=== PATIENT | male | born 1980 | race Caucasian/White ===

== ENCOUNTER → 2017-12-03 | Outpatient (CLI) | payer OTHER ==
[~2017-12-03] MED LIST: EXEN5PENI; INSULANPEN; LISI20 PO; LOVA40 PO
[2017-12-03 11:33] LABS: BASOPHILS ABSOLUTE AUTO 0.02 K/mm3 (0.00-0.23); BASOPHILS PERCENT AUTO 0 % (0-2); EOSINOPHILS ABSOLUTE AUTO 0.21 K/mm3 (0.00-0.68); EOSINOPHILS PERCENT AUTO 2 % (0-6); Hematocrit 47.9 % (37.0-53.0); Hemoglobin 16.2 g/dL (13.5-17.5); IMMATURE GRAN ABSOLUTE AUTO 0.02 K/mm3 (0.00-0.10); IMMATURE GRAN PERCENT AUTO 0 % (0-1); LYMPHOCYTES ABSOLUTE AUTO 2.62 K/mm3 (0.84-5.20); LYMPHOCYTES PERCENT AUTO 27 % (21-46); MONOCYTES ABSOLUTE AUTO 0.52 K/mm3 (0.16-1.47); MONOCYTES PERCENT AUTO 5 % (4-13); Mean Corpuscular HGB 28.8 pg (26.0-34.0); Mean Corpuscular HGB Conc 33.8 g/dL (31.5-36.5); Mean Corpuscular Volume 85 fL (80-100); Mean Platelet Volume 11.1 fL (9.1-12.4); NEUTROPHILS ABSOLUTE AUTO 6.24 K/mm3 (1.96-9.15); NEUTROPHILS PERCENT AUTO 65 % (41-73); Platelet Count 212 K/mm3 (150-400); RDW Coefficient Variation 11.7 % (11.7-14.2); RDW Standard Deviation 36.1 fL (35.1-46.3); Red Blood Cell Count 5.62 M/mm3 (4.30-5.90); White Blood Cell Count 9.63 K/mm3 (4.00-11.30)
[2017-12-03 12:34] LABS: Alanine Aminotransfer (ALT/SGP 21 U/L (12-78); Albumin, Blood 3.8 g/dL (3.4-5.0); Albumin/Globulin Ratio 1.2 (0.8-1.8); Alk Phos 62 U/L (50-136); Anion Gap 9 mmol/L (6-16); Aspartate Aminotrans (AST/SGOT 13 U/L (12-37); Bilirubin, Total 0.6 mg/dL (0.1-1.0); Blood Urea Nitrogen 12 mg/dL (8-24); Bun/Creatinine Ratio 18.2 (12.0-20.0); CHOL/HDL RATIO 3.8; CO2, Blood 26 mmol/L (21-32); Chloride, Blood 102 mmol/L (98-108); Cholesterol 149 mg/dL (50-200); Creatinine, Blood 0.66 mg/dL (0.60-1.20); Globulin, Blood 3.3 g/dL (2.2-4.0); Glomerular Filtration Rate >60 (60-); Glucose, Blood 308 mg/dL (70-99); HDL Cholesterol 39 mg/dL (>39); LDL/HDL RATIO 2.3; Low Density Lipoprotein Chol 89 mg/dL (0-110); Potassium, Blood 4.3 mmol/L (3.5-5.5); Sodium, Blood 137 mmol/L (136-145); Total Protein, Blood 7.1 g/dL (6.4-8.2); Triglycerides 106 mg/dL (30-140); Very Low Density Lipoprot Chol 21 mg/dL (6-28)
== END | disposition home or self-care (01) ==
LOC: LAB SHORT 08:33 → LAB UCHC 08:33
PROVIDERS: Nurse Practitioner Primary Care
DX: E11.9 Type 2 diabetes mellitus without complications (principal)
CPT/HCPCS: 80053; 80061; 83036; 85025

== ENCOUNTER 2019-04-20 04:34 | Emergency (ER) | payer OTHER ==
[~2019-04-20] VITALS: Ht 182.9 cm; Wt 86.2 kg
[~2019-04-20 04:34] MED LIST changes: -LOVA40 PO; +Lovastatin20 MG PO
[2019-04-20] MEDS ORDERED: CEPH500 PO (06:35)
[2019-04-20] MEDS ORDERED: Mupirocin22 GM TOP (06:35)
[2019-04-20] MEDS ORDERED: Bactrim Ds Tab1 EACH PO (06:35)
== END 2019-04-20 07:09 | disposition home or self-care (01) ==
LOC: ER 04:34
DX: L03.116 Cellulitis of left lower limb (principal); E11.9 Type 2 diabetes mellitus without complications; F17.210 Nicotine dependence, cigarettes, uncomplicated; Z79.899 Other long term (current) drug therapy; Z79.4 Long term (current) use of insulin
CPT/HCPCS: 99283; A9270; A9270-GY

== ENCOUNTER 2019-04-22 11:19 | Inpatient (IN) | payer OTHER ==
[~2019-04-22] VITALS: Ht 182.9 cm; Wt 88.8 kg
[~2019-04-22 11:19] MED LIST changes: +Bactrim Ds Tab1 EACH PO; +CEPH500 PO; +Mupirocin22 GM TOP
[2019-04-22] MEDS ORDERED: GLIP5ER PO (15:43)
[2019-04-22] MEDS ORDERED: METF500 PO (15:43)
[2019-04-22] MEDS ORDERED: CYCL10 PO (15:44)
[2019-04-22] MEDS ORDERED: GABA300 PO (15:45)
[2019-04-22] MEDS ORDERED: BASAGLAR K100 UNIT/2 SC (15:46)
[2019-04-22] MEDS ORDERED: SERT25 PO (15:50)
[2019-04-22] MEDS ORDERED: ASPIR 8181 MG PO (15:50)
[2019-04-22] MEDS ORDERED: NOVOLOG MIX 70/30 SC (15:52)
[2019-04-23 05:10] LABS: BASOPHILS ABSOLUTE AUTO 0.02 K/mm3 (0.00-0.23); BASOPHILS PERCENT AUTO 0 % (0-2); EOSINOPHILS ABSOLUTE AUTO 0.24 K/mm3 (0.00-0.68); EOSINOPHILS PERCENT AUTO 2 % (0-6); Hematocrit 44.2 % (37.0-53.0); Hemoglobin 14.5 g/dL (13.5-17.5); IMMATURE GRAN ABSOLUTE AUTO 0.02 K/mm3 (0.00-0.10); IMMATURE GRAN PERCENT AUTO 0 % (0-1); LYMPHOCYTES ABSOLUTE AUTO 3.13 K/mm3 (0.84-5.20); LYMPHOCYTES PERCENT AUTO 28 % (21-46); MONOCYTES PERCENT AUTO 7 % (4-13); Mean Corpuscular HGB 29.2 pg (26.0-34.0); Mean Corpuscular HGB Conc 32.8 g/dL (31.5-36.5); Mean Corpuscular Volume 89 fL (80-100); NEUTROPHILS ABSOLUTE AUTO 6.83 K/mm3 (1.96-9.15); NEUTROPHILS PERCENT AUTO 62 % (41-73); Platelet Count 183 K/mm3 (150-400); RDW Standard Deviation 39.1 fL (35.1-46.3); Red Blood Cell Count 4.97 M/mm3 (4.30-5.90); White Blood Cell Count 11.04 K/mm3 (4.00-11.30)
[2019-04-23 05:31] LABS: U Amphetamine Screen Not Detected; U Barbituate Screen Not Detected; U Methamphetamine Screen Not Detected
[2019-04-23 05:32] LABS: U Benzodiazapine Screen Not Detected; U Buprenorphine Screen Not Detected; U Cannabinoids Screen DETECTED; U Cocaine Screen Not Detected; U Methadone Screen Not Detected; U Opiates Screen Not Detected; U Oxycodone Screen Not Detected; U Propoxyphene Screen Not Detected
[2019-04-23 05:48] LABS: Alanine Aminotransfer (ALT/SGP 19 U/L (12-78); Albumin, Blood 2.9 g/dL (3.4-5.0); Albumin/Globulin Ratio 1.1 (0.8-1.8); Alk Phos 56 U/L (50-136); Anion Gap 5 mmol/L (6-16); Aspartate Aminotrans (AST/SGOT 9 U/L (12-37); Bilirubin, Total 0.4 mg/dL (0.1-1.0); Blood Urea Nitrogen 13 mg/dL (8-24); Bun/Creatinine Ratio 20.8 (12.0-20.0); CO2, Blood 24 mmol/L (21-32); Calcium, Blood 8.1 mg/dL (8.5-10.1); Chloride, Blood 111 mmol/L (98-108); Creatinine, Blood 0.63 mg/dL (0.60-1.20); Globulin, Blood 2.7 g/dL (2.2-4.0); Glomerular Filtration Rate >60 (60-); Glucose, Blood 128 mg/dL (70-99); Magnesium, Blood 1.8 mg/dL (1.6-2.4); Sodium, Blood 140 mmol/L (136-145); Total Protein, Blood 5.6 g/dL (6.4-8.2)
--- NOTE | 2019-04-23 06:49 | NUR ---
Patient comfortable most of night after single dose of ultram upon arrival on floor. Left foot cleansed with sterile saline and skintegrity, then toes (which are abraded and covered in purlulent fluid and bleeding between each toe. very large blister lateral aspect left great toe, and broken open blister on back of toe) were wrapped in petroleum gauze, then again in kerlix. Patient tolerated well. A&OX4, up with FWW to bathroom. GRAM +COCCI IN CHAINS NOTED ON BLOOD CULTURES DRAWN IN ER. PHARMACIST WAS NOTIFIED AND COMBINATION OF VANCOMYCIN AND ROCEPHIN PATIENT IS CURRENTLY RECEIVING ARE APPROPRIATE FOR THESE BACTERIA.
[2019-04-23 14:23] LABS: Vancomycin, Trough 10.3 ug/mL (5.0-10.0)
--- NOTE | 2019-04-23 18:42 | NUR ---
PATIENT A/OX4, UP INDEPENDENTLY IN ROOM. VSS, ON RA. ACHS BLOOD SUGARS, NO SS COEVERAGE NEEDED THIS SHIFT. TOLERATING ADA DIET. 20G IV TO L AC WNL AND SL. ROCEPHIN AND VANCOMYCIN TO TREAT L FOOT INFECTION. PATIENT IS CALM AND COOPERATIVE WITH CARE AND CALLS APPROPRIATELY FOR ASSISTANCE.
--- NOTE | 2019-04-24 18:47 | NUR ---
PATIENT SEEN TODAY BY DR COTTER THE ABSTRACT CHECKER. NONADHERENT DRESSING TO L FOOT WOUND, REDNESS AND SWELLING CONTINUES TO IMPROVE. PATIENT NOW ON MAXIPIME IV. 20G IV TO R AC WNL AND SL. TRAMADOL EFFECTIVE IN CONTROLLING PAIN. UP INDEPENDENTLY IN ROOM. CALM AND COOPERATIVE WITH CARE CALLS APPROPRIATELY FOR ASSISTANCE.
[2019-04-25] MEDS ORDERED: GABA300 PO (10:37)
[2019-04-25] MEDS ORDERED: SERT25 PO (10:39)
[2019-04-25] MEDS ORDERED: LEVFLO500 PO (10:39)
[2019-04-25] MEDS ORDERED: Vsl#3 Capsule1 EACH PO (10:40)
--- NOTE | 2019-04-25 11:30 | NUR ---
DISCHARGE INTRUCTIONS GONE OVER WITH PT AND FAMILY. INSTRUCTED PT ON HOW TO OBTAIN PRESCRIPTIONS FROM [facility] IN [place]. PROVIDED PT WITH WRITTEN SCRIPTS FOR WORK AND DIABETIC SHOES. ENCOURAGE PT TO RE-ESTABLISH PCP AND TO FOLLOW UP. INSTRUCTED PT TO FOLLOW UP WITH WOUND CLINIC AND FOLLOW DRESSING CHANGES. NEW DRESSING APPLIED TO PT'S LEFT FOOT/TOES PRIOR TO DISCHARGE. PROVIDED DISCHARGE EDUCATION TO PT ABOUT NEW MEDICATIONS, FOLLOW UP AND TO TRY TO QUIT SMOKING. BELONGINGS GATHERED AND GIVEN TO PT. PT ESCORTED OUT VIA WHEEL CHAIR BY EDNA HALL.
== END 2019-04-25 11:35 | disposition home or self-care (01) | DRG 872 ==
LOC: ER 11:19 → MEDS 20:37 → EDPENDDIS 04-25 10:01 → ENPENDDIS 04-25 10:01 → MEDS 04-25 11:35
PROVIDERS: Nurse Practitioner Acute Care; ADMIT Internal Medicine
DX: A41.81 Sepsis due to Enterococcus (principal); L03.116 Cellulitis of left lower limb; I10 Essential (primary) hypertension; E11.42 Type 2 diabetes mellitus with diabetic polyneuropathy; E78.5 Hyperlipidemia, unspecified; F32.9 Major depressive disorder, single episode, unspecified; F17.210 Nicotine dependence, cigarettes, uncomplicated; Z79.4 Long term (current) use of insulin
CPT/HCPCS: 36415; 73701; 80053; 80202; 82947; 83036; 83605; 83735; 85025; 87040; 96365-59; 96366; 96367-59; 99285-25; J0692; J0696; J3370; J7030; J7050; Q9967

== ENCOUNTER 2019-05-03 00:11 | Day surgery (SDC) | payer OTHER ==
[~2019-05-03 00:11] MED LIST changes: +ASPIR 8181 MG PO; +BASAGLAR K100 UNIT/2 SC; +CYCL10 PO; +GABA300 PO; +GLIP5ER PO; +LEVFLO500 PO; +METF500 PO; +NOVOLOG MIX 70/30 SC; +SERT25 PO; +Vsl#3 Capsule1 EACH PO
== END 2019-05-03 23:01 | disposition home or self-care (01) ==
LOC: WOUND 00:11
DX: E11.621 Type 2 diabetes mellitus with foot ulcer (principal); I73.1 Thromboangiitis obliterans [Buerger's disease]; F17.210 Nicotine dependence, cigarettes, uncomplicated; J45.909 Unspecified asthma, uncomplicated; E78.5 Hyperlipidemia, unspecified; I10 Essential (primary) hypertension; L97.429 Non-pressure chronic ulcer of left heel and midfoot with unspecified severity; Z79.899 Other long term (current) drug therapy; Z79.82 Long term (current) use of aspirin; Z79.4 Long term (current) use of insulin
CPT/HCPCS: G0463

== ENCOUNTER 2019-05-10 15:00 | Day surgery (SDC) | payer OTHER | END 2019-05-10 23:42 | disposition home or self-care (01) | LOC: WOUND 15:00 | DX: E11.621 Type 2 diabetes mellitus with foot ulcer (principal); L97.422 Non-pressure chronic ulcer of left heel and midfoot with fat layer exposed; F17.210 Nicotine dependence, cigarettes, uncomplicated; E78.5 Hyperlipidemia, unspecified; I10 Essential (primary) hypertension; I73.1 Thromboangiitis obliterans [Buerger's disease]; Z79.82 Long term (current) use of aspirin; Z79.4 Long term (current) use of insulin; Z79.899 Other long term (current) drug therapy | CPT/HCPCS: G0463 ==

== ENCOUNTER 2019-05-16 00:10 | Day surgery (SDC) | payer OTHER | END 2019-05-16 22:36 | disposition home or self-care (01) | LOC: WOUND 00:10 | DX: I73.1 Thromboangiitis obliterans [Buerger's disease] (principal); E11.621 Type 2 diabetes mellitus with foot ulcer; L97.422 Non-pressure chronic ulcer of left heel and midfoot with fat layer exposed; I10 Essential (primary) hypertension; E78.5 Hyperlipidemia, unspecified; J45.909 Unspecified asthma, uncomplicated; F17.210 Nicotine dependence, cigarettes, uncomplicated; Z79.82 Long term (current) use of aspirin; Z79.4 Long term (current) use of insulin; Z79.899 Other long term (current) drug therapy ==

== ENCOUNTER 2019-05-23 17:10 | Inpatient (IN) | payer OTHER ==
[~2019-05-23] VITALS: Ht 182.9 cm; Wt 90.9 kg
[2019-05-23 19:16] LABS: BASOPHILS ABSOLUTE AUTO 0.03 K/mm3 (0.00-0.23); BASOPHILS PERCENT AUTO 0 % (0-2); EOSINOPHILS ABSOLUTE AUTO 0.52 K/mm3 (0.00-0.68); EOSINOPHILS PERCENT AUTO 5 % (0-6); Hematocrit 45.2 % (37.0-53.0); Hemoglobin 14.7 g/dL (13.5-17.5); IMMATURE GRAN ABSOLUTE AUTO 0.03 K/mm3 (0.00-0.10); IMMATURE GRAN PERCENT AUTO 0 % (0-1); LYMPHOCYTES ABSOLUTE AUTO 3.24 K/mm3 (0.84-5.20); LYMPHOCYTES PERCENT AUTO 31 % (21-46); MONOCYTES ABSOLUTE AUTO 0.61 K/mm3 (0.16-1.47); MONOCYTES PERCENT AUTO 6 % (4-13); Mean Corpuscular HGB Conc 32.5 g/dL (31.5-36.5); Mean Corpuscular Volume 89 fL (80-100); Mean Platelet Volume 10.8 fL (9.1-12.4); NEUTROPHILS ABSOLUTE AUTO 5.92 K/mm3 (1.96-9.15); NEUTROPHILS PERCENT AUTO 57 % (41-73); Platelet Count 232 K/mm3 (150-400); RDW Coefficient Variation 11.8 % (11.7-14.2); RDW Standard Deviation 38.5 fL (35.1-46.3); Red Blood Cell Count 5.07 M/mm3 (4.30-5.90); White Blood Cell Count 10.35 K/mm3 (4.00-11.30)
[2019-05-23 19:32] LABS: Anion Gap 1 mmol/L (6-16); Blood Urea Nitrogen 14 mg/dL (8-24); Bun/Creatinine Ratio 27.3 (12.0-20.0); CO2, Blood 31 mmol/L (21-32); Calcium, Blood 9.2 mg/dL (8.5-10.1); Chloride, Blood 103 mmol/L (98-108); Creatinine, Blood 0.51 mg/dL (0.60-1.20); Glomerular Filtration Rate >60 (60-); Glucose, Blood 339 mg/dL (70-99); Potassium, Blood 4.6 mmol/L (3.5-5.5); Sodium, Blood 135 mmol/L (136-145)
[2019-05-24 04:55] LABS: BASOPHILS ABSOLUTE AUTO 0.04 K/mm3 (0.00-0.23); BASOPHILS PERCENT AUTO 0 % (0-2); EOSINOPHILS PERCENT AUTO 5 % (0-6); Hematocrit 40.4 % (37.0-53.0); Hemoglobin 13.1 g/dL (13.5-17.5); IMMATURE GRAN ABSOLUTE AUTO 0.04 K/mm3 (0.00-0.10); IMMATURE GRAN PERCENT AUTO 0 % (0-1); LYMPHOCYTES PERCENT AUTO 41 % (21-46); MONOCYTES ABSOLUTE AUTO 0.58 K/mm3 (0.16-1.47); MONOCYTES PERCENT AUTO 6 % (4-13); Mean Corpuscular HGB 28.5 pg (26.0-34.0); Mean Corpuscular HGB Conc 32.4 g/dL (31.5-36.5); Mean Corpuscular Volume 88 fL (80-100); Mean Platelet Volume 10.3 fL (9.1-12.4); NEUTROPHILS ABSOLUTE AUTO 4.36 K/mm3 (1.96-9.15); NEUTROPHILS PERCENT AUTO 46 % (41-73); Platelet Count 198 K/mm3 (150-400); RDW Coefficient Variation 11.9 % (11.7-14.2); RDW Standard Deviation 38.2 fL (35.1-46.3); Red Blood Cell Count 4.59 M/mm3 (4.30-5.90); White Blood Cell Count 9.42 K/mm3 (4.00-11.30)
--- NOTE | 2019-05-24 05:09 | NUR ---
SHIFT SUMMARY- PT. ARRIVED FROM ED. A&OX4, INDEPENDENT IN ROOM. PT. WITH CELLULITIS TO THE LT FOOT. C/O PAIN TO LT TOES. MEDICATED PER EMAR, WITH GOOD RELIEF. CONSULT CALLED TO PODIATRY FOR PT. TO BE SEEN THIS AM. PT. APPEAARS TO BE RESTING COMFORTABLY IN BED, NO APPARENT DISTRESS NOTED. CALL LIGHT WITHIN REACH AND SIDE RAILS UP X2. WILL CONT TO MONITOR.
[2019-05-24 05:15] LABS: Anion Gap 3 mmol/L (6-16); Blood Urea Nitrogen 15 mg/dL (8-24); Bun/Creatinine Ratio 23.3 (12.0-20.0); CO2, Blood 29 mmol/L (21-32); Calcium, Blood 8.4 mg/dL (8.5-10.1); Chloride, Blood 107 mmol/L (98-108); Creatinine, Blood 0.64 mg/dL (0.60-1.20); Glomerular Filtration Rate >60 (60-); Glucose, Blood 255 mg/dL (70-99); Potassium, Blood 4.2 mmol/L (3.5-5.5); Sodium, Blood 139 mmol/L (136-145)
--- NOTE | 2019-05-24 19:06 | NUR ---
PATIENT IS ALERT AND ORIENTED AND COOPERATIVE WITH CARE. CURRENT SMOKER. PATIENT'S FATHER AND PATIENT WOULD LIKE A SECOND OPINION FROM A SALES REPRESENTATIVE PRINTING SUPPLIES OR TO SPEAK WITH DR. ORDAZ AGAIN BEFORE THE SCHEDULED SURGERY TOMORROW MORNING. NIGHT RN NOTIFIED OF THIS.
--- NOTE | 2019-05-25 04:44 | NUR ---
SHIFT SUMMARY- NO ACUTE CHANGES OVERNIGHT. PT. ASLEEP T/O MOST OF THE SHIFT, NO APPARENT DISTRESS NOTED. PT. EXPRESSED CONCERN REGARDING SURGERY SCHEDULED FOR THIS AM. STATED UNSURE IF WOULD LIKE TO GO THROUGH WITH THE SURGERY, WOULD LIKE SECOND OPINION, OR TO SPEAK WITH DR. ORDAZ. CHARGE NURSE NOTIFED. PT. ADVISED TO SPEAK WITH DR. ORDAZ THIS AM BEOFRE SURGERY. PT. VERBALIZED UNDERSTANDING. PT. NPO SINCE MN. DAY SHIFT RN TO BE MADE AWARE. CALL LIGHT WTIHIN REACH AND SIDE RAILS UP X2. WILL CONT TO MONITOR.
--- NOTE | 2019-05-25 06:54 | NUR ---
Patient is alert and oriented and agreed to care on 05/25/19.
--- NOTE | 2019-05-25 07:36 | NUR ---
History, Chart, Medications and Allergies reviewed before start of procedure. Patient confirms NPO status and agrees with scheduled surgery. Pre-Op teaching done. Pt verbalizes understanding.
--- NOTE | 2019-05-25 08:03 | NUR ---
PATIENT DID NOT EAT BREAKFAST THIS SHIFT DUE TO BEING NPO AND NOT BEING PRESENT HE WAS IN A PROCEDURE.
[2019-05-25] MEDS ORDERED: TRAM50 PO (16:16)
[2019-05-25] MEDS ORDERED: Augmentin 875-1 EACH PO (16:16)
--- NOTE | 2019-05-25 17:21 | NUR ---
PATIENT DC'D TO HOME. RX MEDICATIONS FAXED TO [facility] IN [place]. HARD SCRIPT FOR TRAMADOL GIVEN TO PATIENT. DC INSTRUCTIONS AND EDUCATION DISCUSSED WITH PATIENT AND COPY PROVIDED. PATIENT DENIES ANY FURTHER QUESTIONS OR CONCERNS.
--- NOTE | 2019-05-26 07:44 | NUR ---
05/26/19 0744 Connie Davis VERIFICATIONS: EDIT CHART.
[2019-06-07] MEDS ORDERED: CEPH500 PO (14:10)
[2019-06-07] MEDS ORDERED: Bactrim Ds Tab1 EACH PO (14:10)
== END 2019-05-25 17:12 | disposition home or self-care (01) | DRG 256 ==
LOC: ER 17:10 → SURS 17:11 → MEDS 17:11
PROVIDERS: Nurse Practitioner Acute Care; Physician Assistant; Podiatrist Foot & Ankle Surgery; ADMIT Internal Medicine
PROC: 0Y6S0Z0 Detachment at Left 2nd Toe, Complete, Open Approach (ICD-10-PCS; 2019-05-25)
PROC: 0Y6Q0Z0 Detachment at Left 1st Toe, Complete, Open Approach (ICD-10-PCS; principal; 2019-05-25 07:30)
DX: E11.52 Type 2 diabetes mellitus with diabetic peripheral angiopathy with gangrene (principal); I96 Gangrene, not elsewhere classified; I10 Essential (primary) hypertension; E11.40 Type 2 diabetes mellitus with diabetic neuropathy, unspecified; E78.5 Hyperlipidemia, unspecified; F17.210 Nicotine dependence, cigarettes, uncomplicated; J45.909 Unspecified asthma, uncomplicated; Z79.4 Long term (current) use of insulin; Z79.82 Long term (current) use of aspirin; E66.9 Obesity, unspecified; Z68.26 Body mass index [BMI] 26.0-26.9, adult
CPT/HCPCS: 36415; 73620; 80048; 82947; 83605; 85025; 87040; 88305; 88311; 96365; 96366; 96367; 96376; 99285-25; A9270; A9270-GY; G0378; J0696; J2370; J2405; J2543; J2704; J2765; J3010; J3370; J7030; J7050; J7120

== ENCOUNTER 2019-09-01 14:44 | Inpatient (IN) | payer OTHER ==
[~2019-09-01] VITALS: Ht 182.9 cm; Wt 90.4 kg
[~2019-09-01 14:44] MED LIST changes: +Augmentin 875-1 EACH PO; +BACTRIM DS TAB1 EACH PO; -BASAGLAR K100 UNIT/2 SC; +BASAGLAR K100 UNIT/3 SC; -LISI20 PO; +TRAM50 PO
[2019-09-01 16:05] LABS: BASOPHILS ABSOLUTE AUTO 0.03 K/mm3 (0.00-0.23); BASOPHILS PERCENT AUTO 0 % (0-2); EOSINOPHILS ABSOLUTE AUTO 0.23 K/mm3 (0.00-0.68); EOSINOPHILS PERCENT AUTO 2 % (0-6); Hematocrit 41.8 % (37.0-53.0); Hemoglobin 13.6 g/dL (13.5-17.5); IMMATURE GRAN ABSOLUTE AUTO 0.02 K/mm3 (0.00-0.10); IMMATURE GRAN PERCENT AUTO 0 % (0-1); LYMPHOCYTES PERCENT AUTO 30 % (21-46); MONOCYTES ABSOLUTE AUTO 0.61 K/mm3 (0.16-1.47); MONOCYTES PERCENT AUTO 6 % (4-13); Mean Corpuscular HGB 28.6 pg (26.0-34.0); Mean Corpuscular HGB Conc 32.5 g/dL (31.5-36.5); Mean Corpuscular Volume 88 fL (80-100); Mean Platelet Volume 10.1 fL (9.1-12.4); NEUTROPHILS ABSOLUTE AUTO 5.74 K/mm3 (1.96-9.15); NEUTROPHILS PERCENT AUTO 60 % (41-73); Platelet Count 302 K/mm3 (150-400); RDW Coefficient Variation 12.8 % (11.7-14.2); RDW Standard Deviation 41.5 fL (35.1-46.3); Red Blood Cell Count 4.75 M/mm3 (4.30-5.90); White Blood Cell Count 9.53 K/mm3 (4.00-11.30)
[2019-09-01] MEDS ORDERED: GABA300 PO (16:21)
[2019-09-01 16:23] LABS: Alanine Aminotransfer (ALT/SGP 16 U/L (12-78); Albumin, Blood 3.5 g/dL (3.4-5.0); Albumin/Globulin Ratio 0.8 (0.8-1.8); Alk Phos 86 U/L (50-136); Anion Gap 5 mmol/L (6-16); Aspartate Aminotrans (AST/SGOT 6 U/L (12-37); Bilirubin, Total 0.2 mg/dL (0.1-1.0); Blood Urea Nitrogen 15 mg/dL (8-24); Bun/Creatinine Ratio 19.1 (12.0-20.0); CO2, Blood 27 mmol/L (21-32); Calcium, Blood 9.1 mg/dL (8.5-10.1); Chloride, Blood 102 mmol/L (98-108); Creatinine, Blood 0.79 mg/dL (0.60-1.20); Globulin, Blood 4.3 g/dL (2.2-4.0); Glomerular Filtration Rate >60 (60-); Glucose, Blood 258 mg/dL (70-99); Potassium, Blood 4.5 mmol/L (3.5-5.5); Sodium, Blood 134 mmol/L (136-145); Total Protein, Blood 7.8 g/dL (6.4-8.2)
[2019-09-01] MEDS ORDERED: LISI20 PO (16:24)
[2019-09-01] MEDS ORDERED: HUMALOG KW100 UNIT/1 SC (16:27)
[2019-09-01] MEDS ORDERED: Amaryl1 MG PO (16:45)
--- NOTE | 2019-09-01 18:47 | NUR ---
NEW ER ADMIT PT ARRIVE TO APPROX 1830. HE IS A/O X4. STATE HAS NOT EATEN. DIET ORDER CLARIFIED w DR BARRIENTOS, ADA DINNER TRAY PROVIDED. HE WILL BE NPO AFTER MN FOR SURG TOMORROW w CHOKE SETTER/DR ORDAZ. L FOOT DRSG CDI. NO STATED PAIN @ THIS TIME AFTER ER TX. PT ORIENTED TO /CALL SYSTEM. WILL HAND-OFF TO NOC RN TO COMPLETE ADMISSION.
--- NOTE | 2019-09-02 04:52 | NUR ---
SHIFT SUMMARY PT HAS RESTED MOST OF THE NIGHT. PT PAIN IN HIS LEFT FOOT HAS BEEN WELL CONTROLLED. MEDICATED X1 WITH HYDROCODONE WITH EFFECT. DRESSING INTACT TO LEFT FOOT, DRESSED BY DR. ORDAZ JUST BEFORE ADMISSION. DRESSING DRY AND INTACT. PLAN IS FOR DEBRIDEMENT OF LEFT FOOT WOUND TODAY. PT HAS BEEN NPO SINCE MIDNIGHT. IV VANCO PER ORDERS. VITALS STABLE. PT A/OX4, INDEPENDENT. NO ACUTE CHANGES TO REPORT. BED IN LOWEST POSITION, CALL LIGHT WITHIN REACH. WILL CONTINUE TO MONITOR AND REPORT TO ONCOMING RN.
[2019-09-02 05:38] LABS: BASOPHILS ABSOLUTE AUTO 0.02 K/mm3 (0.00-0.23); BASOPHILS PERCENT AUTO 0 % (0-2); EOSINOPHILS ABSOLUTE AUTO 0.29 K/mm3 (0.00-0.68); EOSINOPHILS PERCENT AUTO 3 % (0-6); Hematocrit 40.1 % (37.0-53.0); Hemoglobin 12.9 g/dL (13.5-17.5); IMMATURE GRAN ABSOLUTE AUTO 0.03 K/mm3 (0.00-0.10); IMMATURE GRAN PERCENT AUTO 0 % (0-1); LYMPHOCYTES ABSOLUTE AUTO 3.12 K/mm3 (0.84-5.20); LYMPHOCYTES PERCENT AUTO 34 % (21-46); MONOCYTES ABSOLUTE AUTO 0.75 K/mm3 (0.16-1.47); MONOCYTES PERCENT AUTO 8 % (4-13); Mean Corpuscular HGB 28.7 pg (26.0-34.0); Mean Corpuscular HGB Conc 32.2 g/dL (31.5-36.5); Mean Corpuscular Volume 89 fL (80-100); NEUTROPHILS ABSOLUTE AUTO 5.11 K/mm3 (1.96-9.15); NEUTROPHILS PERCENT AUTO 55 % (41-73); Platelet Count 253 K/mm3 (150-400); RDW Standard Deviation 42.5 fL (35.1-46.3); White Blood Cell Count 9.32 K/mm3 (4.00-11.30)
[2019-09-02 05:54] LABS: International Normalized Ratio 1.07; Prothrombin Time Results 11.4 Sec (9.7-11.5)
[2019-09-02 06:00] LABS: Anion Gap 1 mmol/L (6-16); Blood Urea Nitrogen 15 mg/dL (8-24); Bun/Creatinine Ratio 17.2 (12.0-20.0); CO2, Blood 29 mmol/L (21-32); Calcium, Blood 8.6 mg/dL (8.5-10.1); Chloride, Blood 104 mmol/L (98-108); Creatinine, Blood 0.87 mg/dL (0.60-1.20); Glomerular Filtration Rate >60 (60-); Glucose, Blood 204 mg/dL (70-99); Potassium, Blood 4.8 mmol/L (3.5-5.5); Sodium, Blood 134 mmol/L (136-145)
--- NOTE | 2019-09-02 06:40 | NUR ---
DR. ORDAZ IN ROOM TO GO OVER CONSENT WITH PT. HE IS REQUESTED THAT A PICC LINE BE PLACED. ORDER HAS BEEN PLACED BY SUPERVISORY CLERK. DR. ORDAZ REMOVED THE DRESSING HE PLACED RIGHT BEFORE PT WAS ADMITTED. CLEANED, TOOK PHOTOS AND REDRESSED WOUND AFTER HE LEFT.
--- NOTE | 2019-09-02 15:25 | NUR ---
PATIENT HAS HAD AN UNEVENTFUL DAY. REMAINS NPO HE AWAITS HIS I&D TO HIS L FOOT WITH DR ORDAZ. COMPLAINED OF PAIN TO THAT L FOOT EARLY THIS MORNING WITH EFFECTIVE RESULTS FROM REQUESTED NORCO. VITALS HAVE BEEN STABLE AND WNL. PATIENT CONTINUES ON IV ABX WITHOUT S/SX OF ADVERSE REACTIONS NOTED OR REPORTED. PATIENT IS PLEASANT AND COOPERATIVE WITH STAFF. CALLS FOR STAFF ASSIST APPROPRIATELY. NO ACUTE CHANGES TO REPORT OF AT THIS TIME.
--- NOTE | 2019-09-02 22:23 | NUR ---
2015 REPORT RECEIVED FROM SAHARA RN, PACU; PT TO ROOM 363 PER CART FROM PACU; PT LEFT FOOT MARISELA WRAP DRESSING DRY AND INTACT; ALERT AND ORIENTED X 4;
--- NOTE | 2019-09-03 04:43 | NUR ---
SHIFT SUMMARY: 38 Y/O MALE RESTED COMFORTABLY ALL SHIFT AFTER RETURNING FROM SURGERY AT BEGINNING SHIFT FOR I&D OF LEFT FOOT; PTS LEFT FOOT MARISELA WRAP DRESSING DRY AND INTACT WITH NO DRAINAGE NOTED (PT HAS NYDIA DRAIN PER PACU NURSE); PT C/O LEFT FOOT PAIN RATED 8/10 WITH NORCO X 2 TABS GIVEN WITH RELIEF FELT; ALERT AND ORIENTED X 4; VOIDING URINE WITHOUT ISSUE POSTOP; BED LOW POSITION WITH CALL LIGHT AT SIDE.
[2019-09-03 09:09] LABS: Hematocrit 40.1 % (37.0-53.0); Hemoglobin 13.4 g/dL (13.5-17.5); Mean Corpuscular HGB 29.1 pg (26.0-34.0); Mean Corpuscular HGB Conc 33.4 g/dL (31.5-36.5); Mean Corpuscular Volume 87 fL (80-100); Mean Platelet Volume 9.7 fL (9.1-12.4); Platelet Count 238 K/mm3 (150-400); RDW Coefficient Variation 12.6 % (11.7-14.2); Red Blood Cell Count 4.61 M/mm3 (4.30-5.90); White Blood Cell Count 10.15 K/mm3 (4.00-11.30)
[2019-09-03 09:27] LABS: Albumin, Blood 3.1 g/dL (3.4-5.0); Anion Gap 4 mmol/L (6-16); Blood Urea Nitrogen 14 mg/dL (8-24); Bun/Creatinine Ratio 20.4 (12.0-20.0); CO2, Blood 27 mmol/L (21-32); Calcium, Blood 8.5 mg/dL (8.5-10.1); Chloride, Blood 105 mmol/L (98-108); Creatinine, Blood 0.69 mg/dL (0.60-1.20); Glomerular Filtration Rate >60 (60-); Glucose, Blood 243 mg/dL (70-99); Potassium, Blood 4.5 mmol/L (3.5-5.5); Sodium, Blood 136 mmol/L (136-145); Vancomycin, Trough 13.9 ug/mL (5.0-10.0)
--- NOTE | 2019-09-03 16:44 | NUR ---
PATIENT HAD AN UNEVENTFUL SHIFT. VITALS HAVE BEEN STABLE AND WNL. CONTINUES ON IV VANCO WITHOUT S/SX OF ADVERSE REACTIONS NOTED OR REPORTED. ONLY COMPLAINED OF PAIN TO HIS SURGICAL SITE ONCE THIS SHIFT AND WAS GIVEN NORCO PER REQUEST. PLEASANT AND COOPERATIVE WITH STAFF. NO ACUTE CHANGES TO REPORT ON AT THIS TIME. WILL CONTINUE TO MONITOR AND PROVIDE CARE NEEDED.
--- NOTE | 2019-09-04 03:49 | NUR ---
SHIFT SUMMARY: 38 Y/O MALE RESTED COMFORTABLY ALL SHIFT; PTS LEFT FOOT MARISELA WRAP DRESSING DRY AND INTACT; PT ABLE TO TRANSFER AND AMBULATE TO BATHROOM AND BACK WHILE WEARING WALKING CAST BOOT; PT HAPPY AND COOPERATIVE AND EAGER TO RETURN HOME; PT DENIES NEED FOR ANY DIABETIC EDUCATION AT THIS TIME; PT C/O LEFT FOOT PAIN 09/29 AND NORCO 5/325MG X 2 GIVEN WITH GOOD PAIN RELIEF FELT; PT ANTICPATING POSSIBLE DISCHARGE HOME TODAY; PT BED LOW POSITIION WITH CALL LIGHT AT SIDE.
--- NOTE | 2019-09-04 13:44 | NUR ---
09/04/19 1344 Connie Davis VERIFICATIONS: EDIT CHART.
--- NOTE | 2019-09-04 17:20 | NUR ---
SHIFT SUMMARY: NO ACUTE EVENTS. PT IS DISAPPOINTED THAT HIS D/C HAS BEEN DELAYED BY ONE DAY. DR. ORDAZ CAME IN THIS MORNING, REMOVED NYDIA DRAIN AND ASSESSED WOUND. PT C/O PAIN IN L FOOT; MEDICATED PER EMAR WITH ADEQUATE RELIEF. ALSO C/O SHAKINESS POSSIBLY R/T HYPOGLYCEMIA; CBG CHECKED AT THAT TIME WAS 109. PATIENT GIVEN ROOT BEER AND DINNER TRAY WAS COMING SOON. RE-CHECKED CBG 124 AND PT STATED HE FELT BETTER WITH SXS RESOLVED. VOIDING ADEQUATELY. PLAN IS FOR D/C TOMORROW AFTER HOME ABX VS DAILY SHIRLEY IS RESOLVED.
--- NOTE | 2019-09-05 06:46 | NUR ---
SHIFT SUMMARY A/O, ABLE TO MAKE NEEDS KNOWN. COOPERATIVE WITH CARE. CALL AND ANSWERS QUESTIONS APPROPRIATELY. C/O PAIN/DISCOMFORT @ BEDTIME. INDEPENDENT IN ROOM. APPEARED TO REST OFF AND ON. IV ABX INFUSED WITHOUT COMPLICATIONS. VSS/AFEBRILE. L FOOT DRESSING C/D/I. NO ACUTE CHANGES NOTED OVERNIGHT. BED IN LOWEST POSITION. CALL LIGHT AND BELONGINGS WITHIN REACH. WCTM. REPORT TO ONCOMING RN.
[2019-09-05 08:20] LABS: Vancomycin, Trough 20.2 ug/mL (5.0-10.0)
[2019-09-05 16:14] LABS: C-REACTIVE PROTEIN, EXT RANGE 0.851 mg/dL (0.000-0.300)
[2019-09-05] MEDS ORDERED: ACET325 PO (17:22)
[2019-09-05] MEDS ORDERED: CUBICIN500 MG IV (17:28)
[2019-09-05] MEDS ORDERED: DOCU100 PO (17:28)
[2019-09-05] MEDS ORDERED: HYDR1TAB94 PO (17:30)
[2019-09-05] MEDS ORDERED: CVS PROBIOTIC1 EAC2 (17:32)
[2019-09-05] MEDS ORDERED: CVS PROBIOTIC1 EAC2 PO (17:33)
[2019-09-05] MEDS ORDERED: RIFA300 PO (17:35)
[2019-09-05] MEDS ORDERED: SENN187 PO (17:35)
--- NOTE | 2019-09-05 18:21 | NUR ---
PT DISCHARGED AT 1730 PT DISCHARGE. ALL PAPERWORK REVIEWED AND EDUCATIONAL MATERIAL SENT. PT HAD APPOINTMENT SCHEDULED AND REVIEWED. PT VERBALIZED UNDERSTANDING OF NEED FOR ANTIBOTIC TREATMENT FOR 6 WEEKS. ALL MEDS FAXED AND PT WAS EXCORTED OUT TO [facility] VIA WHEELCHAIR BY THIS RECEIVER WITH FATHER TO TRANSPORT. NO DISTRESS NOTED AOX4.
== END 2019-09-05 17:46 | disposition home or self-care (01) | DRG 857 ==
LOC: ER 14:44 → MEDS 14:45
PROVIDERS: Internal Medicine; Internal Medicine Infectious Disease; Nurse Practitioner Acute Care; Physician Assistant; Podiatrist Foot & Ankle Surgery; ADMIT Hospitalist
PROC: 02HV33Z Insertion of Infusion Device into Superior Vena Cava, Percutaneous Approach (ICD-10-PCS; 2019-09-02)
PROC: 0QBP0ZZ Excision of Left Metatarsal, Open Approach (ICD-10-PCS; principal; 2019-09-02 17:30)
DX: T81.42XA Infection following a procedure, deep incisional surgical site, initial encounter (principal); M86.9 Osteomyelitis, unspecified; T87.89 Other complications of amputation stump; L08.89 Other specified local infections of the skin and subcutaneous tissue; Z89.512 Acquired absence of left leg below knee; E11.40 Type 2 diabetes mellitus with diabetic neuropathy, unspecified; E11.69 Type 2 diabetes mellitus with other specified complication; B95.62 Methicillin resistant Staphylococcus aureus infection as the cause of diseases classified elsewhere; Z79.4 Long term (current) use of insulin; F32.9 Major depressive disorder, single episode, unspecified; E78.5 Hyperlipidemia, unspecified; I10 Essential (primary) hypertension; Z87.891 Personal history of nicotine dependence; E11.65 Type 2 diabetes mellitus with hyperglycemia
CPT/HCPCS: 36415; 36569; 73630; 80048; 80053; 80069; 80202; 82550; 82947; 85025; 85027; 85610; 85651; 85730; 86140; 87070; 87075; 87077; 87147; 87186; 87205; 96365-59; 96366; 96366-59; 96375-59; 99285-25; A9270-GY; C1751; G0378; J0878; J1170; J2250; J2405; J2704; J3010; J3370; J7050; U0002

== ENCOUNTER 2019-09-07 00:07 | Day surgery (SDC) | payer OTHER ==
[~2019-09-07 00:07] MED LIST changes: +ACET325 PO; +Amaryl1 MG PO; +CUBICIN500 MG IV; +CVS PROBIOTIC1 EAC2; +CVS PROBIOTIC1 EAC2 PO; +DOCU100 PO; +HUMALOG KW100 UNIT/1 SC; +HYDR1TAB94 PO; +LISI20 PO; +RIFA300 PO; +SENN187 PO
== END 2019-09-07 09:15 | disposition home or self-care (01) ==
LOC: ATC 00:07
DX: M86.9 Osteomyelitis, unspecified (principal); E11.40 Type 2 diabetes mellitus with diabetic neuropathy, unspecified; I10 Essential (primary) hypertension; Z79.84 Long term (current) use of oral hypoglycemic drugs; Z79.899 Other long term (current) drug therapy
CPT/HCPCS: 96365; J0878

== ENCOUNTER 2019-09-08 00:06 | Day surgery (SDC) | payer OTHER | END 2019-09-08 09:26 | disposition home or self-care (01) | LOC: ATC 00:06 | DX: T87.44 Infection of amputation stump, left lower extremity (principal); B95.62 Methicillin resistant Staphylococcus aureus infection as the cause of diseases classified elsewhere; E11.40 Type 2 diabetes mellitus with diabetic neuropathy, unspecified; J45.909 Unspecified asthma, uncomplicated; I10 Essential (primary) hypertension; E78.5 Hyperlipidemia, unspecified; Z87.891 Personal history of nicotine dependence; Z79.84 Long term (current) use of oral hypoglycemic drugs; Z79.899 Other long term (current) drug therapy; Z79.82 Long term (current) use of aspirin | CPT/HCPCS: 96365; J0878 ==

== ENCOUNTER 2019-09-09 01:24 | Day surgery (SDC) | payer OTHER | END 2019-09-09 09:25 | disposition home or self-care (01) | LOC: ATC 01:24 | DX: T87.44 Infection of amputation stump, left lower extremity (principal); B95.62 Methicillin resistant Staphylococcus aureus infection as the cause of diseases classified elsewhere; E11.40 Type 2 diabetes mellitus with diabetic neuropathy, unspecified; I10 Essential (primary) hypertension; E78.5 Hyperlipidemia, unspecified; J45.909 Unspecified asthma, uncomplicated; Z79.899 Other long term (current) drug therapy; Z79.82 Long term (current) use of aspirin; Z79.4 Long term (current) use of insulin; Z87.891 Personal history of nicotine dependence | CPT/HCPCS: 96365; J0878 ==

== ENCOUNTER 2019-09-10 01:24 | Day surgery (SDC) | payer OTHER | END 2019-09-10 09:05 | disposition home or self-care (01) | LOC: ATC 01:24 | DX: M86.9 Osteomyelitis, unspecified (principal); E11.40 Type 2 diabetes mellitus with diabetic neuropathy, unspecified; J45.909 Unspecified asthma, uncomplicated; I10 Essential (primary) hypertension; E78.5 Hyperlipidemia, unspecified; Z87.891 Personal history of nicotine dependence | CPT/HCPCS: 96365; J0878 ==

== ENCOUNTER 2019-09-11 00:48 | Day surgery (SDC) | payer OTHER | END 2019-09-11 09:26 | disposition home or self-care (01) | LOC: ATC 00:48 | DX: M86.9 Osteomyelitis, unspecified (principal); I10 Essential (primary) hypertension; E78.5 Hyperlipidemia, unspecified; E11.40 Type 2 diabetes mellitus with diabetic neuropathy, unspecified; J45.909 Unspecified asthma, uncomplicated; Z87.891 Personal history of nicotine dependence | CPT/HCPCS: 96365; J0878 ==

== ENCOUNTER 2019-09-12 00:08 | Day surgery (SDC) | payer OTHER ==
--- NOTE | 2019-09-12 09:34 | NUR ---
NEW TEGADERM DRESSING APPLIED TO POCKET SLEEVE PER PT REQUEST
== END 2019-09-12 09:27 | disposition home or self-care (01) ==
LOC: ATC 00:08
DX: T87.44 Infection of amputation stump, left lower extremity (principal); B95.62 Methicillin resistant Staphylococcus aureus infection as the cause of diseases classified elsewhere; E11.40 Type 2 diabetes mellitus with diabetic neuropathy, unspecified; I10 Essential (primary) hypertension; J45.909 Unspecified asthma, uncomplicated; E78.5 Hyperlipidemia, unspecified; Z79.4 Long term (current) use of insulin; Z87.891 Personal history of nicotine dependence; Z79.899 Other long term (current) drug therapy; Z79.82 Long term (current) use of aspirin
CPT/HCPCS: 96365; J0878

== ENCOUNTER 2019-09-18 00:28 | Day surgery (SDC) | payer OTHER ==
--- NOTE | 2019-09-18 09:31 | NUR ---
PT STATES THAT THERE IS STILL PAIN AT SITE OF PICC AND NOW WHEN HE MOVES HIS ARM AROUND IT IS PAINFUL. PICC FLUSHES FINE, PT DENIES ANY DISCOMFORT FROM FLUSH. PICC SITE AREA IS WARM TO TOUCH, PT INSTRUCTED TO GO TO ED FOR POSSIBLE CLOT.
== END 2019-09-18 09:26 | disposition home or self-care (01) ==
LOC: ATC 00:28
DX: T87.44 Infection of amputation stump, left lower extremity (principal); M86.8X7 Other osteomyelitis, ankle and foot; B95.62 Methicillin resistant Staphylococcus aureus infection as the cause of diseases classified elsewhere; E11.40 Type 2 diabetes mellitus with diabetic neuropathy, unspecified; I10 Essential (primary) hypertension; J45.909 Unspecified asthma, uncomplicated; E78.5 Hyperlipidemia, unspecified; Z79.4 Long term (current) use of insulin; Z87.891 Personal history of nicotine dependence; Z79.84 Long term (current) use of oral hypoglycemic drugs; Z79.899 Other long term (current) drug therapy
CPT/HCPCS: 96365; J0878

== ENCOUNTER 2019-09-19 00:03 | Day surgery (SDC) | payer OTHER | END 2019-09-19 09:41 | disposition home or self-care (01) | LOC: ATC 00:03 | DX: T87.44 Infection of amputation stump, left lower extremity (principal); E11.40 Type 2 diabetes mellitus with diabetic neuropathy, unspecified; M86.8X7 Other osteomyelitis, ankle and foot; B95.62 Methicillin resistant Staphylococcus aureus infection as the cause of diseases classified elsewhere; J45.909 Unspecified asthma, uncomplicated; E78.5 Hyperlipidemia, unspecified; I10 Essential (primary) hypertension; Z87.891 Personal history of nicotine dependence; Z79.84 Long term (current) use of oral hypoglycemic drugs; Z79.899 Other long term (current) drug therapy; Z79.82 Long term (current) use of aspirin | CPT/HCPCS: 96365; J0878 ==

== ENCOUNTER 2019-09-23 01:48 | Day surgery (SDC) | payer OTHER | END 2019-09-23 09:54 | disposition home or self-care (01) | LOC: ATC 01:48 | DX: T87.44 Infection of amputation stump, left lower extremity (principal); M86.8X7 Other osteomyelitis, ankle and foot; B95.62 Methicillin resistant Staphylococcus aureus infection as the cause of diseases classified elsewhere; I10 Essential (primary) hypertension; E11.40 Type 2 diabetes mellitus with diabetic neuropathy, unspecified; E78.5 Hyperlipidemia, unspecified; J45.909 Unspecified asthma, uncomplicated; Z87.891 Personal history of nicotine dependence; Z79.4 Long term (current) use of insulin; Z79.899 Other long term (current) drug therapy; Z79.82 Long term (current) use of aspirin | CPT/HCPCS: 96365; J0878 ==

== ENCOUNTER 2019-09-24 00:04 | Day surgery (SDC) | payer OTHER | END 2019-09-24 09:31 | disposition home or self-care (01) | LOC: ATC 00:04 | DX: T87.44 Infection of amputation stump, left lower extremity (principal); M86.8X7 Other osteomyelitis, ankle and foot; B95.62 Methicillin resistant Staphylococcus aureus infection as the cause of diseases classified elsewhere; E11.40 Type 2 diabetes mellitus with diabetic neuropathy, unspecified; J45.909 Unspecified asthma, uncomplicated; I10 Essential (primary) hypertension; E78.5 Hyperlipidemia, unspecified; Z87.891 Personal history of nicotine dependence; Z79.84 Long term (current) use of oral hypoglycemic drugs; Z79.899 Other long term (current) drug therapy; Z79.82 Long term (current) use of aspirin | CPT/HCPCS: 96365; J0878 ==

== ENCOUNTER 2019-09-27 00:03 | Day surgery (SDC) | payer OTHER | END 2019-09-27 09:16 | disposition home or self-care (01) | LOC: ATC 00:03 | DX: T87.44 Infection of amputation stump, left lower extremity (principal); M86.8X7 Other osteomyelitis, ankle and foot; B95.62 Methicillin resistant Staphylococcus aureus infection as the cause of diseases classified elsewhere; E11.40 Type 2 diabetes mellitus with diabetic neuropathy, unspecified; J45.909 Unspecified asthma, uncomplicated; I10 Essential (primary) hypertension; E78.5 Hyperlipidemia, unspecified; Z87.891 Personal history of nicotine dependence; Z79.4 Long term (current) use of insulin; Z79.899 Other long term (current) drug therapy; Z79.82 Long term (current) use of aspirin | CPT/HCPCS: 96365; J0878 ==

== ENCOUNTER 2019-10-01 00:32 | Day surgery (SDC) | payer OTHER | END 2019-10-01 09:49 | disposition home or self-care (01) | LOC: ATC 00:32 | DX: M86.9 Osteomyelitis, unspecified (principal); I10 Essential (primary) hypertension; J45.909 Unspecified asthma, uncomplicated; E78.5 Hyperlipidemia, unspecified; E11.40 Type 2 diabetes mellitus with diabetic neuropathy, unspecified; Z87.891 Personal history of nicotine dependence; Z79.84 Long term (current) use of oral hypoglycemic drugs; Z79.899 Other long term (current) drug therapy | CPT/HCPCS: 96365; J0878 ==

== ENCOUNTER 2019-10-02 00:38 | Day surgery (SDC) | payer OTHER | END 2019-10-02 09:31 | disposition home or self-care (01) | LOC: ATC 00:38 | DX: T87.44 Infection of amputation stump, left lower extremity (principal); M86.8X6 Other osteomyelitis, lower leg; B95.62 Methicillin resistant Staphylococcus aureus infection as the cause of diseases classified elsewhere; I10 Essential (primary) hypertension; E11.40 Type 2 diabetes mellitus with diabetic neuropathy, unspecified; Z87.891 Personal history of nicotine dependence; E78.5 Hyperlipidemia, unspecified; J45.909 Unspecified asthma, uncomplicated; Z79.4 Long term (current) use of insulin; Z79.899 Other long term (current) drug therapy | CPT/HCPCS: 96365; J0878 ==

== ENCOUNTER 2019-10-03 00:04 | Day surgery (SDC) | payer OTHER | END 2019-10-03 09:14 | disposition home or self-care (01) | LOC: ATC 00:04 | DX: T87.44 Infection of amputation stump, left lower extremity (principal); M86.8X7 Other osteomyelitis, ankle and foot; B95.62 Methicillin resistant Staphylococcus aureus infection as the cause of diseases classified elsewhere; E11.40 Type 2 diabetes mellitus with diabetic neuropathy, unspecified; I10 Essential (primary) hypertension; Z79.4 Long term (current) use of insulin; Z79.82 Long term (current) use of aspirin; Z87.891 Personal history of nicotine dependence | CPT/HCPCS: 96365; J0878 ==

== ENCOUNTER 2019-10-04 01:17 | Day surgery (SDC) | payer OTHER | END 2019-10-04 09:18 | disposition home or self-care (01) | LOC: ATC 01:17 | DX: T87.44 Infection of amputation stump, left lower extremity (principal); M86.8X6 Other osteomyelitis, lower leg; B95.62 Methicillin resistant Staphylococcus aureus infection as the cause of diseases classified elsewhere; E11.40 Type 2 diabetes mellitus with diabetic neuropathy, unspecified; J45.909 Unspecified asthma, uncomplicated; I10 Essential (primary) hypertension; E78.5 Hyperlipidemia, unspecified; Z87.891 Personal history of nicotine dependence; Z79.4 Long term (current) use of insulin; Z79.899 Other long term (current) drug therapy; Z79.82 Long term (current) use of aspirin | CPT/HCPCS: 96365; J0878 ==

== ENCOUNTER 2019-10-06 00:11 | Day surgery (SDC) | payer OTHER | END 2019-10-06 09:45 | disposition home or self-care (01) | LOC: ATC 00:11 | DX: T87.44 Infection of amputation stump, left lower extremity (principal); M86.8X7 Other osteomyelitis, ankle and foot; E11.40 Type 2 diabetes mellitus with diabetic neuropathy, unspecified; B95.62 Methicillin resistant Staphylococcus aureus infection as the cause of diseases classified elsewhere; J45.909 Unspecified asthma, uncomplicated; I10 Essential (primary) hypertension; E78.5 Hyperlipidemia, unspecified; Z79.4 Long term (current) use of insulin; Z87.891 Personal history of nicotine dependence; Z79.899 Other long term (current) drug therapy; Z79.82 Long term (current) use of aspirin | CPT/HCPCS: 96365; J0878 ==

== ENCOUNTER 2019-10-08 | Day surgery (SDC) | payer OTHER | END 2019-10-08 09:27 | disposition home or self-care (01) | LOC: ATC | DX: T87.44 Infection of amputation stump, left lower extremity (principal); M86.8X7 Other osteomyelitis, ankle and foot; B95.62 Methicillin resistant Staphylococcus aureus infection as the cause of diseases classified elsewhere; E11.40 Type 2 diabetes mellitus with diabetic neuropathy, unspecified; J45.909 Unspecified asthma, uncomplicated; I10 Essential (primary) hypertension; E78.5 Hyperlipidemia, unspecified; Z79.4 Long term (current) use of insulin; Z87.891 Personal history of nicotine dependence; Z79.899 Other long term (current) drug therapy | CPT/HCPCS: 96365; J0878 ==

== ENCOUNTER 2019-10-09 00:02 | Day surgery (SDC) | payer OTHER | END 2019-10-09 09:28 | disposition home or self-care (01) | LOC: ATC 00:02 | DX: T87.44 Infection of amputation stump, left lower extremity (principal); M86.8X7 Other osteomyelitis, ankle and foot; B95.62 Methicillin resistant Staphylococcus aureus infection as the cause of diseases classified elsewhere; E11.40 Type 2 diabetes mellitus with diabetic neuropathy, unspecified; J45.909 Unspecified asthma, uncomplicated; I10 Essential (primary) hypertension; E78.5 Hyperlipidemia, unspecified; Z87.891 Personal history of nicotine dependence; Z79.4 Long term (current) use of insulin; Z79.82 Long term (current) use of aspirin; Z79.899 Other long term (current) drug therapy | CPT/HCPCS: 96365; J0878 ==

== ENCOUNTER 2019-10-11 00:50 | Day surgery (SDC) | payer OTHER | END 2019-10-11 09:34 | disposition home or self-care (01) | LOC: ATC 00:50 | DX: T87.44 Infection of amputation stump, left lower extremity (principal); M86.8X7 Other osteomyelitis, ankle and foot; B95.62 Methicillin resistant Staphylococcus aureus infection as the cause of diseases classified elsewhere; E11.40 Type 2 diabetes mellitus with diabetic neuropathy, unspecified; J45.909 Unspecified asthma, uncomplicated; I10 Essential (primary) hypertension; E78.5 Hyperlipidemia, unspecified; Z87.891 Personal history of nicotine dependence; Z79.4 Long term (current) use of insulin; Z79.899 Other long term (current) drug therapy | CPT/HCPCS: 96365; J0878 ==

== ENCOUNTER 2019-11-06 09:24 | Emergency (ER) | payer OTHER ==
[~2019-11-06] VITALS: Ht 182.9 cm; Wt 113.4 kg
[2019-11-06 10:52] LABS: Source, Urine Clean Catch
[2019-11-06 10:58] LABS: Bilirubin, Urine Neg (Neg); Blood, Urine 1+ (Neg); Glucose Qualitative, Urine 4+ (Neg); Ketones, Urine Neg (Neg); Leukocyte Esterase, Urine Neg (Neg); Nitrite, Urine Neg (Neg); Protein, Urine Neg (Neg); Specific Gravity, Urine 1.015 (1.003-1.022); Urobilinogen, Urine NORM (Normal)
[2019-11-06 11:12] LABS: Appearance, Urine Clear (Clear); Color, Urine Yellow (P-Yellow)
[2019-11-06 11:14] LABS: Bacteria Rare /hpf; Red Blood Cells, Urine 0-2 /hpf (0-2); Squamous Epithelial Cells Rare /hpf (Few); White Blood Cells, Urine 0-2 /hpf (0-5)
[2019-11-06] MEDS ORDERED: LEVFLO500 PO (11:19)
== END 2019-11-06 11:26 | disposition home or self-care (01) ==
LOC: ER 09:24
PROVIDERS: Physician Assistant
DX: N45.1 Epididymitis (principal); Z79.4 Long term (current) use of insulin; Z79.899 Other long term (current) drug therapy; E11.40 Type 2 diabetes mellitus with diabetic neuropathy, unspecified; I10 Essential (primary) hypertension; E78.5 Hyperlipidemia, unspecified; J45.909 Unspecified asthma, uncomplicated; Z87.891 Personal history of nicotine dependence
CPT/HCPCS: 76870; 81001; 96372; 99284-25; J1885

== ENCOUNTER 2019-11-22 07:10 | Day surgery (SDC) | payer OTHER | END 2019-11-22 22:39 | disposition home or self-care (01) | LOC: WOUND 07:10 | DX: S31.30XD Unspecified open wound of scrotum and testes, subsequent encounter (principal); I10 Essential (primary) hypertension; J45.909 Unspecified asthma, uncomplicated; E11.40 Type 2 diabetes mellitus with diabetic neuropathy, unspecified; Z87.891 Personal history of nicotine dependence; Z79.4 Long term (current) use of insulin; Z79.899 Other long term (current) drug therapy; Z79.82 Long term (current) use of aspirin | CPT/HCPCS: G0463 ==

== ENCOUNTER 2020-03-31 11:31 | Emergency (ER) | payer OTHER ==
[~2020-03-31] VITALS: Ht 182.9 cm; Wt 117.9 kg
[~2020-03-31 11:31] MED LIST changes: +IBUP800 PO; +Norco 5-325 Ta1 EACH PO
[2020-03-31] MEDS ORDERED: DICL75ER PO (14:16)
[2020-03-31] MEDS ORDERED: Monodox100 MG PO (14:18)
[2020-05-31] MEDS ORDERED: SULFAMETHOXAZO1 EAC1 PO (12:03)
[2020-05-31] MEDS ORDERED: Cleocin HCl300 MG PO (12:38)
== END 2020-03-31 14:38 | disposition home or self-care (01) ==
LOC: ER 11:31
DX: M79.672 Pain in left foot (principal); E11.9 Type 2 diabetes mellitus without complications; I10 Essential (primary) hypertension; E78.5 Hyperlipidemia, unspecified; J45.909 Unspecified asthma, uncomplicated; Z79.4 Long term (current) use of insulin; Z79.82 Long term (current) use of aspirin; Z89.422 Acquired absence of other left toe(s); Z79.899 Other long term (current) drug therapy; Z87.891 Personal history of nicotine dependence
CPT/HCPCS: 73630; 99283-25

== ENCOUNTER 2020-06-01 20:02 | Inpatient (IN) | payer OTHER ==
[~2020-06-01] VITALS: Ht 182.9 cm; Wt 99.5 kg
[~2020-06-01 20:02] MED LIST changes: +Cleocin HCl300 MG PO; +DICL75ER PO; +Monodox100 MG PO; +SULFAMETHOXAZO1 EAC1 PO
[2020-06-01 20:55] LABS: BASOPHILS ABSOLUTE AUTO 0.02 K/mm3 (0.00-0.23); BASOPHILS PERCENT AUTO 0 % (0-2); EOSINOPHILS ABSOLUTE AUTO 0.12 K/mm3 (0.00-0.68); EOSINOPHILS PERCENT AUTO 1 % (0-6); Hematocrit 42.7 % (37.0-53.0); Hemoglobin 14.4 g/dL (13.5-17.5); IMMATURE GRAN ABSOLUTE AUTO 0.03 K/mm3 (0.00-0.10); IMMATURE GRAN PERCENT AUTO 0 % (0-1); LYMPHOCYTES ABSOLUTE AUTO 3.32 K/mm3 (0.84-5.20); LYMPHOCYTES PERCENT AUTO 24 % (21-46); MONOCYTES PERCENT AUTO 7 % (4-13); Mean Corpuscular HGB 29.6 pg (26.0-34.0); Mean Corpuscular HGB Conc 33.7 g/dL (31.5-36.5); Mean Corpuscular Volume 88 fL (80-100); Mean Platelet Volume 11.1 fL (9.1-12.4); NEUTROPHILS ABSOLUTE AUTO 9.41 K/mm3 (1.96-9.15); NEUTROPHILS PERCENT AUTO 68 % (41-73); Platelet Count 236 K/mm3 (150-400); RDW Standard Deviation 38.7 fL (35.1-46.3); Red Blood Cell Count 4.87 M/mm3 (4.30-5.90)
[2020-06-01 21:04] LABS: Base Excess Venous 4.5 mmol/L; Bicarbonate Venous 27.4 mmol/L (24.0-30.0); PCO2 Venous 50.2 mmHg (38-42); PO2 Venous 91.4 mmHg (38-42); pH Blood Venous 7.38 (7.34-7.37)
[2020-06-01 21:10] LABS: International Normalized Ratio 1.03
[2020-06-01 21:21] LABS: Alanine Aminotransfer (ALT/SGP 18 U/L (12-78); Albumin, Blood 3.5 g/dL (3.4-5.0); Albumin/Globulin Ratio 0.9 (0.8-1.8); Alk Phos 87 U/L (50-136); Anion Gap 5 mmol/L (6-16); Aspartate Aminotrans (AST/SGOT 10 U/L (12-37); Bilirubin, Total 0.5 mg/dL (0.1-1.0); Blood Urea Nitrogen 22 mg/dL (8-24); Bun/Creatinine Ratio 28.7 (12.0-20.0); CO2, Blood 31 mmol/L (21-32); Calcium, Blood 9.2 mg/dL (8.5-10.1); Chloride, Blood 97 mmol/L (98-108); Creatinine, Blood 0.77 mg/dL (0.60-1.20); Globulin, Blood 4.1 g/dL (2.2-4.0); Glomerular Filtration Rate >60 (60-); Glucose, Blood 434 mg/dL (70-99); Potassium, Blood 4.5 mmol/L (3.5-5.5); Sodium, Blood 133 mmol/L (136-145); Total Protein, Blood 7.6 g/dL (6.4-8.2)
[2020-06-01] MEDS ORDERED: AMARYL4 MG (22:32)
[2020-06-01 22:54] LABS: Source, Urine Clean Catch
[2020-06-01 22:56] LABS: Bilirubin, Urine Neg (Neg); Blood, Urine 3+ (Neg); Glucose Qualitative, Urine 4+ (Neg); Ketones, Urine Neg (Neg); Leukocyte Esterase, Urine Neg (Neg); Nitrite, Urine Neg (Neg); Protein, Urine 2+ (Neg); Specific Gravity, Urine 1.015 (1.003-1.022); Urobilinogen, Urine NORM (Normal)
[2020-06-01 23:01] LABS: Appearance, Urine Clear (Clear); Color, Urine Yellow (P-Yellow)
[2020-06-01 23:08] LABS: Bacteria Not Seen /hpf; Squamous Epithelial Cells Rare /hpf (Few); White Blood Cells, Urine Not Seen /hpf (0-5)
--- NOTE | 2020-06-02 12:45 | NUR ---
Assumed care Patient arrived from ER to room 324 via w/c. A/Ox4, independent. Follow commands and calls for needs appropriately. Bed in lowest position. Call light in reach. Report received that patient had lunch in ER, but needs insulin coverage d/t no humalog in ER. WCTM.
[2020-06-02] MEDS ORDERED: BASAGLAR K100 UNIT/8 SC (14:39)
[2020-06-02] MEDS ORDERED: CYCL10 PO (14:40)
--- NOTE | 2020-06-02 16:32 | NUR ---
EMA GUARDADO WITH MEALS PATIENT WAS DIAPHORETIC AND CLAMMY, FEELING WEAK AND "JUST NOT RIGHT." PATIENT REQUEST THIS RN TO CHECK BLOOD GLUCOSE. BG FOUND TO BE 45. PATIENT ALERT AND ORIENTED, CARB/CRACKERS, JUICE, AND PROTEIN GIVEN. RECHECKED BLOOD SUGAR TWICE 15 MINUTES APART. IT WAS 62 AND THEN 118. PATIENT REPORTS FEELING BETTER. FAN AND ICE WATER PROVIDED. DISCUSSED WITH Anastasia CASTILLO. TO D/C NICOLASALOG c MEALS. WILL KEEP CORRECTION SCALE COVERAGE.
--- NOTE | 2020-06-02 17:03 | NUR ---
Shift Summary A/Ox4, pleasant and cooperative with care. Up independently. L facial swelling with scant ss drainage. Medicated for 8/10 pain to L cheek with good effect. Patient had one episode of hypoglycemia, orders received and EMAR updated (see previous note). Blood glucose currently stable at this time. Breathing equal and unlabored. Able to make needs known. WCTM.
--- NOTE | 2020-06-03 05:18 | NUR ---
SHIFT SUMMARY A&O, IND IN ROOM, PLEASANT & COOPERATIVE W/CARE, MEDICATED 1X FOR PAIN & IND USES WARM COMPRESSES FOR PAIN RELIEF, SHOWERED, SLEPT INTERMITTENTLY T/O SHIFT, NO ACUTE CHANGES, ABLE TO MAKE NEDS KNOWN, BEDRESTING AT THIS TIME, WILL CONT TO MONITOR UNTIL REPORT GIVEN TO DAY RN.
[2020-06-03 08:25] LABS: BASOPHILS ABSOLUTE AUTO 0.02 K/mm3 (0.00-0.23); BASOPHILS PERCENT AUTO 0 % (0-2); EOSINOPHILS PERCENT AUTO 2 % (0-6); Hematocrit 39.6 % (37.0-53.0); Hemoglobin 13.3 g/dL (13.5-17.5); IMMATURE GRAN ABSOLUTE AUTO 0.03 K/mm3 (0.00-0.10); IMMATURE GRAN PERCENT AUTO 0 % (0-1); LYMPHOCYTES ABSOLUTE AUTO 2.91 K/mm3 (0.84-5.20); LYMPHOCYTES PERCENT AUTO 30 % (21-46); MONOCYTES ABSOLUTE AUTO 0.69 K/mm3 (0.16-1.47); MONOCYTES PERCENT AUTO 7 % (4-13); Mean Corpuscular HGB 29.3 pg (26.0-34.0); Mean Corpuscular HGB Conc 33.6 g/dL (31.5-36.5); Mean Corpuscular Volume 87 fL (80-100); Mean Platelet Volume 10.9 fL (9.1-12.4); NEUTROPHILS ABSOLUTE AUTO 5.87 K/mm3 (1.96-9.15); NEUTROPHILS PERCENT AUTO 60 % (41-73); Platelet Count 210 K/mm3 (150-400); RDW Coefficient Variation 11.9 % (11.7-14.2); RDW Standard Deviation 38.4 fL (35.1-46.3); Red Blood Cell Count 4.54 M/mm3 (4.30-5.90); White Blood Cell Count 9.72 K/mm3 (4.00-11.30)
[2020-06-03 08:39] LABS: Anion Gap 3 mmol/L (6-16); Blood Urea Nitrogen 12 mg/dL (8-24); Bun/Creatinine Ratio 21.9 (12.0-20.0); CO2, Blood 28 mmol/L (21-32); Calcium, Blood 8.6 mg/dL (8.5-10.1); Chloride, Blood 108 mmol/L (98-108); Creatinine, Blood 0.55 mg/dL (0.60-1.20); Glomerular Filtration Rate >60 (60-); Glucose, Blood 101 mg/dL (70-99); Potassium, Blood 3.9 mmol/L (3.5-5.5); Sodium, Blood 139 mmol/L (136-145)
[2020-06-03 08:40] LABS: Vancomycin, Trough 11.4 ug/mL (5.0-10.0)
--- NOTE | 2020-06-03 11:04 | NUR ---
LOLA HELD MORNING DOSE OF SEMGLEE D/T BLOOD SUGAR OF 100. V.O. FROM DR. BRIZUELA TO D/C. DR. BRIZUELA WILL REORDER BASED ON FUTURE BLOOD SUGARS.
--- NOTE | 2020-06-03 18:22 | NUR ---
Shift Summary A/Ox4, pleasant and cooperative with care. Medicated for pain x 1 with good effect. Patient has been squeezing and pressing on L cheek to self-drain the abscess, draining moderate blood tinge purulent drainage. Patient reports that after doing this, swelling has decreased. This afternoon, ADDRESSER reported room smelling like marijuana. Patient states to this RN that friend dropped off cannibus cookies and patient just finished eating them. Informed patient that recreational drugs are not allowed while hospitalized and if this continued, visiting rights may be forfeited. Patient verbalized understanding. on line csr notified. Ambulated in hallway and up to bathroom independently. No acute changes. WCTM.
--- NOTE | 2020-06-04 04:26 | NUR ---
SHIFT SUMMARY NO ACUTE CHANGES THIS SHIFT, MEDICATED 1X FOR L CHEEK PAIN, NO OTHER C/O ANY KIND, SLEPT T/O THE NIGHT & SLEEPING AT THIS TIME, CALL LIGHT IN REACH, WILL CONT TO MONITOR UNTIL REPORT GIVEN TO DAY RN.
--- NOTE | 2020-06-04 17:47 | NUR ---
SHIFT SUMMARY PT IS A&O AND INDEPENDENT IN ROOM. PT ABLE TO MAKE NEEDS KNOWN. PT COMPLAINED OF MILD PAIN IN FACE BUT DECLINED PAIN MEDICAITON AT THIS TIME. PT CURENTLY IN ROOM EATING DINNER WITH CALL LIGHT W/IN REACH. NO ACUTE CHANGES.
--- NOTE | 2020-06-05 04:03 | NUR ---
SHIFT SUMMARY ADMITTED FOR CELLULITIS/ABSCESS OF FACE. FULL CODE. CONTACT PRECAUTIONS: MRSA IN WOUND. IV ANTIBIOTICS ARE SCHEDULED. HOPEFUL FOR DC TODAY, WOUND CLINIC OUTPT APPOINTMENTS NEEDED. PT WILL REQUIRE A NOTE FROM HOSPITALIST FOR WORK EXCUSE. MEDICATED FOR PAIN 1 TIME THIS SHIFT. NO NEW CONCERNS
[2020-06-05 08:39] LABS: Creatinine, Blood 0.64 mg/dL (0.60-1.20); Vancomycin, Trough 11.7 ug/mL (5.0-10.0)
[2020-06-05] MEDS ORDERED: VISBIOME 112.51 EACH PO (11:33)
[2020-06-05] MEDS ORDERED: CLIN150 (11:35)
[2020-06-05] MEDS ORDERED: MUPIROCIN1 G1 TOP (11:36)
--- NOTE | 2020-06-05 12:15 | NUR ---
DISCHARGE SUMMARY PT AxOx4. PLEASANT AND COOPERATIVE WITH CARE. INDEPENDENT IN THE ROOM. RECEIVED LAST IV ABX THIS AM. DC'ING TO HOME TODAY. DISCHARGE INSTRUCTIONS DISCUSSED WITH PATIENT INCLUDING DC MEDICATIONS AND FOLLOW UP APPOINTMENTS. PT VERBALIZES UNDERSTANDING. DENIES ANY FURTHER QUESTIONS AT THIS TIME. VITALS REVIEWED. DOCTORS NOTE SIGNED AND GIVEN TO PATIENT WITH RETURN TO WORK DETAILS. PT SAFELY ESCORTED OUT VIA WC WITH DIRECTOR EMPLOYEE COMMUNICATIONS AND FRIEND.
== END 2020-06-05 12:23 | disposition home or self-care (01) | DRG 872 ==
LOC: ER 20:02 → MEDS 06-02 01:42 → ERHOLD 06-02 01:42 → MEDS 06-02 12:49
PROVIDERS: Emergency Medicine; Internal Medicine; Physician Assistant; ADMIT Internal Medicine
DX: A41.02 Sepsis due to Methicillin resistant Staphylococcus aureus (principal); L03.211 Cellulitis of face; L02.01 Cutaneous abscess of face; E78.5 Hyperlipidemia, unspecified; I10 Essential (primary) hypertension; Z79.899 Other long term (current) drug therapy; Z79.82 Long term (current) use of aspirin; Z79.4 Long term (current) use of insulin; J45.909 Unspecified asthma, uncomplicated; Z89.412 Acquired absence of left great toe; Z89.422 Acquired absence of other left toe(s); Z87.891 Personal history of nicotine dependence; E11.40 Type 2 diabetes mellitus with diabetic neuropathy, unspecified; E11.649 Type 2 diabetes mellitus with hypoglycemia without coma
CPT/HCPCS: 10060; 36415; 70487; 80048; 80053; 80202; 81001; 82010; 82565; 82803; 82947; 83605; 85025; 85610; 85730; 87040; 87070; 87075; 87077; 87086; 87186; 87205; 93005; 93010; 96365; 99283-25; 99285-25; A9270; J1650; J3010; J3370; J7030; J7050; J7120; Q9967

== ENCOUNTER 2021-01-18 13:58 | Inpatient (IN) | payer OTHER ==
[~2021-01-18] VITALS: Ht 182.9 cm; Wt 92.7 kg
[~2021-01-18 13:58] MED LIST changes: +AMARYL4 MG PO; +BASAGLAR K100 UNIT/8 SC; +CLIN150; +MUPIROCIN1 G1 TOP; +VISBIOME 112.51 EACH PO
[2021-01-18] MEDS ORDERED: BASAGLAR K100 UNIT/6 SC (14:42)
[2021-01-18 15:02] LABS: BASOPHILS ABSOLUTE AUTO 0.03 K/mm3 (0.00-0.23); BASOPHILS PERCENT AUTO 0 % (0-2); EOSINOPHILS ABSOLUTE AUTO 0.04 K/mm3 (0.00-0.68); EOSINOPHILS PERCENT AUTO 0 % (0-6); Hematocrit 45.9 % (37.0-53.0); Hemoglobin 15.5 g/dL (13.5-17.5); IMMATURE GRAN ABSOLUTE AUTO 0.07 K/mm3 (0.00-0.10); IMMATURE GRAN PERCENT AUTO 0 % (0-1); LYMPHOCYTES ABSOLUTE AUTO 1.36 K/mm3 (0.84-5.20); LYMPHOCYTES PERCENT AUTO 7 % (21-46); MONOCYTES PERCENT AUTO 7 % (4-13); Mean Corpuscular HGB 29.5 pg (26.0-34.0); Mean Corpuscular HGB Conc 33.8 g/dL (31.5-36.5); Mean Corpuscular Volume 87 fL (80-100); NEUTROPHILS ABSOLUTE AUTO 17.58 K/mm3 (1.96-9.15); NEUTROPHILS PERCENT AUTO 86 % (41-73); Platelet Count 229 K/mm3 (150-400); RDW Coefficient Variation 11.9 % (11.7-14.2); RDW Standard Deviation 38.1 fL (35.1-46.3); Red Blood Cell Count 5.26 M/mm3 (4.30-5.90); White Blood Cell Count 20.48 K/mm3 (4.00-11.30)
[2021-01-18 15:37] LABS: Alanine Aminotransfer (ALT/SGP 15 U/L (12-78); Albumin, Blood 2.5 g/dL (3.4-5.0); Albumin/Globulin Ratio 0.5 (0.8-1.8); Alk Phos 107 U/L (50-136); Anion Gap 18 mmol/L (6-16); Aspartate Aminotrans (AST/SGOT 15 U/L (12-37); Bilirubin, Total 1.1 mg/dL (0.1-1.0); Blood Urea Nitrogen 4 mg/dL (8-24); CO2, Blood 12 mmol/L (21-32); Calcium, Blood <5.0 mg/dL (8.5-10.1); Chloride, Blood 100 mmol/L (98-108); Globulin, Blood 5.2 g/dL (2.2-4.0); Glomerular Filtration Rate >60 (60-); Glucose, Blood 74 mg/dL (70-99); Sodium, Blood 130 mmol/L (136-145); Total Protein, Blood 7.7 g/dL (6.4-8.2)
[2021-01-18 16:15] LABS: Base Excess Venous 2.1 mmol/L; Bicarbonate Venous 26.1 mmol/L (24.0-30.0); PCO2 Venous 39.6 mmHg (38-42); PO2 Venous 67.2 mmHg (38-42); pH Blood Venous 7.43 (7.34-7.37)
[2021-01-18 18:28] LABS: Alanine Aminotransfer (ALT/SGP 13 U/L (12-78); Albumin, Blood 3.1 g/dL (3.4-5.0); Albumin/Globulin Ratio 0.8 (0.8-1.8); Alk Phos 89 U/L (50-136); Anion Gap 9 mmol/L (6-16); Aspartate Aminotrans (AST/SGOT 5 U/L (12-37); Blood Urea Nitrogen 10 mg/dL (8-24); Bun/Creatinine Ratio 14.8 (12.0-20.0); CO2, Blood 24 mmol/L (21-32); Chloride, Blood 103 mmol/L (98-108); Creatinine, Blood 0.67 mg/dL (0.60-1.20); Globulin, Blood 4.1 g/dL (2.2-4.0); Glomerular Filtration Rate >60 (60-); Glucose, Blood 299 mg/dL (70-99); Potassium, Blood 3.9 mmol/L (3.5-5.5); Sodium, Blood 136 mmol/L (136-145); Total Protein, Blood 7.2 g/dL (6.4-8.2)
[2021-01-19 05:11] LABS: BASOPHILS ABSOLUTE AUTO 0.05 K/mm3 (0.00-0.23); BASOPHILS PERCENT AUTO 0 % (0-2); EOSINOPHILS ABSOLUTE AUTO 0.11 K/mm3 (0.00-0.68); EOSINOPHILS PERCENT AUTO 1 % (0-6); Hematocrit 43.1 % (37.0-53.0); Hemoglobin 14.6 g/dL (13.5-17.5); IMMATURE GRAN ABSOLUTE AUTO 0.15 K/mm3 (0.00-0.10); IMMATURE GRAN PERCENT AUTO 1 % (0-1); LYMPHOCYTES ABSOLUTE AUTO 1.45 K/mm3 (0.84-5.20); LYMPHOCYTES PERCENT AUTO 7 % (21-46); MONOCYTES ABSOLUTE AUTO 1.57 K/mm3 (0.16-1.47); MONOCYTES PERCENT AUTO 7 % (4-13); Mean Corpuscular HGB 29.1 pg (26.0-34.0); Mean Corpuscular HGB Conc 33.9 g/dL (31.5-36.5); Mean Corpuscular Volume 86 fL (80-100); Mean Platelet Volume 10.6 fL (9.1-12.4); NEUTROPHILS ABSOLUTE AUTO 18.11 K/mm3 (1.96-9.15); NEUTROPHILS PERCENT AUTO 85 % (41-73); Platelet Count 203 K/mm3 (150-400); RDW Standard Deviation 37.5 fL (35.1-46.3); Red Blood Cell Count 5.02 M/mm3 (4.30-5.90); White Blood Cell Count 21.44 K/mm3 (4.00-11.30)
[2021-01-19 05:22] LABS: Alanine Aminotransfer (ALT/SGP 12 U/L (12-78); Albumin, Blood 2.9 g/dL (3.4-5.0); Albumin/Globulin Ratio 0.7 (0.8-1.8); Alk Phos 86 U/L (50-136); Anion Gap 6 mmol/L (6-16); Aspartate Aminotrans (AST/SGOT 4 U/L (12-37); Bilirubin, Total 0.8 mg/dL (0.1-1.0); Blood Urea Nitrogen 12 mg/dL (8-24); Bun/Creatinine Ratio 19.4 (12.0-20.0); CO2, Blood 26 mmol/L (21-32); Calcium, Blood 8.8 mg/dL (8.5-10.1); Chloride, Blood 103 mmol/L (98-108); Creatinine, Blood 0.62 mg/dL (0.60-1.20); Globulin, Blood 4.3 g/dL (2.2-4.0); Glomerular Filtration Rate >60 (60-); Glucose, Blood 221 mg/dL (70-99); Potassium, Blood 3.8 mmol/L (3.5-5.5); Sodium, Blood 135 mmol/L (136-145); Total Protein, Blood 7.2 g/dL (6.4-8.2)
--- NOTE | 2021-01-19 06:25 | NUR ---
SHIFT SUMMARY S/P R INGUINAL ABSCESS, A/O X4, VSS, TOLERATING PO, PAIN MANAGED PER EMAR, INDEPENDENT IN ROOM. NO ACUTE EVENTS THIS SHIFT. CALL LIGHT IN REACH, WILL CTM AND REPORT TO DAY RN.
--- NOTE | 2021-01-19 16:25 | NUR ---
SHIFT SUMMARY PATIENT MEDICATED FOR PAIN X1. PATIENT DENIES NAUSEA AND SHORTNESS OF BREATH. PATIENT IS INDEPENDENT IN ROOM. PATIENT IS EATING AND DRINKING WELL. PATIENT HAD A SCROTUM ULTRASOUND THIS AFTERNOON. ORDER FOR MEDICAL RECORDS REQUEST FROM [facility] FOR PREVIOUS ABCESS SENT TO [facility]. PATIENT IS PLEASANT AND COOPERATIVE WITH CARE.
[2021-01-19 18:24] LABS: SARS-Cov-2 (COVID-19) PCR, MMC NEGATIVE (NEGATIVE)
[2021-01-19 20:31] LABS: Vancomycin, Trough 12.6 ug/mL (5.0-10.0)
[2021-01-20 05:29] LABS: Hematocrit 43.1 % (37.0-53.0); Hemoglobin 14.4 g/dL (13.5-17.5); Mean Corpuscular HGB Conc 33.4 g/dL (31.5-36.5); Mean Corpuscular Volume 87 fL (80-100); Mean Platelet Volume 10.8 fL (9.1-12.4); Platelet Count 209 K/mm3 (150-400); RDW Coefficient Variation 11.9 % (11.7-14.2); RDW Standard Deviation 37.7 fL (35.1-46.3); Red Blood Cell Count 4.97 M/mm3 (4.30-5.90); White Blood Cell Count 19.11 K/mm3 (4.00-11.30)
--- NOTE | 2021-01-20 05:42 | NUR ---
SHIFT SUMMARY PATIENT ALERT AND ORIENTED. MEDICATED PER EMAR FOR PAIN. NO COMPLAINTS OF SHORTNESS OF BREATH. NO ACUTE ISSUES NOTED OVERNIGHT. CALL LIGHT WITHIN REACH. REPORT GIVEN TO ONCOMING RN.
[2021-01-20 06:49] LABS: Alanine Aminotransfer (ALT/SGP 11 U/L (12-78); Albumin, Blood 2.6 g/dL (3.4-5.0); Albumin/Globulin Ratio 0.6 (0.8-1.8); Alk Phos 94 U/L (50-136); Anion Gap 3 mmol/L (6-16); Aspartate Aminotrans (AST/SGOT 11 U/L (12-37); Bilirubin, Total 0.6 mg/dL (0.1-1.0); Blood Urea Nitrogen 15 mg/dL (8-24); Bun/Creatinine Ratio 18.4 (12.0-20.0); CO2, Blood 30 mmol/L (21-32); Calcium, Blood 9.1 mg/dL (8.5-10.1); Chloride, Blood 103 mmol/L (98-108); Creatinine, Blood 0.82 mg/dL (0.60-1.20); Globulin, Blood 4.3 g/dL (2.2-4.0); Glomerular Filtration Rate >60 (60-); Glucose, Blood 116 mg/dL (70-99); Potassium, Blood 3.4 mmol/L (3.5-5.5); Sodium, Blood 136 mmol/L (136-145); Total Protein, Blood 6.9 g/dL (6.4-8.2)
--- NOTE | 2021-01-20 18:00 | NUR ---
SHIFT SUMMARY PATIENT DENIES PAIN, NAUSEA, AND SHORTNESS OF BREATH. PATIENT NPO SINCE MIDNIGHT DUE TO PROCEDURE TODAY. PATIENT CBG THIS AFTERNOON WAS 90, D5W/KCL STARTED. PATIENT TAKEN TO DAY SURGERY AT 1515. PATIENT BACK FROM SURGERY AT 1710. PATIENT DENIES PAIN. POST-OP VITALS OBTIANED. PATIENT EATING DINNER. CBG WHEN HE GOT BACK WAS 87. PATIENT IS INDEPENDENT IN ROOM. GAUZE OVER INCISION SITE. PATIENT IS PLEASANT AND COOPERATIVE WITH CARE.
[2021-01-20 21:04] LABS: Vancomycin, Trough 19.6 ug/mL (5.0-10.0)
[2021-01-21 05:11] LABS: BASOPHILS ABSOLUTE AUTO 0.03 K/mm3 (0.00-0.23); BASOPHILS PERCENT AUTO 0 % (0-2); EOSINOPHILS ABSOLUTE AUTO 0.03 K/mm3 (0.00-0.68); EOSINOPHILS PERCENT AUTO 0 % (0-6); IMMATURE GRAN ABSOLUTE AUTO 0.08 K/mm3 (0.00-0.10); IMMATURE GRAN PERCENT AUTO 1 % (0-1); LYMPHOCYTES ABSOLUTE AUTO 1.82 K/mm3 (0.84-5.20); LYMPHOCYTES PERCENT AUTO 11 % (21-46); MONOCYTES ABSOLUTE AUTO 1.31 K/mm3 (0.16-1.47); MONOCYTES PERCENT AUTO 8 % (4-13); Mean Corpuscular HGB 28.7 pg (26.0-34.0); Mean Corpuscular HGB Conc 33.3 g/dL (31.5-36.5); Mean Corpuscular Volume 86 fL (80-100); Mean Platelet Volume 10.9 fL (9.1-12.4); NEUTROPHILS ABSOLUTE AUTO 13.49 K/mm3 (1.96-9.15); NEUTROPHILS PERCENT AUTO 80 % (41-73); Platelet Count 233 K/mm3 (150-400); RDW Coefficient Variation 11.9 % (11.7-14.2); RDW Standard Deviation 37.5 fL (35.1-46.3); Red Blood Cell Count 4.53 M/mm3 (4.30-5.90); White Blood Cell Count 16.76 K/mm3 (4.00-11.30)
[2021-01-21 05:41] LABS: Albumin, Blood 2.3 g/dL (3.4-5.0); Albumin/Globulin Ratio 0.6 (0.8-1.8); Bilirubin, Total 0.4 mg/dL (0.1-1.0); Bun/Creatinine Ratio 18.4 (12.0-20.0); Calcium, Blood 8.5 mg/dL (8.5-10.1); Creatinine, Blood 1.41 mg/dL (0.60-1.20); Globulin, Blood 3.9 g/dL (2.2-4.0); Potassium, Blood 3.8 mmol/L (3.5-5.5); Total Protein, Blood 6.2 g/dL (6.4-8.2)
[2021-01-21 11:13] LABS: Vancomycin, Trough 21.3 ug/mL (5.0-10.0)
--- NOTE | 2021-01-21 16:04 | NUR ---
SHIFT SUMMARY PATIENT IS ALERT AND ORIENTED X4, AND COOPERATIVE WITH CARE. PATIENT IS INDEPENDENT IN ROOM, AND ON RA. PATIENT HAS BEEN RECEIVING VANCOMYCIN THIS SHIFT. PATIENT IS GETTING NORMAL SALINE AT 150 MLS/HR. WAITING ON CULTURE AND SENSITIVITY TO COME BACK TO HELP DETERMINE DISCHARGE PLANS. 18G POWERGLIDE WAS PLACED IN THE CHERYLE THIS SHIFT. NO ACUTE CHANGES THIS SHIFT, VITAL SIGNS STABLE. THIS NURSE WILL CONTINUE TO CARE FOR THE PATIENT UNTIL REPORT IS GIVEN TO THE ONCOMING NURSE.
--- NOTE | 2021-01-21 22:35 | NUR ---
AWAKE EARLIER, IVF INFUSED. REQUESTED AND RECEIVED ANALGESIC FOR GROIN PAIN. CALL LIGHT IN REACH. ISOLATION PRECAUTIONS MAINTAINED.
--- NOTE | 2021-01-22 03:05 | NUR ---
TELEGRAPH EDITOR SUMMARY HAD I AND D OF SCROTUM YESTERDAY, NOTE SLIGHT RED DRAINAGE FROM DRAIN. RECEIVED ANALGESIC X 1, MED EFFECTIVE PER PT STATEMENT. IVF AND ANTIBIOTICS ADMINISTERED ORDERED - SEE MAR FOR DETAILS. HAS BEEN RESTING QUIETLY AT INTERVALS. ISOLATION PRECAUTIONS MAINTAINED. UP AD LANDON. AGREED TO USE CALL LIGHT IF NEEDS ARRISE. CALL LIGHT IN REACH
[2021-01-22 08:47] LABS: Hematocrit 37.4 % (37.0-53.0); Hemoglobin 12.5 g/dL (13.5-17.5); Mean Corpuscular HGB 29.3 pg (26.0-34.0); Mean Corpuscular HGB Conc 33.4 g/dL (31.5-36.5); Mean Corpuscular Volume 88 fL (80-100); Mean Platelet Volume 10.6 fL (9.1-12.4); Platelet Count 230 K/mm3 (150-400); RDW Standard Deviation 38.4 fL (35.1-46.3); Red Blood Cell Count 4.27 M/mm3 (4.30-5.90); White Blood Cell Count 10.28 K/mm3 (4.00-11.30)
[2021-01-22 09:03] LABS: Albumin, Blood 2.4 g/dL (3.4-5.0); Albumin/Globulin Ratio 0.6 (0.8-1.8); Bilirubin, Total 0.3 mg/dL (0.1-1.0); Bun/Creatinine Ratio 16.9 (12.0-20.0); Calcium, Blood 8.6 mg/dL (8.5-10.1); Creatinine, Blood 1.42 mg/dL (0.60-1.20); Globulin, Blood 3.8 g/dL (2.2-4.0); Potassium, Blood 3.3 mmol/L (3.5-5.5); Total Protein, Blood 6.2 g/dL (6.4-8.2)
--- NOTE | 2021-01-22 14:11 | NUR ---
DISCHARGE NOTE: A&O, PLEASANT WITH CARES. IV VANCO GIVEN PER ORDERS. POTASSIUM REPLACED IV PER ORDERS. PT WAS HYPOGLYCEMIC IN AM AT 63, OJ GIVEN AND BLOOD SUGARS HAVE BEEN WNL. SCROTUM SITE IS SWOLLEN WITH DRAIN IN PLACE. PT REPORTS MINIMAL TENDERNESS, NO PRN GIVEN PER PT REQUEST. UP AB LANDON IN ROOM. DISCHARGE INFORMATION REVIEWED WITH PT. POWERGLIDE WAS REMOVED.
[2021-01-22] MEDS ORDERED: DOCU100 PO (14:39)
[2021-01-22] MEDS ORDERED: LACT PO (14:40)
[2021-01-22] MEDS ORDERED: IBUP400 PO (14:43)
[2021-01-22] MEDS ORDERED: SULFAMETHOXAZO1 EAC1 PO (14:45)
--- NOTE | 2021-01-22 14:59 | NUR ---
Pt tries to monitor how much CHO he eats at home, but he reports that he wants to improve has ability to do so. Discussed recommended CHO serving sizes. Discussed what foods have no/little impact on blood sugars. Encouraged pt to choose whole grains over refined grains. Pt loves sourdough bread and plans to keep an eye out for whole grain varieties. Reviewed where to find CHO content on nutrition labels. Pt's dad has DM and pt reported that he plans to use his dad as a model for how to follow these diet recommendations.
== END 2021-01-22 15:55 | disposition home or self-care (01) | DRG 872 ==
LOC: ER 13:58 → MEDS 16:51
PROVIDERS: Family Medicine; Physician Assistant; Student in an Organized Health Care Education/Training Program; Surgery; ADMIT Internal Medicine
PROC: 3E02340 Introduction of Influenza Vaccine into Muscle, Percutaneous Approach (ICD-10-PCS; 2021-01-18)
PROC: 0W9M0ZZ Drainage of Male Perineum, Open Approach (ICD-10-PCS; principal; 2021-01-20 13:00)
DX: A41.02 Sepsis due to Methicillin resistant Staphylococcus aureus (principal); N17.9 Acute kidney failure, unspecified; L02.215 Cutaneous abscess of perineum; L03.315 Cellulitis of perineum; Z23 Encounter for immunization; I10 Essential (primary) hypertension; E78.5 Hyperlipidemia, unspecified; N49.2 Inflammatory disorders of scrotum; E11.40 Type 2 diabetes mellitus with diabetic neuropathy, unspecified; Z20.822 Contact with and (suspected) exposure to COVID-19; J45.909 Unspecified asthma, uncomplicated; Z89.432 Acquired absence of left foot; Z79.899 Other long term (current) drug therapy; Z79.82 Long term (current) use of aspirin; Z79.4 Long term (current) use of insulin; F41.9 Anxiety disorder, unspecified; Z87.891 Personal history of nicotine dependence
CPT/HCPCS: 36415; 74177; 76857; 80053; 80202; 82330; 82803; 82947; 83605; 83735; 83970; 84100; 84443; 85025; 85027; 87040; 87070; 87075; 87077; 87147; 87186; 87205; 90686; 93005; 93010; 96365; 96366; 99285-25; A9270; C1751; J0610; J1100; J1650; J1815; J1885; J2250; J2405; J2543; J2704; J3010; J3370; J3480; J7030; J7050; J7120; Q9967; U0004

== ENCOUNTER → 2021-05-30 | Outpatient (CLI) | payer OTHER ==
[~2021-05-30] MED LIST changes: +BASAGLAR K100 UNIT/6 SC; +IBUP400 PO; +LACT PO
[2021-05-30 13:23] LABS: BASOPHILS ABSOLUTE AUTO 0.02 K/mm3 (0.00-0.23); BASOPHILS PERCENT AUTO 0 % (0-2); EOSINOPHILS ABSOLUTE AUTO 0.09 K/mm3 (0.00-0.68); EOSINOPHILS PERCENT AUTO 1 % (0-6); Hematocrit 44.2 % (37.0-53.0); IMMATURE GRAN ABSOLUTE AUTO 0.03 K/mm3 (0.00-0.10); IMMATURE GRAN PERCENT AUTO 0 % (0-1); LYMPHOCYTES ABSOLUTE AUTO 2.01 K/mm3 (0.84-5.20); LYMPHOCYTES PERCENT AUTO 23 % (21-46); MONOCYTES ABSOLUTE AUTO 0.58 K/mm3 (0.16-1.47); MONOCYTES PERCENT AUTO 7 % (4-13); Mean Corpuscular HGB 29.3 pg (26.0-34.0); Mean Corpuscular HGB Conc 33.9 g/dL (31.5-36.5); Mean Corpuscular Volume 86 fL (80-100); Mean Platelet Volume 10.9 fL (9.1-12.4); NEUTROPHILS ABSOLUTE AUTO 5.99 K/mm3 (1.96-9.15); NEUTROPHILS PERCENT AUTO 69 % (41-73); Platelet Count 202 K/mm3 (150-400); RDW Coefficient Variation 12.1 % (11.7-14.2); RDW Standard Deviation 38.3 fL (35.1-46.3); Red Blood Cell Count 5.12 M/mm3 (4.30-5.90); White Blood Cell Count 8.72 K/mm3 (4.00-11.30)
[2021-05-30 13:41] LABS: Anion Gap 7 mmol/L (6-16); CO2, Blood 28 mmol/L (21-32); Calcium, Blood 9.5 mg/dL (8.5-10.1); Chloride, Blood 100 mmol/L (98-108); Creatinine, Blood 0.96 mg/dL (0.60-1.20); Glomerular Filtration Rate >60 (60-); Glucose, Blood 409 mg/dL (70-99); Potassium, Blood 4.6 mmol/L (3.5-5.5); Sodium, Blood 135 mmol/L (136-145)
[2021-05-30 14:33] LABS: Blood Urea Nitrogen 12 mg/dL (8-24); Bun/Creatinine Ratio 12.5 (12.0-20.0)
== END | disposition home or self-care (01) ==
LOC: LAB SHORT 13:19 → LAB 13:19
PROVIDERS: Family Medicine
DX: R07.89 Other chest pain (principal)
CPT/HCPCS: 80048; 84484; 85025; 85379

== ENCOUNTER 2021-07-16 12:23 | Emergency (ER) | payer OTHER ==
[~2021-07-16] VITALS: Ht 182.9 cm; Wt 90.7 kg
[2021-07-16 14:05] LABS: BASOPHILS ABSOLUTE AUTO 0.02 K/mm3 (0.00-0.23); BASOPHILS PERCENT AUTO 0 % (0-2); EOSINOPHILS ABSOLUTE AUTO 0.13 K/mm3 (0.00-0.68); EOSINOPHILS PERCENT AUTO 1 % (0-6); Hematocrit 44.3 % (37.0-53.0); IMMATURE GRAN ABSOLUTE AUTO 0.03 K/mm3 (0.00-0.10); IMMATURE GRAN PERCENT AUTO 0 % (0-1); LYMPHOCYTES ABSOLUTE AUTO 2.96 K/mm3 (0.84-5.20); LYMPHOCYTES PERCENT AUTO 28 % (21-46); MONOCYTES PERCENT AUTO 6 % (4-13); Mean Corpuscular HGB 29.1 pg (26.0-34.0); Mean Corpuscular HGB Conc 33.9 g/dL (31.5-36.5); Mean Corpuscular Volume 86 fL (80-100); Mean Platelet Volume 11.2 fL (9.1-12.4); NEUTROPHILS ABSOLUTE AUTO 6.94 K/mm3 (1.96-9.15); NEUTROPHILS PERCENT AUTO 65 % (41-73); Platelet Count 216 K/mm3 (150-400); RDW Coefficient Variation 11.7 % (11.7-14.2); RDW Standard Deviation 37.2 fL (35.1-46.3); Red Blood Cell Count 5.15 M/mm3 (4.30-5.90); White Blood Cell Count 10.68 K/mm3 (4.00-11.30)
[2021-07-16 14:28] LABS: Alanine Aminotransfer (ALT/SGP 22 U/L (12-78); Albumin, Blood 3.8 g/dL (3.4-5.0); Alk Phos 74 U/L (50-136); Anion Gap 6 mmol/L (6-16); Aspartate Aminotrans (AST/SGOT 10 U/L (12-37); Bilirubin, Total 0.6 mg/dL (0.1-1.0); Blood Urea Nitrogen 18 mg/dL (8-24); Bun/Creatinine Ratio 28.4 (12.0-20.0); CO2, Blood 28 mmol/L (21-32); Calcium, Blood 9.7 mg/dL (8.5-10.1); Chloride, Blood 103 mmol/L (98-108); Creatinine, Blood 0.63 mg/dL (0.60-1.20); Globulin, Blood 3.8 g/dL (2.2-4.0); Glomerular Filtration Rate >60 (60-); Glucose, Blood 304 mg/dL (70-99); Potassium, Blood 4.5 mmol/L (3.5-5.5); Sodium, Blood 137 mmol/L (136-145); Total Protein, Blood 7.6 g/dL (6.4-8.2)
== END 2021-07-16 16:34 | disposition home or self-care (01) ==
LOC: ER 12:23
PROVIDERS: Physician Assistant
DX: K21.9 Gastro-esophageal reflux disease without esophagitis (principal); S90.121A Contusion of right lesser toe(s) without damage to nail, initial encounter; N49.2 Inflammatory disorders of scrotum; E11.9 Type 2 diabetes mellitus without complications; I10 Essential (primary) hypertension; E78.5 Hyperlipidemia, unspecified; X58.XXXA Exposure to other specified factors, initial encounter; Z79.4 Long term (current) use of insulin; Z79.899 Other long term (current) drug therapy; Z87.891 Personal history of nicotine dependence
CPT/HCPCS: 36415; 80053; 83690; 84484; 85025; A9270; J2405; J7030

== ENCOUNTER 2021-08-02 08:26 | Inpatient (IN) | payer OTHER ==
[~2021-08-02] VITALS: Ht 182.9 cm; Wt 92.5 kg
[2021-08-02 09:36] LABS: BASOPHILS ABSOLUTE AUTO 0.03 K/mm3 (0.00-0.23); BASOPHILS PERCENT AUTO 0 % (0-2); EOSINOPHILS ABSOLUTE AUTO 0.01 K/mm3 (0.00-0.68); EOSINOPHILS PERCENT AUTO 0 % (0-6); Hematocrit 40.7 % (37.0-53.0); IMMATURE GRAN ABSOLUTE AUTO 0.09 K/mm3 (0.00-0.10); IMMATURE GRAN PERCENT AUTO 0 % (0-1); LYMPHOCYTES ABSOLUTE AUTO 1.25 K/mm3 (0.84-5.20); LYMPHOCYTES PERCENT AUTO 6 % (21-46); MONOCYTES ABSOLUTE AUTO 1.38 K/mm3 (0.16-1.47); MONOCYTES PERCENT AUTO 7 % (4-13); Mean Corpuscular HGB 29.4 pg (26.0-34.0); Mean Corpuscular HGB Conc 34.4 g/dL (31.5-36.5); Mean Corpuscular Volume 86 fL (80-100); Mean Platelet Volume 11.3 fL (9.1-12.4); NEUTROPHILS ABSOLUTE AUTO 18.37 K/mm3 (1.96-9.15); NEUTROPHILS PERCENT AUTO 87 % (41-73); Platelet Count 172 K/mm3 (150-400); RDW Coefficient Variation 11.6 % (11.7-14.2); RDW Standard Deviation 36.4 fL (35.1-46.3); Red Blood Cell Count 4.76 M/mm3 (4.30-5.90); White Blood Cell Count 21.13 K/mm3 (4.00-11.30)
[2021-08-02 09:58] LABS: Albumin, Blood 3.4 g/dL (3.4-5.0); Albumin/Globulin Ratio 0.9 (0.8-1.8); Bilirubin, Total 1.1 mg/dL (0.1-1.0); Bun/Creatinine Ratio 23.5 (12.0-20.0); C-REACTIVE PROTEIN, EXT RANGE 16.9 mg/dL (0.000-0.300); Calcium, Blood 9.6 mg/dL (8.5-10.1); Creatinine, Blood 0.72 mg/dL (0.60-1.20); Globulin, Blood 3.9 g/dL (2.2-4.0); Potassium, Blood 4.3 mmol/L (3.5-5.5); Total Protein, Blood 7.3 g/dL (6.4-8.2)
--- NOTE | 2021-08-02 15:08 | NUR ---
PT BELONGINGS TUCKED UNDER BED
--- NOTE | 2021-08-02 15:13 | NUR ---
PT VSS, ALERT AND ORIENTED, PT WAITING FOR ROOM ASSINGMENT ON FLOOR
--- NOTE | 2021-08-02 17:40 | NUR ---
DAY SHIFT SUMMARY 40 YR OLD MALE PT ADMITTED FROM SURGICAL WITH PERIANAL I AND D WITH MRSA. PRIMROSE DRAIN IN PLACE WITH ABD PAD AND MESH UNDERWEAR IN PLACE. PT USING URINAL AT BEDSIDE. ON RA. CALL LIGHT IN PLACE. ORIENTED TO ROOM, SURROUNDING AREA, AND CALL LIGHT. ABLE TO CALL APPROPRIATELY. ADMISSION COMPLETED. MED REQ REVIEWED WITH PT.
[2021-08-03 05:34] LABS: BASOPHILS ABSOLUTE AUTO 0.04 K/mm3 (0.00-0.23); BASOPHILS PERCENT AUTO 0 % (0-2); EOSINOPHILS ABSOLUTE AUTO 0.08 K/mm3 (0.00-0.68); EOSINOPHILS PERCENT AUTO 0 % (0-6); Hematocrit 38.6 % (37.0-53.0); IMMATURE GRAN ABSOLUTE AUTO 0.07 K/mm3 (0.00-0.10); IMMATURE GRAN PERCENT AUTO 0 % (0-1); LYMPHOCYTES ABSOLUTE AUTO 1.92 K/mm3 (0.84-5.20); LYMPHOCYTES PERCENT AUTO 10 % (21-46); MONOCYTES ABSOLUTE AUTO 1.17 K/mm3 (0.16-1.47); MONOCYTES PERCENT AUTO 6 % (4-13); Mean Corpuscular HGB 29.2 pg (26.0-34.0); Mean Corpuscular HGB Conc 33.7 g/dL (31.5-36.5); Mean Corpuscular Volume 87 fL (80-100); Mean Platelet Volume 11.5 fL (9.1-12.4); NEUTROPHILS ABSOLUTE AUTO 15.69 K/mm3 (1.96-9.15); NEUTROPHILS PERCENT AUTO 83 % (41-73); Platelet Count 171 K/mm3 (150-400); RDW Coefficient Variation 11.6 % (11.7-14.2); RDW Standard Deviation 37.3 fL (35.1-46.3); Red Blood Cell Count 4.45 M/mm3 (4.30-5.90); White Blood Cell Count 18.97 K/mm3 (4.00-11.30)
[2021-08-03 05:57] LABS: Albumin, Blood 2.9 g/dL (3.4-5.0); Albumin/Globulin Ratio 0.8 (0.8-1.8); Bilirubin, Total 0.7 mg/dL (0.1-1.0); Bun/Creatinine Ratio 24.6 (12.0-20.0); Calcium, Blood 9.1 mg/dL (8.5-10.1); Creatinine, Blood 0.73 mg/dL (0.60-1.20); Globulin, Blood 3.7 g/dL (2.2-4.0); Magnesium, Blood 2.1 mg/dL (1.6-2.4); Potassium, Blood 3.6 mmol/L (3.5-5.5); Total Protein, Blood 6.6 g/dL (6.4-8.2)
[2021-08-03 14:16] LABS: Vancomycin, Trough 13.6 ug/mL (5.0-10.0)
--- NOTE | 2021-08-03 17:14 | NUR ---
SUMMARY NO ACUTE CHANGES T/O SHIFT. ADMINISTERED IV ABX PER ORDERS. MEDICATED PT ONCE DURING SHIFT FOR PERIRECTAL PAIN. INDEPENDENT IN ROOM. SHOWERED THIS SHIFT. CALL LIGHT IN REACH.
[2021-08-04 05:44] LABS: BASOPHILS ABSOLUTE AUTO 0.03 K/mm3 (0.00-0.23); BASOPHILS PERCENT AUTO 0 % (0-2); EOSINOPHILS ABSOLUTE AUTO 0.12 K/mm3 (0.00-0.68); EOSINOPHILS PERCENT AUTO 1 % (0-6); Hematocrit 36.3 % (37.0-53.0); Hemoglobin 12.1 g/dL (13.5-17.5); IMMATURE GRAN ABSOLUTE AUTO 0.04 K/mm3 (0.00-0.10); IMMATURE GRAN PERCENT AUTO 0 % (0-1); LYMPHOCYTES ABSOLUTE AUTO 1.53 K/mm3 (0.84-5.20); LYMPHOCYTES PERCENT AUTO 13 % (21-46); MONOCYTES ABSOLUTE AUTO 0.85 K/mm3 (0.16-1.47); MONOCYTES PERCENT AUTO 7 % (4-13); Mean Corpuscular HGB 29.2 pg (26.0-34.0); Mean Corpuscular HGB Conc 33.3 g/dL (31.5-36.5); Mean Corpuscular Volume 88 fL (80-100); Mean Platelet Volume 11.1 fL (9.1-12.4); NEUTROPHILS ABSOLUTE AUTO 9.48 K/mm3 (1.96-9.15); NEUTROPHILS PERCENT AUTO 79 % (41-73); Platelet Count 198 K/mm3 (150-400); RDW Coefficient Variation 11.7 % (11.7-14.2); RDW Standard Deviation 37.7 fL (35.1-46.3); Red Blood Cell Count 4.15 M/mm3 (4.30-5.90); White Blood Cell Count 12.05 K/mm3 (4.00-11.30)
[2021-08-04 06:03] LABS: Bun/Creatinine Ratio 23.4 (12.0-20.0); Calcium, Blood 8.8 mg/dL (8.5-10.1); Creatinine, Blood 0.73 mg/dL (0.60-1.20); Potassium, Blood 3.5 mmol/L (3.5-5.5)
--- NOTE | 2021-08-04 08:14 | NUR ---
SHIFT SUMMARY: PATIENT IS REPORTING PAIN LEVEL IS WORSE TODAY. THE LEFT INNER BUTTOCKS HAS A HAS A HARDENED AREA ALONG SIDE NYDIA DRAIN. MODERATE SEROSANQUINES FLUID WAS OBSERVED ON VICKY PADS. PATIENT CHANGES THESE PADS INDEPENDANLTY IN THE BATHRROM, USING VICKY BOTTLE TO CLEANS. NORCO 2 TABS WAS GIVEN X2 AND WAS EFFECTIVE FOR PAIN CONTROL. BLOOD GLUCOSE AT HS WAS 111. 70 UNITS OF GLARGINE WAS ORDERED. SAFETY PIN ASSEMBLING MACHINE OPERATOR NOTIED DR FAJARDO, NEW ORDER TO GIVE GLARGINE 50 UNITS AND HOLD THE 70 UNITS PREVIOUSLY ORDERED AND SPOT CHECK DURING THE NIGHT. SPOT CHECK WAS 92, SNACK WAS GIVEN, RECHECK WAS 142.
--- NOTE | 2021-08-04 18:10 | NUR ---
INSULIN ADJUSTED A COUPLE TIMES TODAY. LONG ACTING IS NOW 30 UNITS, DOWN FROM 40 UNITS WHICH WAS DOWN FROM THE BEGINNING DOSE OF 70 UNITS. DURING DINNER, ALL REGULAR INSULIN WAS HELD bs WAS 100. PATIENT HAS RECIEVED ANTOBIOTICS IV- VANCO AND CLINDAMYCIN. HE SEEMS TO BE TOLERATING THESE WELL. HE IS ALERT AND OREINTATED. THE WOUND ON BOTTOM IS DRAINING. PATIENT IS CHANGEING THE PADS AND MESH HIMSELF. SKIN AROUND THE DRAIN SITE APPEARED TO BE HEALING THIS AM WHEN ASSESSED.
[2021-08-05 05:49] LABS: BASOPHILS ABSOLUTE AUTO 0.02 K/mm3 (0.00-0.23); BASOPHILS PERCENT AUTO 0 % (0-2); EOSINOPHILS ABSOLUTE AUTO 0.18 K/mm3 (0.00-0.68); EOSINOPHILS PERCENT AUTO 2 % (0-6); Hematocrit 38.6 % (37.0-53.0); Hemoglobin 12.7 g/dL (13.5-17.5); IMMATURE GRAN ABSOLUTE AUTO 0.02 K/mm3 (0.00-0.10); IMMATURE GRAN PERCENT AUTO 0 % (0-1); LYMPHOCYTES PERCENT AUTO 31 % (21-46); MONOCYTES ABSOLUTE AUTO 0.72 K/mm3 (0.16-1.47); MONOCYTES PERCENT AUTO 9 % (4-13); Mean Corpuscular HGB 28.9 pg (26.0-34.0); Mean Corpuscular HGB Conc 32.9 g/dL (31.5-36.5); Mean Corpuscular Volume 88 fL (80-100); Mean Platelet Volume 10.9 fL (9.1-12.4); NEUTROPHILS ABSOLUTE AUTO 4.86 K/mm3 (1.96-9.15); NEUTROPHILS PERCENT AUTO 58 % (41-73); Platelet Count 239 K/mm3 (150-400); RDW Coefficient Variation 11.6 % (11.7-14.2); RDW Standard Deviation 37.5 fL (35.1-46.3)
[2021-08-05 06:08] LABS: Bun/Creatinine Ratio 21.8 (12.0-20.0); Calcium, Blood 8.6 mg/dL (8.5-10.1); Creatinine, Blood 0.69 mg/dL (0.60-1.20); Potassium, Blood 3.7 mmol/L (3.5-5.5)
--- NOTE | 2021-08-05 06:37 | NUR ---
SHIFT SUMMARY: ON AM LABS PATIENT IS FOUND TO HAVE A GLUCOSE OF 77. PATIENT HAD ASKED FOR A SNACK OF PEANUT BUTTER AND GRAM CRACKERS. FINGER STICK WAS 125, A CONTAINER OF MILK WAS GIVEN. PATIENT SAID HE DID FEEL HE WAS LOW AT THE TIME. MODERATE DRAINAGE FROM PEMROSE, PATIENT CLEANSES AREA AND CHANGES VICKY PAD PRN.
[2021-08-05 13:31] LABS: Vancomycin, Trough 14.5 ug/mL (5.0-10.0)
--- NOTE | 2021-08-05 17:51 | NUR ---
PATIENT IS AGAIN STRUGGELING WITH BLOOD SUGAR REGULATION. DOSE WAS ADJUSTED DOWN TO 20 UNITS LONG ACTING THIS AM. HIS BS AT DINNER TIME WAS 85. APPLE JUICE WAS PROVIDED, SLIDING SCALE AND SCHEDULED DOSE OF REGULAR HELD. PATIENT STARTED A NEW ABX (ZOSYN) AND CLINDAMYCIN WAS DC. HE HAS NO COMPLAINTS OTHER THAN THE INTERMITTENT VERTIGO WHICH IS COMING ON AT RANDOM TIMES FOR SECONDS AND THEN LEAVING QUICKLY IT COMES ON. PATIENT IS CHANGEING MESH UNDERGARMENT AND PADS THAT ARE CATCHING THE DRAINIAGE FROM THE I&D. THE WOUND IN THE VICKY FOLD IS DRAINING A MOORE COLOR- SMALL AMOUNT. PADS ARE CHANGED ABOUT ONCE EVERY 4-6 HOURS. PAIN IS MINIMAL AND ONLY OCCURS WHEN PATIENT IS SITTING ON THE WOUND. REPOSITIONING ALLEVIATES BUTLER.
[2021-08-06 05:43] LABS: Glucose, Blood 119 mg/dL (70-99)
--- NOTE | 2021-08-06 05:56 | NUR ---
SHIFT SUMMARY A/OX4, IND IN ROOM. PINROSE DRAIN TO RECTAL AREA, PT CHANGES PADS PRN. C/O PAIN TO AFFECTED AREA, MEDICATED PER EMAR. VSS, NO ACUTE CHANGES AT THIS TIME. BED IN LOWEST POSITION WITH CALL LIGHT IN REACH. WILL CONTINUE TO MONITOR AND REPORT TO ONCOMING RN.
[2021-08-06 06:56] LABS: BASOPHILS ABSOLUTE AUTO 0.04 K/mm3 (0.00-0.23); BASOPHILS PERCENT AUTO 1 % (0-2); EOSINOPHILS ABSOLUTE AUTO 0.23 K/mm3 (0.00-0.68); EOSINOPHILS PERCENT AUTO 3 % (0-6); Hematocrit 39.2 % (37.0-53.0); Hemoglobin 12.9 g/dL (13.5-17.5); IMMATURE GRAN ABSOLUTE AUTO 0.02 K/mm3 (0.00-0.10); IMMATURE GRAN PERCENT AUTO 0 % (0-1); LYMPHOCYTES ABSOLUTE AUTO 2.29 K/mm3 (0.84-5.20); LYMPHOCYTES PERCENT AUTO 30 % (21-46); MONOCYTES ABSOLUTE AUTO 0.67 K/mm3 (0.16-1.47); MONOCYTES PERCENT AUTO 9 % (4-13); Mean Corpuscular HGB Conc 32.9 g/dL (31.5-36.5); Mean Corpuscular Volume 88 fL (80-100); Mean Platelet Volume 10.8 fL (9.1-12.4); NEUTROPHILS PERCENT AUTO 58 % (41-73); Platelet Count 253 K/mm3 (150-400); RDW Coefficient Variation 11.6 % (11.7-14.2); RDW Standard Deviation 37.2 fL (35.1-46.3); Red Blood Cell Count 4.45 M/mm3 (4.30-5.90); White Blood Cell Count 7.75 K/mm3 (4.00-11.30)
[2021-08-06] MEDS ORDERED: Norco 5-325 Ta1 EACH PO (13:19)
[2021-08-06] MEDS ORDERED: SULTRIDS PO (13:20)
[2021-08-06] MEDS ORDERED: VISBIOME 112.51 EACH PO (13:20)
--- NOTE | 2021-08-06 14:03 | NUR ---
DISCHARGE POD 3 I&D. DRESSING CHANGED, SMALL AMOUNT OF BROWN DRAINAGE ON PAD. PT IND IN MANAGEMENT OF PAD. PT HAS PLANS TO FOLLOW UP FOR REMOVAL OF DRAIN WITH DR. WINSTON. PT DENIES FURTHER NEEDS OR QUESTIONS AT THIS TIME. TOLERATING PO WELL. NO NAUSEA OR PAIN. IV REMOVED PRIOR TO DISCHARGE.
== END 2021-08-06 14:14 | disposition home or self-care (01) | DRG 872 ==
LOC: ER 08:26 → MEDS 15:27
PROVIDERS: Nurse Practitioner Acute Care; Physician Assistant; Student in an Organized Health Care Education/Training Program; ADMIT Internal Medicine
DX: A41.9 Sepsis, unspecified organism (principal); L02.31 Cutaneous abscess of buttock; L03.317 Cellulitis of buttock; L02.215 Cutaneous abscess of perineum; E11.65 Type 2 diabetes mellitus with hyperglycemia; E11.40 Type 2 diabetes mellitus with diabetic neuropathy, unspecified; I10 Essential (primary) hypertension; F41.9 Anxiety disorder, unspecified; E78.5 Hyperlipidemia, unspecified; F32.A Depression, unspecified; D72.829 Elevated white blood cell count, unspecified; J45.909 Unspecified asthma, uncomplicated; Z86.14 Personal history of Methicillin resistant Staphylococcus aureus infection; Z89.422 Acquired absence of other left toe(s); Z79.82 Long term (current) use of aspirin; Z79.84 Long term (current) use of oral hypoglycemic drugs; Z79.4 Long term (current) use of insulin; Z79.899 Other long term (current) drug therapy; Z87.891 Personal history of nicotine dependence; Z98.890 Other specified postprocedural states
CPT/HCPCS: 36415; 72193; 80048; 80053; 80202; 82947; 83605; 83735; 85025; 86140; 87040; 96374-59; 99285-25; A9270; J0692; J1815; J1885; J2250; J2405; J2543; J2704; J2765; J3010; J3370; J7040; J7060; J7120; Q9967

== ENCOUNTER 2021-12-26 09:15 | Day surgery (SDC) | payer OTHER ==
[~2021-12-26] VITALS: Ht 182.9 cm; Wt 85.0 kg
[~2021-12-26 09:15] MED LIST changes: +METO10 PO; +ONDA4ODT MM; +SULTRIDS PO
[2021-12-26] MEDS ORDERED: TOBRADEX ST EYE5 M1 (09:38)
--- NOTE | 2021-12-26 10:02 | NUR ---
12/26/21 1002 JAYLON PARKER BY FACILITY DIRECTOR TO CONT. RN SED FOR PT CONCERNING A1C AND CHEMBG CURRENT:360 OUTSIDE FACILITY STANDARD RESTRICTIONS.
--- NOTE | 2021-12-26 11:36 | NUR ---
12/26/21 1136 JAYLON PARKER JOSE SET FOR PT W PCP Dec AT 1040 OK PER PT REGRD PT CHEMBG CONTROL PER FACILITY DIRECTOR . ALSO FLUIDS TO COMPLETE PRIOR TO DC.
== END 2021-12-26 11:35 | disposition home or self-care (01) ==
LOC: ORSCSDS 09:15
PROVIDERS: Student in an Organized Health Care Education/Training Program
PROC: 0DB98ZX Excision of Duodenum, Via Natural or Artificial Opening Endoscopic, Diagnostic (ICD-10-PCS; principal; 2021-12-26 10:45)
PROC: 0DB68ZX Excision of Stomach, Via Natural or Artificial Opening Endoscopic, Diagnostic (ICD-10-PCS; principal; 2021-12-26 10:45)
PROC: 0DB48ZX Excision of Esophagogastric Junction, Via Natural or Artificial Opening Endoscopic, Diagnostic (ICD-10-PCS; principal; 2021-12-26 10:45)
PROC: 0DB58ZX Excision of Esophagus, Via Natural or Artificial Opening Endoscopic, Diagnostic (ICD-10-PCS; principal; 2021-12-26 10:45)
DX: R13.10 Dysphagia, unspecified (principal); K21.9 Gastro-esophageal reflux disease without esophagitis; B96.81 Helicobacter pylori [H. pylori] as the cause of diseases classified elsewhere; K29.80 Duodenitis without bleeding; K29.70 Gastritis, unspecified, without bleeding; E78.5 Hyperlipidemia, unspecified; I10 Essential (primary) hypertension; E11.9 Type 2 diabetes mellitus without complications; F41.9 Anxiety disorder, unspecified; F32.A Depression, unspecified; J45.909 Unspecified asthma, uncomplicated; Z87.891 Personal history of nicotine dependence; Z79.82 Long term (current) use of aspirin; Z79.899 Other long term (current) drug therapy
CPT/HCPCS: 82947; 88305; 88341; 88342; J2704; J7120

== ENCOUNTER 2022-02-12 10:20 | Emergency (ER) | payer OTHER ==
[~2022-02-12] VITALS: Ht 182.9 cm; Wt 79.4 kg
[~2022-02-12 10:20] MED LIST changes: +TOBRADEX ST EYE5 M1
[2022-02-12 12:03] LABS: BASOPHILS ABSOLUTE AUTO 0.02 K/mm3 (0.00-0.23); BASOPHILS PERCENT AUTO 0 % (0-2); EOSINOPHILS ABSOLUTE AUTO 0.04 K/mm3 (0.00-0.68); EOSINOPHILS PERCENT AUTO 0 % (0-6); Hematocrit 46.1 % (37.0-53.0); Hemoglobin 16.5 g/dL (13.5-17.5); IMMATURE GRAN ABSOLUTE AUTO 0.04 K/mm3 (0.00-0.10); IMMATURE GRAN PERCENT AUTO 0 % (0-1); LYMPHOCYTES ABSOLUTE AUTO 2.19 K/mm3 (0.84-5.20); LYMPHOCYTES PERCENT AUTO 16 % (21-46); MONOCYTES ABSOLUTE AUTO 0.89 K/mm3 (0.16-1.47); MONOCYTES PERCENT AUTO 6 % (4-13); Mean Corpuscular HGB 29.4 pg (26.0-34.0); Mean Corpuscular HGB Conc 35.8 g/dL (31.5-36.5); Mean Corpuscular Volume 82 fL (80-100); NEUTROPHILS PERCENT AUTO 77 % (41-73); Platelet Count 220 K/mm3 (150-400); RDW Coefficient Variation 11.8 % (11.7-14.2); RDW Standard Deviation 35.5 fL (35.1-46.3); Red Blood Cell Count 5.62 M/mm3 (4.30-5.90); White Blood Cell Count 13.98 K/mm3 (4.00-11.30)
[2022-02-12 12:19] LABS: Albumin, Blood 3.3 g/dL (3.4-5.0); Bilirubin, Total 1.2 mg/dL (0.1-1.0); Bun/Creatinine Ratio 33.3 (12.0-20.0); Calcium, Blood 9.1 mg/dL (8.5-10.1); Creatinine, Blood 0.57 mg/dL (0.60-1.20); Globulin, Blood 3.4 g/dL (2.2-4.0); Potassium, Blood 4.2 mmol/L (3.5-5.5); Total Protein, Blood 6.7 g/dL (6.4-8.2)
[2022-02-12] MEDS ORDERED: Roxicodone5 MG PO (12:41)
[2022-02-12] MEDS ORDERED: METRONIDAZOLE PO (12:41)
[2022-02-12] MEDS ORDERED: [UNRECOGNIZED DRUG - OTHER] PO (12:41)
[2022-02-12] MEDS ORDERED: Vibramycin100 MG PO (12:41)
[2022-02-12] MEDS ORDERED: ONDA4ODT MM (12:41)
[2022-02-12] MEDS ORDERED: GLYDO6 M2 PO (12:41)
== END 2022-02-12 14:05 | disposition home or self-care (01) ==
LOC: ER 10:20
PROVIDERS: Emergency Medicine
DX: L05.91 Pilonidal cyst without abscess (principal); K29.70 Gastritis, unspecified, without bleeding; B96.81 Helicobacter pylori [H. pylori] as the cause of diseases classified elsewhere; E11.65 Type 2 diabetes mellitus with hyperglycemia; J45.909 Unspecified asthma, uncomplicated; I10 Essential (primary) hypertension; E78.5 Hyperlipidemia, unspecified; Z79.899 Other long term (current) drug therapy; Z79.82 Long term (current) use of aspirin; Z79.4 Long term (current) use of insulin; Z87.891 Personal history of nicotine dependence
CPT/HCPCS: 36415; 80053; 82947; 85025; A9270; C9113; J1815; J7030

== ENCOUNTER 2022-02-15 00:31 | Emergency (ER) | payer OTHER ==
[~2022-02-15] VITALS: Ht 182.9 cm; Wt 84.8 kg
[~2022-02-15 00:31] MED LIST changes: +GLYDO6 M2 PO; +METRONIDAZOLE PO; +Roxicodone5 MG PO; +Vibramycin100 MG PO; +[UNRECOGNIZED DRUG - OTHER] PO
[2022-02-15 03:48] LABS: BASOPHILS ABSOLUTE AUTO 0.04 K/mm3 (0.00-0.23); BASOPHILS PERCENT AUTO 0 % (0-2); EOSINOPHILS ABSOLUTE AUTO 0.25 K/mm3 (0.00-0.68); EOSINOPHILS PERCENT AUTO 2 % (0-6); Hematocrit 41.1 % (37.0-53.0); Hemoglobin 14.4 g/dL (13.5-17.5); IMMATURE GRAN ABSOLUTE AUTO 0.03 K/mm3 (0.00-0.10); IMMATURE GRAN PERCENT AUTO 0 % (0-1); LYMPHOCYTES ABSOLUTE AUTO 3.21 K/mm3 (0.84-5.20); LYMPHOCYTES PERCENT AUTO 22 % (21-46); MONOCYTES ABSOLUTE AUTO 0.92 K/mm3 (0.16-1.47); MONOCYTES PERCENT AUTO 6 % (4-13); Mean Corpuscular HGB 29.1 pg (26.0-34.0); Mean Corpuscular Volume 83 fL (80-100); Mean Platelet Volume 11.2 fL (9.1-12.4); NEUTROPHILS ABSOLUTE AUTO 9.94 K/mm3 (1.96-9.15); NEUTROPHILS PERCENT AUTO 69 % (41-73); Platelet Count 246 K/mm3 (150-400); RDW Coefficient Variation 12.1 % (11.7-14.2); RDW Standard Deviation 36.6 fL (35.1-46.3); Red Blood Cell Count 4.94 M/mm3 (4.30-5.90); White Blood Cell Count 14.39 K/mm3 (4.00-11.30)
[2022-02-15 04:02] LABS: Bun/Creatinine Ratio 18.2 (12.0-20.0); Calcium, Blood 8.8 mg/dL (8.5-10.1); Creatinine, Blood 0.66 mg/dL (0.60-1.20); Potassium, Blood 3.7 mmol/L (3.5-5.5)
[2022-02-15] MEDS ORDERED: SULTRIDS PO (06:28)
== END 2022-02-15 07:31 | disposition home or self-care (01) ==
LOC: ER 00:31
PROVIDERS: Student in an Organized Health Care Education/Training Program
DX: L05.01 Pilonidal cyst with abscess (principal); D72.829 Elevated white blood cell count, unspecified; E11.9 Type 2 diabetes mellitus without complications; J45.909 Unspecified asthma, uncomplicated; I10 Essential (primary) hypertension; E78.5 Hyperlipidemia, unspecified; Z79.899 Other long term (current) drug therapy; Z79.82 Long term (current) use of aspirin; Z79.4 Long term (current) use of insulin; Z87.891 Personal history of nicotine dependence
CPT/HCPCS: 36415; 80048; 82947; 83605; 85025; 87070; 87075; 87147; 87205; J1885; J2405; J3370; J7030; J7050

== ENCOUNTER 2022-02-19 01:46 | Day surgery (SDC) | payer OTHER | END 2022-02-19 23:05 | disposition home or self-care (01) | LOC: WOUND 01:46 | DX: L05.01 Pilonidal cyst with abscess (principal); E78.5 Hyperlipidemia, unspecified; J45.909 Unspecified asthma, uncomplicated; I10 Essential (primary) hypertension; F17.210 Nicotine dependence, cigarettes, uncomplicated | CPT/HCPCS: G0463 ==

== ENCOUNTER 2022-02-21 01:58 | Day surgery (SDC) | payer OTHER | END 2022-02-21 22:59 | disposition home or self-care (01) | LOC: WOUND 01:58 | DX: L05.01 Pilonidal cyst with abscess (principal); E11.9 Type 2 diabetes mellitus without complications; I10 Essential (primary) hypertension | CPT/HCPCS: G0463 ==

== ENCOUNTER 2022-02-24 01:12 | Day surgery (SDC) | payer OTHER | END 2022-02-24 23:25 | disposition home or self-care (01) | LOC: WOUND 01:12 | DX: L05.01 Pilonidal cyst with abscess (principal); E11.9 Type 2 diabetes mellitus without complications; I10 Essential (primary) hypertension | CPT/HCPCS: G0463 ==

== ENCOUNTER 2022-02-26 06:05 | Day surgery (SDC) | payer OTHER | END 2022-02-26 23:06 | disposition home or self-care (01) | LOC: WOUND 06:05 | DX: L05.01 Pilonidal cyst with abscess (principal); E11.9 Type 2 diabetes mellitus without complications; I10 Essential (primary) hypertension; J45.909 Unspecified asthma, uncomplicated; F17.210 Nicotine dependence, cigarettes, uncomplicated; Z86.14 Personal history of Methicillin resistant Staphylococcus aureus infection | CPT/HCPCS: A9270; G0463 ==

== ENCOUNTER 2022-03-05 01:49 | Day surgery (SDC) | payer OTHER | END 2022-03-05 22:56 | disposition home or self-care (01) | LOC: WOUND 01:49 | DX: L05.01 Pilonidal cyst with abscess (principal); E11.9 Type 2 diabetes mellitus without complications; I10 Essential (primary) hypertension; E78.5 Hyperlipidemia, unspecified; J45.909 Unspecified asthma, uncomplicated; F17.210 Nicotine dependence, cigarettes, uncomplicated | CPT/HCPCS: G0463 ==

== ENCOUNTER → 2022-05-05 | Outpatient (CLI) | payer OTHER ==
[2022-05-05 15:25] LABS: Campylobacter Sp Not Detected (NOT DETECT)
[2022-05-05 15:26] LABS: Adenovirus F 40/41 Not Detected (NOT DETECT); Astrovirus Not Detected (NOT DETECT); Cryptosporidium Not Detected (NOT DETECT); Cyclospora Cayetanensis Not Detected (NOT DETECT); E. Coli O157 Not Detected (NOT DETECT); Entamoeba Histolytica Not Detected (NOT DETECT); Enteroaggregative E. coli-EAEC Not Detected (NOT DETECT); Enteropathogenic E. coli-EPEC Not Detected (NOT DETECT); Enterotoxigenic E. coli-ETEC Not Detected (NOT DETECT); Giardia Lamblia Not Detected (NOT DETECT); Norovirus GI/GII Not Detected (NOT DETECT); Plesiomonas Shigelloides Not Detected (NOT DETECT); Rotavirus A Not Detected (NOT DETECT); Salmonella Sp Not Detected (NOT DETECT); Sapovirus Not Detected (NOT DETECT); Shiga Toxin-prod E. coli-STEC Not Detected (NOT DETECT); Shigella/Enteroin E. coli-EIEC Not Detected (NOT DETECT); Vibrio Cholerae Not Detected (NOT DETECT); Vibrio Sp Not Detected (NOT DETECT); Yersinia Enterocolitica Not Detected (NOT DETECT)
== END | disposition home or self-care (01) ==
LOC: LAB SHORT 12:42
PROVIDERS: Family Medicine
DX: R19.7 Diarrhea, unspecified (principal)
CPT/HCPCS: 87507

== ENCOUNTER → 2022-05-17 | Outpatient (CLI) | payer OTHER | END | disposition home or self-care (01) | LOC: LAB SHORT 08:45 | DX: R19.7 Diarrhea, unspecified (principal) | CPT/HCPCS: 87338 ==

== ENCOUNTER → 2022-08-06 | Outpatient (CLI) | payer OTHER | LOC: LAB 15:02 → LAB SHORT 15:02 | DX: E11.65 Type 2 diabetes mellitus with hyperglycemia (principal); G99.0 Autonomic neuropathy in diseases classified elsewhere; Z79.4 Long term (current) use of insulin | CPT/HCPCS: 82043 ==

== ENCOUNTER 2023-01-12 14:56 | Emergency (ER) | payer OTHER ==
[~2023-01-12] VITALS: Ht 182.9 cm; Wt 89.8 kg
[2023-01-12 15:18] VITALS: BP 128/92
[2023-01-12 15:42] LABS: BASOPHILS ABSOLUTE AUTO 0.05 K/mm3 (0.00-0.23); BASOPHILS PERCENT AUTO 0 % (0-2); EOSINOPHILS ABSOLUTE AUTO 0.12 K/mm3 (0.00-0.68); EOSINOPHILS PERCENT AUTO 1 % (0-6); Hematocrit 44.7 % (37.0-53.0); Hemoglobin 15.2 g/dL (13.5-17.5); IMMATURE GRAN ABSOLUTE AUTO 0.09 K/mm3 (0.00-0.10); IMMATURE GRAN PERCENT AUTO 1 % (0-1); LYMPHOCYTES ABSOLUTE AUTO 2.31 K/mm3 (0.84-5.20); LYMPHOCYTES PERCENT AUTO 12 % (21-46); MONOCYTES ABSOLUTE AUTO 0.88 K/mm3 (0.16-1.47); MONOCYTES PERCENT AUTO 5 % (4-13); Mean Corpuscular HGB 29.2 pg (26.0-34.0); Mean Corpuscular Volume 86 fL (80-100); Mean Platelet Volume 11.1 fL (9.1-12.4); NEUTROPHILS ABSOLUTE AUTO 15.59 K/mm3 (1.96-9.15); NEUTROPHILS PERCENT AUTO 82 % (41-73); Platelet Count 271 K/mm3 (150-400); RDW Standard Deviation 37.8 fL (35.1-46.3); White Blood Cell Count 19.04 K/mm3 (4.00-11.30)
[2023-01-12] MEDS ORDERED: Bactrim Ds Tab1 EACH PO (16:04)
[2023-01-12 16:14] LABS: Albumin, Blood 3.5 g/dL (3.4-5.0); Bilirubin, Total 0.6 mg/dL (0.1-1.0); Bun/Creatinine Ratio 18.4 (12.0-20.0); Creatinine, Blood 0.76 mg/dL (0.60-1.20); Globulin, Blood 3.4 g/dL (2.2-4.0); Potassium, Blood 4.3 mmol/L (3.5-5.5); Total Protein, Blood 6.9 g/dL (6.4-8.2)
== END 2023-01-12 16:18 | disposition home or self-care (01) ==
LOC: ER 14:56
PROVIDERS: Student in an Organized Health Care Education/Training Program
DX: L02.216 Cutaneous abscess of umbilicus (principal); N49.2 Inflammatory disorders of scrotum; R11.0 Nausea; E11.9 Type 2 diabetes mellitus without complications; I10 Essential (primary) hypertension; E78.5 Hyperlipidemia, unspecified; J45.909 Unspecified asthma, uncomplicated; N50.82 Scrotal pain; Z79.82 Long term (current) use of aspirin; Z79.4 Long term (current) use of insulin; Z79.899 Other long term (current) drug therapy; Z87.891 Personal history of nicotine dependence
CPT/HCPCS: 76870; 80053; 83690; 85025; 99283-25

== ENCOUNTER 2023-07-13 00:01 | Emergency (ER) | payer OTHER ==
[~2023-07-13] VITALS: Ht 182.9 cm; Wt 90.7 kg
[2023-07-13] MEDS ORDERED: Ketorolac Tromethamine 30mg Vial IM ONE (00:30)
[2023-07-13] MEDS ORDERED: Diazepam 5 MG Tab PO ONE (00:30)
[2023-07-13] MEDS ORDERED: STEGLATRO15 MG PO (00:48)
[2023-07-13] MEDS ORDERED: CYCL10 PO ×2 (00:49→02:25)
[2023-07-13] MEDS ORDERED: FURO20 PO (00:50)
[2023-07-13] MEDS ORDERED: METF500 PO (00:51)
[2023-07-13] MEDS ORDERED: OMEP20ER PO (00:52)
[2023-07-13] MEDS ORDERED: GLIM4 PO (00:54)
[2023-07-13] MEDS ORDERED: ALBU90OI INH (00:55)
[2023-07-13] MEDS ORDERED: PIOG30 PO (00:57)
[2023-07-13] MEDS ORDERED: IBU600 MG PO (02:25)
[2023-07-13 02:38] VITALS: BP 138/81
== END 2023-07-13 02:39 | disposition home or self-care (01) ==
LOC: ER 00:01
DX: M54.2 Cervicalgia (principal); M54.50 Low back pain, unspecified; G89.29 Other chronic pain; E11.9 Type 2 diabetes mellitus without complications; I10 Essential (primary) hypertension; J45.909 Unspecified asthma, uncomplicated; E78.5 Hyperlipidemia, unspecified; Z79.899 Other long term (current) drug therapy; Z79.84 Long term (current) use of oral hypoglycemic drugs; Z79.82 Long term (current) use of aspirin; Z79.4 Long term (current) use of insulin
CPT/HCPCS: 72125; 96372; 99283-25; A9270; J1885

== ENCOUNTER 2023-12-23 15:34 | Emergency (ER) | payer OTHER ==
[~2023-12-23] VITALS: Ht 182.9 cm; Wt 95.2 kg
[~2023-12-23 15:34] MED LIST changes: +ALBU90OI INH; +FURO20 PO; +GLIM4 PO; +IBU600 MG PO; +OMEP20ER PO; +PIOG30 PO; +STEGLATRO15 MG PO
[2023-12-23] MEDS ORDERED: Ondansetron HCl 2 MG / ML 2ML Vial IV ONE (15:50)
[2023-12-23] MEDS ORDERED: NS 1,000 ML IV SCH ×2 (15:50→20:05)
[2023-12-23 16:32] LABS: BASOPHILS ABSOLUTE AUTO 0.02 K/mm3 (0.00-0.23); BASOPHILS PERCENT AUTO 0 % (0-2); EOSINOPHILS ABSOLUTE AUTO 0.01 K/mm3 (0.00-0.68); EOSINOPHILS PERCENT AUTO 0 % (0-6); Hemoglobin 16.4 g/dL (13.5-17.5); IMMATURE GRAN ABSOLUTE AUTO 0.04 K/mm3 (0.00-0.10); IMMATURE GRAN PERCENT AUTO 0 % (0-1); LYMPHOCYTES ABSOLUTE AUTO 2.29 K/mm3 (0.84-5.20); LYMPHOCYTES PERCENT AUTO 18 % (21-46); MONOCYTES ABSOLUTE AUTO 1.21 K/mm3 (0.16-1.47); MONOCYTES PERCENT AUTO 10 % (4-13); Mean Corpuscular HGB 29.1 pg (26.0-34.0); Mean Corpuscular HGB Conc 34.9 g/dL (31.5-36.5); Mean Corpuscular Volume 83 fL (80-100); Mean Platelet Volume 10.6 fL (9.1-12.4); NEUTROPHILS ABSOLUTE AUTO 9.18 K/mm3 (1.96-9.15); NEUTROPHILS PERCENT AUTO 72 % (41-73); Platelet Count 265 K/mm3 (150-400); RDW Standard Deviation 36.6 fL (35.1-46.3); Red Blood Cell Count 5.64 M/mm3 (4.30-5.90); White Blood Cell Count 12.75 K/mm3 (4.00-11.30)
[2023-12-23 17:19] LABS: Albumin/Globulin Ratio 0.9 (0.8-1.8); Bilirubin, Total 0.6 mg/dL (0.1-1.0); Bun/Creatinine Ratio 34.2 (12.0-20.0); Calcium, Blood 8.7 mg/dL (8.5-10.1); Creatinine, Blood 0.76 mg/dL (0.60-1.20); Globulin, Blood 3.3 g/dL (2.2-4.0); Potassium, Blood 4.3 mmol/L (3.5-5.5); Total Protein, Blood 6.3 g/dL (6.4-8.2)
[2023-12-23] MEDS ORDERED: Lactated Ringer's 1,000 ML IV ONE (21:05)
[2023-12-23] MEDS ORDERED: Metoclopramide HCl 5MG / ML 2ML Vial IV ONE (21:05)
[2023-12-23] MEDS ORDERED: METO10 PO (22:56)
[2023-12-23 23:04] VITALS: BP 141/90
== END 2023-12-23 23:06 | disposition home or self-care (01) ==
LOC: ER 15:34
PROVIDERS: Physician Assistant
DX: E11.65 Type 2 diabetes mellitus with hyperglycemia (principal); R11.2 Nausea with vomiting, unspecified; E11.43 Type 2 diabetes mellitus with diabetic autonomic (poly)neuropathy; J45.909 Unspecified asthma, uncomplicated; Z87.891 Personal history of nicotine dependence; Z79.4 Long term (current) use of insulin; Z79.82 Long term (current) use of aspirin; Z79.84 Long term (current) use of oral hypoglycemic drugs; Z79.899 Other long term (current) drug therapy
CPT/HCPCS: 80053; 82947; 83690; 85025; 96361; 96374; 99284-25; J2765; J7030; J7120

== ENCOUNTER → 2024-03-28 | Outpatient (CLI) | payer OTHER ==
[2024-03-28 15:19] LABS: BASOPHILS ABSOLUTE AUTO 0.03 K/mm3 (0.00-0.23); BASOPHILS PERCENT AUTO 0 % (0-2); EOSINOPHILS PERCENT AUTO 2 % (0-6); Hematocrit 38.1 % (37.0-53.0); Hemoglobin 13.2 g/dL (13.5-17.5); IMMATURE GRAN ABSOLUTE AUTO 0.05 K/mm3 (0.00-0.10); IMMATURE GRAN PERCENT AUTO 0 % (0-1); LYMPHOCYTES PERCENT AUTO 24 % (21-46); MONOCYTES ABSOLUTE AUTO 0.98 K/mm3 (0.16-1.47); MONOCYTES PERCENT AUTO 8 % (4-13); Mean Corpuscular HGB Conc 34.6 g/dL (31.5-36.5); Mean Corpuscular Volume 84 fL (80-100); Mean Platelet Volume 10.6 fL (9.1-12.4); NEUTROPHILS ABSOLUTE AUTO 8.32 K/mm3 (1.96-9.15); NEUTROPHILS PERCENT AUTO 66 % (41-73); Platelet Count 280 K/mm3 (150-400); RDW Coefficient Variation 11.9 % (11.7-14.2); Red Blood Cell Count 4.55 M/mm3 (4.30-5.90); White Blood Cell Count 12.58 K/mm3 (4.00-11.30)
[2024-03-28 15:29] LABS: Albumin, Blood 2.7 g/dL (3.4-5.0); Albumin/Globulin Ratio 0.8 (0.8-1.8); Bilirubin, Total 0.2 mg/dL (0.1-1.0); Bun/Creatinine Ratio 24.8 (12.0-20.0); Creatinine, Blood 1.17 mg/dL (0.60-1.20); Globulin, Blood 3.3 g/dL (2.2-4.0); Potassium, Blood 4.6 mmol/L (3.5-5.5)
== END ==
LOC: LAB 15:14 → LAB SHORT 15:14
DX: R60.0 Localized edema (principal)
CPT/HCPCS: 80053; 83880; 85025

== ENCOUNTER 2024-05-23 02:21 | Day surgery (SDC) | payer OTHER | END 2024-05-23 23:00 | disposition home or self-care (01) | LOC: WOUND 02:21 | DX: E11.621 Type 2 diabetes mellitus with foot ulcer (principal); L97.422 Non-pressure chronic ulcer of left heel and midfoot with fat layer exposed; I87.2 Venous insufficiency (chronic) (peripheral); E11.42 Type 2 diabetes mellitus with diabetic polyneuropathy; E11.51 Type 2 diabetes mellitus with diabetic peripheral angiopathy without gangrene; I70.213 Atherosclerosis of native arteries of extremities with intermittent claudication, bilateral legs; I10 Essential (primary) hypertension; E78.5 Hyperlipidemia, unspecified; J45.909 Unspecified asthma, uncomplicated; F17.210 Nicotine dependence, cigarettes, uncomplicated | CPT/HCPCS: A6214; G0463 ==

== ENCOUNTER 2024-05-30 02:22 | Day surgery (SDC) | payer OTHER ==
[2024-05-30] MEDS ORDERED: Lidocaine HCl 4% Cream 5 GM ONE (09:22)
== END 2024-05-30 23:00 | disposition home or self-care (01) ==
LOC: WOUND 02:22
DX: E11.621 Type 2 diabetes mellitus with foot ulcer (principal); L97.422 Non-pressure chronic ulcer of left heel and midfoot with fat layer exposed; L97.529 Non-pressure chronic ulcer of other part of left foot with unspecified severity; L89.890 Pressure ulcer of other site, unstageable; E11.42 Type 2 diabetes mellitus with diabetic polyneuropathy; E11.51 Type 2 diabetes mellitus with diabetic peripheral angiopathy without gangrene; I70.213 Atherosclerosis of native arteries of extremities with intermittent claudication, bilateral legs; I87.2 Venous insufficiency (chronic) (peripheral); I10 Essential (primary) hypertension; E78.5 Hyperlipidemia, unspecified; J45.909 Unspecified asthma, uncomplicated; Z89.432 Acquired absence of left foot
CPT/HCPCS: 73630; A6213; A6214; A9270

== ENCOUNTER 2024-06-07 00:37 | Day surgery (SDC) | payer OTHER ==
[2024-06-07] MEDS ORDERED: Lidocaine HCl 4% Cream 5 GM ONE (08:54)
== END 2024-06-07 23:07 | disposition home or self-care (01) ==
LOC: WOUND 00:37
DX: L89.623 Pressure ulcer of left heel, stage 3 (principal); E11.621 Type 2 diabetes mellitus with foot ulcer; L97.429 Non-pressure chronic ulcer of left heel and midfoot with unspecified severity; L89.890 Pressure ulcer of other site, unstageable; E11.51 Type 2 diabetes mellitus with diabetic peripheral angiopathy without gangrene; I70.213 Atherosclerosis of native arteries of extremities with intermittent claudication, bilateral legs; E11.42 Type 2 diabetes mellitus with diabetic polyneuropathy; I87.2 Venous insufficiency (chronic) (peripheral); I10 Essential (primary) hypertension; E78.5 Hyperlipidemia, unspecified; J45.909 Unspecified asthma, uncomplicated; F17.210 Nicotine dependence, cigarettes, uncomplicated
CPT/HCPCS: A9270; G0463

== ENCOUNTER 2024-06-11 22:46 | Emergency (ER) | payer OTHER ==
[~2024-06-11] VITALS: Ht 182.9 cm; Wt 89.8 kg
[2024-06-11] MEDS ORDERED: Ketorolac Tromethamine 30mg Vial IV ONE (23:05)
[2024-06-11 23:22] LABS: BASOPHILS ABSOLUTE AUTO 0.02 K/mm3 (0.00-0.23); BASOPHILS PERCENT AUTO 0 % (0-2); EOSINOPHILS ABSOLUTE AUTO 0.16 K/mm3 (0.00-0.68); EOSINOPHILS PERCENT AUTO 1 % (0-6); Hematocrit 33.7 % (37.0-53.0); Hemoglobin 10.9 g/dL (13.5-17.5); IMMATURE GRAN ABSOLUTE AUTO 0.03 K/mm3 (0.00-0.10); IMMATURE GRAN PERCENT AUTO 0 % (0-1); LYMPHOCYTES ABSOLUTE AUTO 1.95 K/mm3 (0.84-5.20); LYMPHOCYTES PERCENT AUTO 18 % (21-46); MONOCYTES ABSOLUTE AUTO 0.82 K/mm3 (0.16-1.47); MONOCYTES PERCENT AUTO 7 % (4-13); Mean Corpuscular HGB 28.5 pg (26.0-34.0); Mean Corpuscular HGB Conc 32.3 g/dL (31.5-36.5); Mean Corpuscular Volume 88 fL (80-100); Mean Platelet Volume 10.3 fL (9.1-12.4); NEUTROPHILS ABSOLUTE AUTO 8.06 K/mm3 (1.96-9.15); NEUTROPHILS PERCENT AUTO 73 % (41-73); Platelet Count 256 K/mm3 (150-400); RDW Coefficient Variation 11.9 % (11.7-14.2); RDW Standard Deviation 38.6 fL (35.1-46.3); Red Blood Cell Count 3.82 M/mm3 (4.30-5.90); White Blood Cell Count 11.04 K/mm3 (4.00-11.30)
[2024-06-11 23:40] LABS: Albumin, Blood 2.1 g/dL (3.4-5.0); Albumin/Globulin Ratio 0.5 (0.8-1.8); Bilirubin, Total 0.3 mg/dL (0.1-1.0); Bun/Creatinine Ratio 26.4 (12.0-20.0); Calcium, Blood 8.5 mg/dL (8.5-10.1); Creatinine, Blood 0.83 mg/dL (0.60-1.20); Potassium, Blood 4.5 mmol/L (3.5-5.5); Total Protein, Blood 6.1 g/dL (6.4-8.2)
[2024-06-12] MEDS ORDERED: FentaNYL Citrate 50 MCG/ML 2 ML Injection IV ONE (02:05)
[2024-06-12 04:00] VITALS: BP 147/91
[2024-06-12] MEDS ORDERED: ELIQUIS5 MG PO (05:13)
[2024-06-12] MEDS ORDERED: Apixaban 5 MG Tab PO ONE (05:45)
== END 2024-06-12 05:47 | disposition home or self-care (01) ==
LOC: ER 22:46
PROVIDERS: Student in an Organized Health Care Education/Training Program
DX: I82.432 Acute embolism and thrombosis of left popliteal vein (principal); E11.51 Type 2 diabetes mellitus with diabetic peripheral angiopathy without gangrene; K21.9 Gastro-esophageal reflux disease without esophagitis; I10 Essential (primary) hypertension; E78.5 Hyperlipidemia, unspecified; J45.909 Unspecified asthma, uncomplicated; Z79.899 Other long term (current) drug therapy; Z79.84 Long term (current) use of oral hypoglycemic drugs; Z79.4 Long term (current) use of insulin
CPT/HCPCS: 73650; 80053; 85025; 93926; 93971; 96374; 96375; 99284-25; A9270; J1885; J3010

== ENCOUNTER 2024-06-14 02:59 | Day surgery (SDC) | payer OTHER ==
[~2024-06-14 02:59] MED LIST changes: +ELIQUIS5 MG PO
[2024-06-14] MEDS ORDERED: Lidocaine HCl 4% Cream 5 GM ONE (10:17)
== END 2024-06-14 23:00 | disposition home or self-care (01) ==
LOC: WOUND 02:59
DX: E11.621 Type 2 diabetes mellitus with foot ulcer (principal); L97.422 Non-pressure chronic ulcer of left heel and midfoot with fat layer exposed; L89.890 Pressure ulcer of other site, unstageable; E11.42 Type 2 diabetes mellitus with diabetic polyneuropathy; I87.2 Venous insufficiency (chronic) (peripheral); E11.51 Type 2 diabetes mellitus with diabetic peripheral angiopathy without gangrene; I70.213 Atherosclerosis of native arteries of extremities with intermittent claudication, bilateral legs; I10 Essential (primary) hypertension; E78.5 Hyperlipidemia, unspecified; J45.909 Unspecified asthma, uncomplicated; F17.210 Nicotine dependence, cigarettes, uncomplicated
CPT/HCPCS: A9270; G0463

== ENCOUNTER 2024-06-15 11:57 | Inpatient (IN) | payer OTHER ==
[~2024-06-15] VITALS: Ht 182.9 cm; Wt 89.0 kg
[2024-06-15] MEDS ORDERED: OxyCODONE HCL 5 MG TAB PO ONE (12:10)
[2024-06-15 12:32] LABS: BASOPHILS ABSOLUTE AUTO 0.03 K/mm3 (0.00-0.23); BASOPHILS PERCENT AUTO 0 % (0-2); EOSINOPHILS ABSOLUTE AUTO 0.07 K/mm3 (0.00-0.68); EOSINOPHILS PERCENT AUTO 1 % (0-6); Hematocrit 35.1 % (37.0-53.0); IMMATURE GRAN ABSOLUTE AUTO 0.07 K/mm3 (0.00-0.10); IMMATURE GRAN PERCENT AUTO 1 % (0-1); LYMPHOCYTES ABSOLUTE AUTO 1.35 K/mm3 (0.84-5.20); LYMPHOCYTES PERCENT AUTO 10 % (21-46); MONOCYTES PERCENT AUTO 7 % (4-13); Mean Corpuscular HGB 29.3 pg (26.0-34.0); Mean Corpuscular HGB Conc 34.2 g/dL (31.5-36.5); Mean Corpuscular Volume 86 fL (80-100); Mean Platelet Volume 9.9 fL (9.1-12.4); NEUTROPHILS ABSOLUTE AUTO 11.26 K/mm3 (1.96-9.15); NEUTROPHILS PERCENT AUTO 82 % (41-73); Platelet Count 327 K/mm3 (150-400); RDW Coefficient Variation 11.5 % (11.7-14.2); RDW Standard Deviation 36.2 fL (35.1-46.3); Red Blood Cell Count 4.09 M/mm3 (4.30-5.90); White Blood Cell Count 13.68 K/mm3 (4.00-11.30)
[2024-06-15 13:01] LABS: International Normalized Ratio 1.12; Prothrombin Time Results 11.9 Sec (9.7-11.5)
[2024-06-15 13:04] LABS: Albumin/Globulin Ratio 0.4 (0.8-1.8); Bilirubin, Total 0.8 mg/dL (0.1-1.0); Bun/Creatinine Ratio 15.6 (12.0-20.0); Calcium, Blood 8.9 mg/dL (8.5-10.1); Creatinine, Blood 0.83 mg/dL (0.60-1.20); Globulin, Blood 4.7 g/dL (2.2-4.0); Potassium, Blood 3.8 mmol/L (3.5-5.5); Total Protein, Blood 6.7 g/dL (6.4-8.2)
[2024-06-15] MEDS ORDERED: Dose Adjust by Pharmacy XX STA ×2 (13:06→22:56)
[2024-06-15] MEDS ORDERED: Heparin Sodium,Porcine/0.5 NS 500 ML IV SCH (13:10)
[2024-06-15] MEDS ORDERED: FLU VACC TS2024-25(6MOS UP)/PF 45 MCG/0.5 ML SYRINGE IM SCH (15:10)
[2024-06-15] MEDS ORDERED: FentaNYL Citrate 50 MCG/ML 2 ML Injection IV PRN (16:05)
[2024-06-15] MEDS ORDERED: Albuterol HFA200 ACT/6.7 GM INH INH PRN (17:20)
[2024-06-15 17:29] VITALS: BP 155/94
[2024-06-15] MEDS ORDERED: Acetaminophen 325 MG TABLET PO PRN (17:35)
[2024-06-15] MEDS ORDERED: Insulin Glargine-Yfgn 100 Unit/mL 3 ML SYR SC SCH (18:00)
--- NOTE | 2024-06-15 18:15 | NUR ---
PT ARRIVED TO PCU AT 1725 VIA GURNEY AND ON RA. PT ABLE TO TRANSFER FROM GURNEY TO BED VIA RIGHT FOOT STAND AND PIVOT, TOOLERATED WELL. PT ORIENTED TO ROOM AND CALL LIGHT. PT EDUCATED ON SMOKE FEE FACILITY, NO IGNITION RISK REPORTED BY PT. HEP GTT RUNNING PER ORDER AT TIME OF ARRIVAL. PT ENDORSED PAIN TO HIS LLE FROM KNEE DOWN. PT A/OX4 AT TIME OF ARRIVAL.
[2024-06-15 19:26] VITALS: BP 179/91
[2024-06-15] MEDS ORDERED: Insulin Human Lispro 100 Units/ML 3ML Syringe SC SCH (21:00)
[2024-06-15] MEDS ORDERED: Heparin Sodium 5000 Units/ML 1ML MDV IV ONE (23:00)
[2024-06-16] VITALS (12 sets, daily range): BP systolic 148–196; BP diastolic 78–96
[2024-06-16 05:14] LABS: BASOPHILS ABSOLUTE AUTO 0.02 K/mm3 (0.00-0.23); BASOPHILS PERCENT AUTO 0 % (0-2); EOSINOPHILS ABSOLUTE AUTO 0.01 K/mm3 (0.00-0.68); EOSINOPHILS PERCENT AUTO 0 % (0-6); Hematocrit 33.6 % (37.0-53.0); Hemoglobin 11.4 g/dL (13.5-17.5); IMMATURE GRAN ABSOLUTE AUTO 0.05 K/mm3 (0.00-0.10); IMMATURE GRAN PERCENT AUTO 0 % (0-1); LYMPHOCYTES ABSOLUTE AUTO 1.12 K/mm3 (0.84-5.20); LYMPHOCYTES PERCENT AUTO 8 % (21-46); MONOCYTES ABSOLUTE AUTO 0.72 K/mm3 (0.16-1.47); MONOCYTES PERCENT AUTO 5 % (4-13); Mean Corpuscular HGB Conc 33.9 g/dL (31.5-36.5); Mean Corpuscular Volume 86 fL (80-100); NEUTROPHILS ABSOLUTE AUTO 11.57 K/mm3 (1.96-9.15); NEUTROPHILS PERCENT AUTO 86 % (41-73); Platelet Count 267 K/mm3 (150-400); RDW Coefficient Variation 11.4 % (11.7-14.2); RDW Standard Deviation 35.5 fL (35.1-46.3); Red Blood Cell Count 3.93 M/mm3 (4.30-5.90); White Blood Cell Count 13.49 K/mm3 (4.00-11.30)
[2024-06-16 05:33] LABS: Bun/Creatinine Ratio 14.2 (12.0-20.0); Calcium, Blood 8.1 mg/dL (8.5-10.1); Creatinine, Blood 0.78 mg/dL (0.60-1.20); Potassium, Blood 3.8 mmol/L (3.5-5.5)
[2024-06-16] MEDS ORDERED: Dose Adjust by Pharmacy XX STA ×2 (05:54→12:45)
[2024-06-16] MEDS ORDERED: Heparin Sodium 5000 Units/ML 1ML MDV IV ONE ×2 (05:55→12:45)
[2024-06-16] MEDS ORDERED: Insulin Glargine-Yfgn 100 Unit/mL 3 ML SYR SC SCH (06:00)
--- NOTE | 2024-06-16 06:23 | NUR ---
SHIFT SUMMARY PATIENT ALERT AND ORIENTED X4. MEDICATED PER EMAR FOR PAIN IN HIS LEFT LOWER LEG. DENIES CHEST PAIN/SHORTNESS OF BREATH. ON ROOM AIR WITH SPO2 >90%. BLOOD PRESSURE ELEVATED WHEN PAIN ELEVATED, VITAL SIGNS OTHERWISE STABLE. PATIENT NPO PENDING EVAL FROM INTERVENTIONAL RADIOLOGY. WILL CONTINUE TO MONITOR. CALL LIGHT WITHIN REACH.
[2024-06-16] MEDS ORDERED: Labetalol HCL 5 MG/ML 4ML Injection (Single Dose) IV PRN (07:25)
[2024-06-16] MEDS ORDERED: Atorvastatin 10 MG Tab PO SCH (09:00)
[2024-06-16] MEDS ORDERED: Mupirocin 2% Ointment 22 GM TOP SCH (09:00)
[2024-06-16] MEDS ORDERED: Lisinopril 20 MG Tab PO SCH (09:00)
[2024-06-16] MEDS ORDERED: Vancomycin HCL 2,000 MG in NS 500 ML IV ONE (09:35)
--- NOTE | 2024-06-16 09:51 | NUR ---
am note this rn assumed care at 0700. vital signs stable. patient is alert and oriented x4.neuro is intact. perrla. patient reports numbness and tingling to lower extremities. patient reports pain in left lower extremity rated at an 8 and reports it as a throbbing ach. patient medicated with pain medication and upon reassessment pain level at 5. patient denies chest pain/pressure or shortness of breath. patient has faint pedis pulses on the left foot. patient has diabetic ulcers on left foot. see wound care orders. see shift assessment for further detials. md duron in to see patient and instructed this rn to only give 40 units of long acting insulin this morning isntead of the 80 units that was ordered. md duron to call this rn after touching base with IR if patient plan to have procedure today or not so patient can eat or not eat.
--- NOTE | 2024-06-16 10:30 | NUR ---
update Md Talavera in to see patient to discuss procedure happening today. patient signed consent. patient to remain npo for thrombectomy today. Md Nice updated on this plan.
[2024-06-16] MEDS ORDERED: Heparin Sodium 1000 Units/ML 10ML MDV ONE (16:18)
[2024-06-16] MEDS ORDERED: NS 250 ML IV ONE (16:18)
[2024-06-16] MEDS ORDERED: NS 1,000 ML IV ONE ×2 (16:18→17:52)
--- NOTE | 2024-06-16 16:37 | NUR ---
left for peripheral angio patient left for peripheral angio at 1629 and heparin stopped at that time.
--- NOTE | 2024-06-16 17:09 | NUR ---
UPDATE pateint back to room. procedure pending at this time
--- NOTE | 2024-06-16 17:15 | NUR ---
shift summary heparin drip infusing. vital signs stable. no acute changes since previous note. see previous notes. heart center to call to inform if still planning on doing procedure today or not.
[2024-06-16] MEDS ORDERED: FentaNYL Citrate 50 MCG/ML 2 ML Injection ONE ×2 (17:52→18:08)
[2024-06-16] MEDS ORDERED: Midazolam HCl 1MG / ML 2ML Vial ONE ×2 (17:52→18:08)
--- NOTE | 2024-06-16 17:52 | NUR ---
UPDATE patient left for peripheral angio for left lower extremity. heparin turned off and pharmacy notified.
[2024-06-16] MEDS ORDERED: Vancomycin HCL 1,250 MG in NS 250 ML IV SCH (18:00)
[2024-06-16] MEDS ORDERED: Alteplase Recombinant 2 MG / Vial ONE (18:24)
[2024-06-16] MEDS ORDERED: Midazolam HCl 1MG / ML 2ML Vial IV PRN (18:55)
[2024-06-16] MEDS ORDERED: Melatonin 3 MG Tab PO PRN (18:55)
[2024-06-16] MEDS ORDERED: Alteplase 1 MG/ML 25 MG in NS 250 ML IV SCH (19:05)
[2024-06-16] MEDS ORDERED: Heparin Sodium,Porcine/0.5 NS 500 ML IV SCH (19:05)
[2024-06-16] MEDS ORDERED: FentaNYL Citrate 50 MCG/ML 2 ML Injection IV PRN ×2 (21:20→23:45)
[2024-06-16] MEDS ORDERED: FentaNYL Citrate 50 MCG/ML 2 ML Injection IV ONE (23:40)
[2024-06-16] MEDS ORDERED: Gabapentin 300 MG Cap PO ONE (23:40)
[2024-06-16] MEDS ORDERED: Cyclobenzaprine HCl 10 MG Tab PO ONE (23:40)
[2024-06-17] VITALS (23 sets, daily range): BP systolic 135–196; BP diastolic 84–119
[2024-06-17 01:04] LABS: BASOPHILS ABSOLUTE AUTO 0.03 K/mm3 (0.00-0.23); BASOPHILS PERCENT AUTO 0 % (0-2); EOSINOPHILS PERCENT AUTO 0 % (0-6); Hematocrit 33.2 % (37.0-53.0); Hemoglobin 11.5 g/dL (13.5-17.5); IMMATURE GRAN ABSOLUTE AUTO 0.12 K/mm3 (0.00-0.10); IMMATURE GRAN PERCENT AUTO 1 % (0-1); LYMPHOCYTES ABSOLUTE AUTO 0.64 K/mm3 (0.84-5.20); LYMPHOCYTES PERCENT AUTO 3 % (21-46); MONOCYTES ABSOLUTE AUTO 1.25 K/mm3 (0.16-1.47); MONOCYTES PERCENT AUTO 6 % (4-13); Mean Corpuscular HGB 28.6 pg (26.0-34.0); Mean Corpuscular HGB Conc 34.6 g/dL (31.5-36.5); Mean Corpuscular Volume 83 fL (80-100); Mean Platelet Volume 9.6 fL (9.1-12.4); NEUTROPHILS ABSOLUTE AUTO 19.18 K/mm3 (1.96-9.15); NEUTROPHILS PERCENT AUTO 90 % (41-73); Platelet Count 242 K/mm3 (150-400); RDW Coefficient Variation 11.5 % (11.7-14.2); RDW Standard Deviation 35.1 fL (35.1-46.3); Red Blood Cell Count 4.02 M/mm3 (4.30-5.90); White Blood Cell Count 21.22 K/mm3 (4.00-11.30)
[2024-06-17 01:19] LABS: Bun/Creatinine Ratio 13.4 (12.0-20.0); Calcium, Blood 8.1 mg/dL (8.5-10.1); Creatinine, Blood 0.82 mg/dL (0.60-1.20); Potassium, Blood 3.1 mmol/L (3.5-5.5)
[2024-06-17] MEDS ORDERED: HydrALAZINE HCl 20 MG / ML 1ML Vial IV PRN (06:35)
[2024-06-17] MEDS ORDERED: Potassium Chloride 40 MEQ in NS 250 ML IV ONE (06:50)
[2024-06-17] MEDS ORDERED: Lisinopril 20 MG Tab PO SCH ×2 (08:00→09:00)
--- NOTE | 2024-06-17 08:20 | NUR ---
0715 ASSUMED CARE OF PATIENT. R FEM SHEATH IN PLACE AREA IS SOFT/NON TENDER NO VISIBLE HEMATOMA NO BLEEDING AT SITE. HEPARIN INFUSING AT 500U/HR AND CATH DANY INFUSING AT 1MG AN HOUR. HOME MED RECONCILATION WITH DR MERIDA THIS AM, MED ORDERS RECIEVED. PAIN TO RLE, CRAMPING SQUEEZING PAIN PRESENT SINCE ADMISSION. RLE IS WARM WITH COOL SKIN BELOW ANKLE, NO VISIBLE OR PALPABLE EDEMA, HEMOSIRDIN STAINING PRESENT. DIFFULT DOPPLER PEDAL PULSES ON R BUT +[address] GARCIA TO ASSESS PT AND EST PLAN MOVING FORWARD
[2024-06-17] MEDS ORDERED: Gabapentin 300 MG Cap PO SCH (09:00)
[2024-06-17] MEDS ORDERED: Cyclobenzaprine HCl 10 MG Tab PO SCH (09:00)
[2024-06-17 09:40] LABS: Vancomycin, Trough 21.9 ug/mL (5.0-10.0)
[2024-06-17] MEDS ORDERED: Vancomycin HCL 1,000 MG in NS 250 ML IV SCH (12:00)
[2024-06-17] MEDS ORDERED: NS 500 ML IV ONE (15:57)
[2024-06-17] MEDS ORDERED: Heparin Sodium 1000 Units/ML 10ML MDV ONE (15:57)
[2024-06-17] MEDS ORDERED: Nitroglycerin 2 MG/20 ML BTL ONE (15:58)
[2024-06-17] MEDS ORDERED: NS 1,000 ML IV ONE (15:58)
--- NOTE | 2024-06-17 16:24 | NUR ---
PT TRANSPORTED TO KEY ACCOUNT COORDINATOR AT 1620.
[2024-06-17] MEDS ORDERED: FentaNYL Citrate 50 MCG/ML 2 ML Injection ONE (16:34)
[2024-06-17] MEDS ORDERED: Midazolam HCl 1MG / ML 2ML Vial ONE (16:34)
[2024-06-17] MEDS ORDERED: Alteplase Recombinant 2 MG / Vial ONE (17:02)
[2024-06-17] MEDS ORDERED: Dose Adjust by Pharmacy XX STA (18:21)
[2024-06-17] MEDS ORDERED: Heparin Sodium,Porcine/0.5 NS 500 ML IV SCH (18:25)
[2024-06-17] MEDS ORDERED: Dextrose 50% 50 ML Vial IV ONE (18:55)
--- NOTE | 2024-06-17 19:21 | NUR ---
SHIFT SUMMARY PT ALERT AND ORIENTED X4. ABLE TO MAKE HIS NEEDS KNOW. FOLLOWS COMMANDS CURRENTLY ON RESTRICTIONS SUPINE FOR R FEMORAL SHEATH. CARDIAC: SINUS RHYTHM, HTN SBP 150-160S. HR 80-90S. LUNGS: CLEAR DIM THROUGH OUT. GI: HYPOACTIVE BOWEL TONES, ABDOMEN IS SOFT/NON TENDER : CONDOM CATH IN PLACE, LOW UOP THIS AM 50ML. SOME URINARY RETENTION LIKELY DUE TO PT SEDATION. BLADDER SCAN COMPLETED 999ML AT 1830. PT REFUSED STRAIGHT CATH, AGREED TO 30 MIN IF HAS NOT URINATED WILL PROCEED. PT URINATED APPROX 1900. PRN PAIN MEDICATION LIKELY A CONTRIBUTIVE FACTOR. PT RETURNED FROM COMBAT ENGINEER APPROX 1745. R FEMORAL SITE SOFT/NON TENDER/NO VISIBLE HEMATOMA. +2 DOPPLER PULSE IN RLE, INTERMITTENT/FAINT PULSE IN LLE. PT TO START ON HEPARIN GTT, AWAITING LABS. PT DIAPHORETIC UPON RETURN AND FOUND TO BE HYPOGLYCEMIC. DR CONKLIN NOTIFIED. ORAL SUPPLEMENTATION COMPLETED AND RECHECKED PT BG WAS SLIGHTLY LOWER. PT SOMEWHAT DROWSY RASS -1 TOLERATED PO FLUIDS WELL BUT NOT SAFE FOR SOLIDS PO INTAKE WHILE LAYING FLAT (PT HAS NO DENTATION/RESTRICTIONS-REMAIN SUPINE/DROWSY). CALL TO DR CONKLIN. 1 AMP OF D50 ORDERED. CALL TO FAMILY- FATHER TO UPDATE ON HIS CONDITION. CHG BATH ANTERIOR COMPLETED. EVENING INSULINS HELD PER DR CONKLIN
--- NOTE | 2024-06-17 20:31 | NUR ---
NURSE NOTE: AT SHIFT CHANGE, HEPARIN GTT WAS ON STANDBY. PHARMACY CALLED AROUND 1939 AND HEPARIN GTT WAS RESTARTED AT 1943 AT 18U/KG/HR PER ORDER.
[2024-06-18] VITALS (15 sets, daily range): BP systolic 97–176; BP diastolic 49–97
[2024-06-18 01:05] LABS: BASOPHILS ABSOLUTE AUTO 0.04 K/mm3 (0.00-0.23); BASOPHILS PERCENT AUTO 0 % (0-2); EOSINOPHILS ABSOLUTE AUTO 0.01 K/mm3 (0.00-0.68); EOSINOPHILS PERCENT AUTO 0 % (0-6); Hematocrit 36.9 % (37.0-53.0); Hemoglobin 12.3 g/dL (13.5-17.5); IMMATURE GRAN ABSOLUTE AUTO 0.12 K/mm3 (0.00-0.10); IMMATURE GRAN PERCENT AUTO 1 % (0-1); LYMPHOCYTES ABSOLUTE AUTO 2.05 K/mm3 (0.84-5.20); LYMPHOCYTES PERCENT AUTO 10 % (21-46); MONOCYTES ABSOLUTE AUTO 1.35 K/mm3 (0.16-1.47); MONOCYTES PERCENT AUTO 6 % (4-13); Mean Corpuscular HGB 28.4 pg (26.0-34.0); Mean Corpuscular HGB Conc 33.3 g/dL (31.5-36.5); Mean Corpuscular Volume 85 fL (80-100); Mean Platelet Volume 9.6 fL (9.1-12.4); NEUTROPHILS ABSOLUTE AUTO 17.85 K/mm3 (1.96-9.15); NEUTROPHILS PERCENT AUTO 83 % (41-73); Platelet Count 251 K/mm3 (150-400); RDW Coefficient Variation 11.8 % (11.7-14.2); RDW Standard Deviation 36.7 fL (35.1-46.3); Red Blood Cell Count 4.33 M/mm3 (4.30-5.90); White Blood Cell Count 21.42 K/mm3 (4.00-11.30)
[2024-06-18 01:21] LABS: Calcium, Blood 7.4 mg/dL (8.5-10.1); Creatinine, Blood 0.9 mg/dL (0.60-1.20); Potassium, Blood 3.3 mmol/L (3.5-5.5)
[2024-06-18] MEDS ORDERED: Dose Adjust by Pharmacy XX STA (02:20)
[2024-06-18] MEDS ORDERED: Potassium Chloride 20 MEQ TabCR PO ONE (03:40)
[2024-06-18] MEDS ORDERED: Potassium Chl 20MEQ/Water100ML 100 ML IV SCH (06:15)
--- NOTE | 2024-06-18 06:19 | NUR ---
END OF SHIFT: AT THE START OF THE SHIFT, PT BLOOD GLUCOSE WAS LOW IN THE 50s AND SO AN AMP OF D50 HAD TO BE GIVEN. SINCE THEN BLOOD SUGARS HAVE BEEN CHECKED EVERY COUPLE OF HOURS. PT WAS ALSO COMPLAINING OF PAIN IN LEFT LOWER EXTREMITY AND MEDS WERE GIVEN PER EMAR. OTHER THAN THAT, PT HAD NO ADVERSE EVENTS OVERNIGHT AND HE SLEPT MOST OF THE NIGHT. GOT UP TO CHAIR THIS AM AT PT REQUEST WHERE HE IS CURRENTLY RESTING. HR CURRENTLY 119 BPM, SAT 99% ON ROOM AIR, AND BP 169/97
--- NOTE | 2024-06-18 08:00 | NUR ---
Rusk of care: Alert, oriented, cooperative. OOB to chair with one-person assist. In normal ST 110-120. BP stable. Doppler bilat pedal pulses. On room air with clear lung sounds. Voiding with male condom cath in place. Good PO intake. Small bm this morning. PIV x2 in place. Will continue to monitor.
[2024-06-18] MEDS ORDERED: Apixaban 5 MG Tab PO SCH (09:00)
[2024-06-18] MEDS ORDERED: OxyCODONE HCL 5 MG TAB PO PRN (09:30)
[2024-06-18] MEDS ORDERED: ELIQUIS5 M2 PO (13:11)
[2024-06-18] MEDS ORDERED: CYCL10 PO (13:12)
--- NOTE | 2024-06-18 15:07 | NUR ---
Patient given discharge paperwork & all questions answered. Escorted out in wheelchair.
== END 2024-06-18 14:55 | disposition home or self-care (01) | DRG 300 ==
LOC: ER 11:57 → PCU 11:58 → ICUE 06-16 14:27
PROVIDERS: Emergency Medicine; ADMIT Hospitalist
PROC: 04HN33Z Insertion of Infusion Device into Left Popliteal Artery, Percutaneous Approach (ICD-10-PCS; principal; 2024-06-16)
PROC: 3E05317 Introduction of Other Thrombolytic into Peripheral Artery, Percutaneous Approach (ICD-10-PCS; 2024-06-16)
DX: I70.222 Atherosclerosis of native arteries of extremities with rest pain, left leg (principal); I50.22 Chronic systolic (congestive) heart failure; I74.3 Embolism and thrombosis of arteries of the lower extremities; R65.10 Systemic inflammatory response syndrome (SIRS) of non-infectious origin without acute organ dysfunction; L97.422 Non-pressure chronic ulcer of left heel and midfoot with fat layer exposed; E11.51 Type 2 diabetes mellitus with diabetic peripheral angiopathy without gangrene; E11.621 Type 2 diabetes mellitus with foot ulcer; Z86.14 Personal history of Methicillin resistant Staphylococcus aureus infection; E78.5 Hyperlipidemia, unspecified; E87.6 Hypokalemia; J45.909 Unspecified asthma, uncomplicated; Z79.4 Long term (current) use of insulin; I11.0 Hypertensive heart disease with heart failure; L97.529 Non-pressure chronic ulcer of other part of left foot with unspecified severity; K21.9 Gastro-esophageal reflux disease without esophagitis; Z89.412 Acquired absence of left great toe; E11.42 Type 2 diabetes mellitus with diabetic polyneuropathy; L89.890 Pressure ulcer of other site, unstageable; I87.2 Venous insufficiency (chronic) (peripheral); I70.213 Atherosclerosis of native arteries of extremities with intermittent claudication, bilateral legs; F17.210 Nicotine dependence, cigarettes, uncomplicated; Z89.422 Acquired absence of other left toe(s); Z98.890 Other specified postprocedural states; Z86.19 Personal history of other infectious and parasitic diseases; Z79.899 Other long term (current) drug therapy; Z79.84 Long term (current) use of oral hypoglycemic drugs; Z79.82 Long term (current) use of aspirin; Z79.01 Long term (current) use of anticoagulants
CPT/HCPCS: 36415; 75635; 76937; 80048; 80053; 80202; 82330; 82947; 85025; 85384; 85520; 85610; 85730; 93306; 94762; 96365-59; 96366; 97116; 97162; 97530; 99152; 99153; 99284-25; A9270; C1725; C1757; C1760; C1769; C1887; C1894; G0378; G0463; J1644; J1815; J2250; J2997; J3010; J3370; J3480; J7030; J7040; J7050; J7799; Q9967

== ENCOUNTER 2024-06-28 11:49 | Inpatient (IN) | payer OTHER ==
[~2024-06-28] VITALS: Ht 182.9 cm; Wt 80.7 kg
[~2024-06-28 11:49] MED LIST changes: +ELIQUIS5 M2 PO
[2024-06-28 12:28] LABS: BASOPHILS ABSOLUTE AUTO 0.07 K/mm3 (0.00-0.23); BASOPHILS PERCENT AUTO 0 % (0-2); EOSINOPHILS ABSOLUTE AUTO 0.22 K/mm3 (0.00-0.68); EOSINOPHILS PERCENT AUTO 1 % (0-6); Hematocrit 39.8 % (37.0-53.0); Mean Corpuscular HGB 27.6 pg (26.0-34.0); Mean Corpuscular HGB Conc 32.7 g/dL (31.5-36.5); Mean Corpuscular Volume 85 fL (80-100); Mean Platelet Volume 9.5 fL (9.1-12.4); Platelet Count 745 K/mm3 (150-400); RDW Coefficient Variation 12.1 % (11.7-14.2); RDW Standard Deviation 37.1 fL (35.1-46.3); Red Blood Cell Count 4.71 M/mm3 (4.30-5.90); White Blood Cell Count 25.42 K/mm3 (4.00-11.30)
[2024-06-28 12:31] LABS: IMMATURE GRAN ABSOLUTE AUTO 0.21 K/mm3 (0.00-0.10); IMMATURE GRAN PERCENT AUTO 1 % (0-1); LYMPHOCYTES ABSOLUTE AUTO 4.18 K/mm3 (0.84-5.20); LYMPHOCYTES PERCENT AUTO 16 % (21-46); MONOCYTES ABSOLUTE AUTO 1.11 K/mm3 (0.16-1.47); MONOCYTES PERCENT AUTO 4 % (4-13); NEUTROPHILS ABSOLUTE AUTO 19.63 K/mm3 (1.96-9.15); NEUTROPHILS PERCENT AUTO 77 % (41-73)
[2024-06-28 12:48] LABS: BASOPHILS PERCENT MAN 0 % (0-2); EOSINOPHILS ABSOLUTE MAN 0.25 K/mm3 (0.00-0.68); EOSINOPHILS PERCENT MAN 1 % (0-6); LYMPHOCYTES % ATYPICAL MANUAL 1 % (0-0); LYMPHOCYTES ABSOLUTE MAN 4.57 K/mm3 (0.84-5.20); LYMPHOCYTES PERCENT MAN 17 % (21-46); MONOCYTES ABSOLUTE MAN 0.76 K/mm3 (0.16-1.47); MONOCYTES PERCENT MAN 3 % (4-13); NEUTROPHILS ABSOLUTE MAN 19.82 K/mm3 (1.96-9.15); SEG NEUTROPHILS PERCENT MAN 78 % (41-73); TOTAL CELLS COUNTED 100
[2024-06-28 13:00] LABS: Albumin, Blood 2.3 g/dL (3.4-5.0); Albumin/Globulin Ratio 0.4 (0.8-1.8); Bilirubin, Total 0.2 mg/dL (0.1-1.0); Bun/Creatinine Ratio 20.5 (12.0-20.0); Calcium, Blood 10.1 mg/dL (8.5-10.1); Creatinine, Blood 1.85 mg/dL (0.60-1.20); Globulin, Blood 5.5 g/dL (2.2-4.0); Potassium, Blood 2.9 mmol/L (3.5-5.5); Total Protein, Blood 7.8 g/dL (6.4-8.2)
[2024-06-28] MEDS ORDERED: NS 1,000 ML IV SCH (15:30)
[2024-06-28] MEDS ORDERED: Potassium Chloride 20 MEQ TabCR PO ONE (15:35)
[2024-06-28] MEDS ORDERED: Piperacillin/Tazobactam Sod 3.375 GM in NS 100 ML IV ONE (15:35)
[2024-06-28] MEDS ORDERED: Vancomycin HCL 2,000 MG in NS 500 ML IV ONE (15:45)
[2024-06-28] MEDS ORDERED: Polyethylene Glycol 3350 17 gm PO PRN (16:45)
[2024-06-28] MEDS ORDERED: OxyCODONE HCL 5 MG TAB PO PRN (16:45)
[2024-06-28] MEDS ORDERED: Ampicillin Sod/Sulbactam Sod 3 GM in NS 100 ML IV SCH (18:00)
[2024-06-28 20:33] VITALS: BP 150/89
[2024-06-28] MEDS ORDERED: Lactobacil 2-S.Thermo-Bifido 1 1 Cap PO SCH (21:00)
[2024-06-28] MEDS ORDERED: Docusate Sodium/Senna 1 Tab PO SCH (21:00)
[2024-06-28] MEDS ORDERED: NS 250 ML IV PRN (23:50)
[2024-06-29] VITALS (21 sets, daily range): BP systolic 113–167; BP diastolic 68–95
[2024-06-29 04:48] LABS: Hematocrit 37.5 % (37.0-53.0); Hemoglobin 12.1 g/dL (13.5-17.5); Mean Corpuscular HGB 27.6 pg (26.0-34.0); Mean Corpuscular HGB Conc 32.3 g/dL (31.5-36.5); Mean Corpuscular Volume 85 fL (80-100); Mean Platelet Volume 9.7 fL (9.1-12.4); Platelet Count 680 K/mm3 (150-400); RDW Coefficient Variation 12.3 % (11.7-14.2); RDW Standard Deviation 37.8 fL (35.1-46.3); Red Blood Cell Count 4.39 M/mm3 (4.30-5.90); White Blood Cell Count 24.63 K/mm3 (4.00-11.30)
[2024-06-29 05:05] LABS: Albumin, Blood 1.9 g/dL (3.4-5.0); Anion Gap 10 mmol/L (3-11); Blood Urea Nitrogen 33 mg/dL (8-24); Bun/Creatinine Ratio 21.7 (12.0-20.0); CO2, Blood 30 mmol/L (21-32); Calcium, Blood 8.2 mg/dL (8.5-10.1); Chloride, Blood 100 mmol/L (98-108); Creatinine, Blood 1.52 mg/dL (0.60-1.20); Glomerular Filtration Rate 59 (60-); Glucose, Blood 97 mg/dL (70-99); Magnesium, Blood 2.1 mg/dL (1.6-2.4); Phosphorus, Blood 3.1 mg/dL (2.5-4.9); Potassium, Blood 3.1 mmol/L (3.5-5.5); Sodium, Blood 137 mmol/L (136-145)
[2024-06-29] MEDS ORDERED: Vancomycin HCL 750 MG in NS 250 ML IV SCH (07:00)
--- NOTE | 2024-06-29 07:33 | NUR ---
SHIFT SUMMARY PT ADMITTED 2027 FROM ED FOR SEPSIS D/T CELLULITIS. PT IS ALERT AND ORIENTED. HE IS PLEASANT AND COOPERATIVE WITH CARE. PT DENIES PAIN AT THIS TIME. PT WOUNDS PHOTOGRAPHED AND COVERED WITH MEPILEX AND TEGADERM. PT NOW RESTING PEACEFULLY IN HIS BED. MEDICATED FOR 7/10 PAIN PER EMAR. ON REASSESSMENT, PT AT 5/10 PAIN LEVEL. PT HAD TELE LEAD OFF. WAS REPLACED BY BREAK NURSE. PT UP TO BATHROOM AND BACK IN BED RESTING. CALL LIGHT IN REACH. PT NOTICED IN BATHROOM THAT SKIN BETWEEN LAST TWO TOES ON LEFT FOOT BEGAN TO SLOUGH. CHARGE NOTIFIED, PHOTOS TAKEN AND PLACED IN CHART, AND DAY SHIFT NURSE NOTIFIED. PT TO RECEIVE WOUND CARE CONSULT TODAY.
[2024-06-29] MEDS ORDERED: Potassium Chloride 20 MEQ TabCR PO ONE (07:40)
[2024-06-29] MEDS ORDERED: Insulin Glargine-Yfgn 100 Unit/mL 3 ML SYR SC SCH (15:00)
[2024-06-29] MEDS ORDERED: Vancomycin HCL 1,000 MG in NS 250 ML IV SCH (16:00)
[2024-06-29] MEDS ORDERED: Insulin Human Lispro 100 Units/ML 3ML Syringe SC SCH (16:30)
[2024-06-29] MEDS ORDERED: NS 250 ML IV ONE (17:23)
[2024-06-29] MEDS ORDERED: NS 2,000 ML IV ONE (17:23)
[2024-06-29] MEDS ORDERED: Heparin Sodium 1000 Units/ML 10ML MDV ONE ×2 (17:23→18:26)
--- NOTE | 2024-06-29 17:40 | NUR ---
SHIFT SUMMARY AND TRANSFER TO LOCOMOTIVE INSPECTOR PATIENT ALERT AND INTERACTIVE. PATIENT ABLE TO AMBULATE WITH WALKER IN ROOM. CONTINUES ON IV ANTIBIOTICS. DR. COTTER EVALUATED PATIENT PRIOR TO TRANSFER TO LOCOMOTIVE INSPECTOR. PLAN TO KEEP DRY DRESSING IN PLACE AND CHANGE WHEN SOILED. WILL RE EVALUATE WOUND AFTER.
[2024-06-29] MEDS ORDERED: Midazolam HCl 1MG / ML 2ML Vial ONE ×2 (17:48→18:07)
[2024-06-29] MEDS ORDERED: FentaNYL Citrate 50 MCG/ML 2 ML Injection ONE ×3 (17:48→18:51)
[2024-06-29] MEDS ORDERED: HydrALAZINE HCl 20 MG / ML 1ML Vial ONE ×2 (18:05→18:46)
--- NOTE | 2024-06-29 18:06 | NUR ---
REPORT RECIEVED FROM KELSEA Celestin RN. PT TRANSFERING TO U 08 AFTER REVASC IN VAMP LINER. PT CURRENTLY IN THE VAMP LINER
[2024-06-29] MEDS ORDERED: Nitroglycerin 2 MG/20 ML BTL ONE (18:13)
[2024-06-29] MEDS ORDERED: NS 1,000 ML IV ONE ×2 (18:21→18:23)
[2024-06-29] MEDS ORDERED: Alteplase Recombinant 2 MG / Vial ONE (18:28)
[2024-06-29] MEDS ORDERED: Labetalol HCL 5 MG/ML 4ML Injection (Single Dose) ONE (19:01)
[2024-06-29] MEDS ORDERED: HydrALAZINE HCl 20 MG / ML 1ML Vial IV PRN (19:25)
[2024-06-29] MEDS ORDERED: Labetalol HCL 5 MG/ML 4ML Injection (Single Dose) IV PRN (19:25)
--- NOTE | 2024-06-29 22:11 | NUR ---
ASSUMPTION OF CARE ASSUMED PATIENT CARE AT 1935, THEY BROUGHT TO ICU FROM THE GRAIN SCOOPER. PT WAS ADMITTED TO THE HOSPITAL FOR POSSIBLE SEPSIS FROM DIABTEIC WOUNDS ON LEFT FOOT. THROMBECTOMY PERFORMED IN GRAIN SCOOPER FOR LEFT POPLITEAL OCCLUSION. PT IS A&OX4 GCS15 AND EXPEREINCING 8/10 BACK PAIN. THEY HAVE A PERIPHERAL IV IN THE L ARM THAT IS DRESSED WITH TEGADERM. THEY HAVE A PREVIOUS L BIG TOE AMPUTATION AND PULSES ARE FAINT IN THE LEFT FOOT. LUNG SOUNDS ARE CLEAR AND EQUAL BILATERALLY. HR SLIGHTLY TACHY AT 102, BP IS STABLE, SYSTOLIC IN THE THE 120'S AND MAP>65. PT USES A MORTORIZED SCOOTER TO GET AROUND. PT IS RECIVING IV ANTIBIOTICS. LINES AND CORDS WERE PLACED OUT OF THE WAY, CALL LIGHT WAS PLACED WITHIN REACH AND THEY WERE TOLD TO PRESS CALL BUTTON IF THEY NEED ANY HELP. WILL CONTINUE TO MONITOR.
--- NOTE | 2024-06-29 23:19 | NUR ---
NURSE NOTE: REMOVED DRESSING FROM WOUNDS ON LEFT FOOT. WOUNDS ON HEEL, TOP OF FOOT AND TOES WERE CLEANED WITH WOUND CLEANSER. WOUNDS WERE COVERED WITH NONADHERANT GAUZED AND WRAPPED WITH KERLEX DRESSING.
[2024-06-30] VITALS (80 sets, daily range): BP systolic 118–226; BP diastolic 62–115
[2024-06-30 03:45] LABS: BASOPHILS ABSOLUTE AUTO 0.04 K/mm3 (0.00-0.23); BASOPHILS PERCENT AUTO 0 % (0-2); EOSINOPHILS ABSOLUTE AUTO 0.11 K/mm3 (0.00-0.68); EOSINOPHILS PERCENT AUTO 1 % (0-6); Hematocrit 34.5 % (37.0-53.0); Hemoglobin 11.1 g/dL (13.5-17.5); IMMATURE GRAN ABSOLUTE AUTO 0.14 K/mm3 (0.00-0.10); IMMATURE GRAN PERCENT AUTO 1 % (0-1); LYMPHOCYTES ABSOLUTE AUTO 2.49 K/mm3 (0.84-5.20); LYMPHOCYTES PERCENT AUTO 11 % (21-46); MONOCYTES ABSOLUTE AUTO 0.88 K/mm3 (0.16-1.47); MONOCYTES PERCENT AUTO 4 % (4-13); Mean Corpuscular HGB 27.5 pg (26.0-34.0); Mean Corpuscular HGB Conc 32.2 g/dL (31.5-36.5); Mean Corpuscular Volume 85 fL (80-100); NEUTROPHILS ABSOLUTE AUTO 19.21 K/mm3 (1.96-9.15); NEUTROPHILS PERCENT AUTO 84 % (41-73); Platelet Count 475 K/mm3 (150-400); RDW Coefficient Variation 12.3 % (11.7-14.2); RDW Standard Deviation 38.4 fL (35.1-46.3); Red Blood Cell Count 4.04 M/mm3 (4.30-5.90); White Blood Cell Count 22.87 K/mm3 (4.00-11.30)
[2024-06-30 04:00] LABS: Albumin, Blood 1.7 g/dL (3.4-5.0); Albumin/Globulin Ratio 0.4 (0.8-1.8); Bilirubin, Total 0.2 mg/dL (0.1-1.0); Bun/Creatinine Ratio 16.5 (12.0-20.0); Calcium, Blood 8.3 mg/dL (8.5-10.1); Creatinine, Blood 1.58 mg/dL (0.60-1.20); Globulin, Blood 4.5 g/dL (2.2-4.0); Potassium, Blood 3.5 mmol/L (3.5-5.5); Total Protein, Blood 6.2 g/dL (6.4-8.2)
[2024-06-30 04:08] LABS: Vancomycin, Trough 31.3 ug/mL (5.0-10.0)
[2024-06-30] MEDS ORDERED: Omeprazole 20 MG CapCR PO SCH (06:00)
--- NOTE | 2024-06-30 06:58 | NUR ---
SHIFT SUMMARY: PT DID WELL THROUGHOUT THE SHIFT AND WAS ABLE TO SLEEP FOR PART OF THE NIGHT. PT BECAME HYPERTENSIVE TOWARDS THE END OF THE SHIFT AND THEY WERE GIVEN A PRN DOSE OF HYDRALAZINE. THEY HAVE A PERIPHERAL IV IN THE LEFT ARM WHICH THEY ARE RECEIVING ANTIBIOTICS THROUGH. PATIENT IS EAGER TO GET OUT THE BED AND MOVE AROUND, THEY HAVE BEEN TOLD THEY NEED TO LIMIT THEIR MOVEMENTS FOR NOW UNTIL THEIR SURGICAL SITE HEALS. THIR VANCO TROUGH WAS 31.3, SO PHARMACY WITHELD THEIR 0600 VANCOMYACIN. WOUND ON THEIR LEFT FOOT WAS CLEANED AND REDREESSED WITH WOUND CLEANSER AND KERLEX GAUZE. THEIR LINES AND CORDS WERE PLACED OUT OF THEIR WAY AND THEIR CALL LIGHT WAS PLACED WITHIN THEIR REACH.
--- NOTE | 2024-06-30 08:30 | NUR ---
CALL TO DR WALTERS REGARDING ORDERS FOR HEPARIN NOT RECIEVED. HEPARIN ORDERS GIVEN VERBALLY ORDERS PLACED SEE MAR.
[2024-06-30] MEDS ORDERED: Empagliflozin 10 MG TAB PO SCH (09:00)
[2024-06-30] MEDS ORDERED: Sertraline HCl 50 MG Tab PO SCH (09:00)
[2024-06-30 09:11] LABS: BASOPHILS ABSOLUTE AUTO 0.07 K/mm3 (0.00-0.23); BASOPHILS PERCENT AUTO 0 % (0-2); EOSINOPHILS ABSOLUTE AUTO 0.14 K/mm3 (0.00-0.68); EOSINOPHILS PERCENT AUTO 1 % (0-6); Hematocrit 36.3 % (37.0-53.0); Hemoglobin 11.7 g/dL (13.5-17.5); IMMATURE GRAN PERCENT AUTO 1 % (0-1); LYMPHOCYTES ABSOLUTE AUTO 2.38 K/mm3 (0.84-5.20); LYMPHOCYTES PERCENT AUTO 11 % (21-46); MONOCYTES ABSOLUTE AUTO 0.93 K/mm3 (0.16-1.47); MONOCYTES PERCENT AUTO 4 % (4-13); Mean Corpuscular HGB Conc 32.2 g/dL (31.5-36.5); Mean Corpuscular Volume 87 fL (80-100); NEUTROPHILS ABSOLUTE AUTO 17.54 K/mm3 (1.96-9.15); NEUTROPHILS PERCENT AUTO 83 % (41-73); NRBC ABSOLUTE 0.02 K/mm3 (0.00-0.02); NRBC Auto 0.1 /100 WBC (0.0-0.2); Platelet Count 473 K/mm3 (150-400); RDW Coefficient Variation 12.6 % (11.7-14.2); RDW Standard Deviation 40.2 fL (35.1-46.3); Red Blood Cell Count 4.18 M/mm3 (4.30-5.90); White Blood Cell Count 21.16 K/mm3 (4.00-11.30)
[2024-06-30 09:17] LABS: Anti-Xa UFH, PHA Monitoring <0.10 IU/mL; International Normalized Ratio 1.12; Prothrombin Time Results 11.9 Sec (9.7-11.5)
[2024-06-30] MEDS ORDERED: Dose Adjust by Pharmacy XX STA (09:29)
[2024-06-30] MEDS ORDERED: Heparin Sodium,Porcine/0.5 NS 500 ML IV SCH (09:30)
[2024-06-30] MEDS ORDERED: Heparin Sodium 5000 Units/ML 1ML MDV IV ONE (09:30)
[2024-06-30] MEDS ORDERED: Heparin Sodium 1000 Units/ML 10ML MDV ONE ×3 (10:18→11:57)
[2024-06-30] MEDS ORDERED: NS 0 ML IV ONE (10:18)
[2024-06-30] MEDS ORDERED: NS 1,000 ML IV ONE (11:56)
[2024-06-30] MEDS ORDERED: NS 100 ML IV ONE (11:57)
[2024-06-30] MEDS ORDERED: NS 250 ML IV ONE (11:57)
[2024-06-30] MEDS ORDERED: Verapamil HCL 2.5 MG/ML 2ML Injection ONE (13:19)
[2024-06-30] MEDS ORDERED: Nitroglycerin 2 MG/20 ML BTL ONE (13:20)
[2024-06-30] MEDS ORDERED: Alteplase 1 MG/ML 10 MG in NS 100 ML IV SCH (14:10)
[2024-06-30] MEDS ORDERED: Alteplase Recombinant 2 MG / Vial ONE ×2 (14:14→15:00)
[2024-06-30] MEDS ORDERED: Melatonin 3 MG Tab PO PRN (14:35)
[2024-06-30] MEDS ORDERED: Prochlorperazine Edisylate 10 mg Vial IV PRN (14:35)
[2024-06-30] MEDS ORDERED: Prochlorperazine Maleate 5 MG Tab PO PRN (14:35)
[2024-06-30] MEDS ORDERED: Midazolam HCl 1MG / ML 2ML Vial IV PRN (14:35)
[2024-06-30] MEDS ORDERED: Ondansetron HCl 2 MG / ML 2ML Vial IV PRN (14:35)
[2024-06-30] MEDS ORDERED: Ondansetron 4 MG TAB PO PRN (14:40)
[2024-06-30] MEDS ORDERED: FentaNYL Citrate 50 MCG/ML 2 ML Injection ONE (15:00)
[2024-06-30] MEDS ORDERED: HYDROmorphone HCl/Pf 1MG SYR IV PRN (15:20)
[2024-06-30 16:46] LABS: Vancomycin, Random 20.4 ug/mL
[2024-06-30] MEDS ORDERED: Lisinopril 20 MG Tab PO SCH (17:30)
--- NOTE | 2024-06-30 17:33 | NUR ---
[address] MOLINA TO REPORT UNABLE TO FIND PULSE VIA DOPPLER TO LLE BELOW POPLITEAL. PT IS S/P THROMBECTOMY TODAY L POPLITEAL REOCCULDED TODAY. HE HAS A SHEATH PRESENT TO DOSALIS PEDIS INFUSING TPA AT 1MG/HR. DR MOLINA CAME TO BEDSIDE TO ASSESS PT. PAIN REMAINS 6/10 UNCHANGED SINCE PRIOR TO PROCEDURE. SKIN TO AREA APPEAR CYANOTIC AND COOL WITH NO VISIBLE SWELLING, UNCHANGED SINCE HE ARRIVE BACK FROM [facility]. PULSE IS DETECTED FOR POPLITEAL WITH DOPPLER. NO NEW ORDERS RECIEVED.
--- NOTE | 2024-06-30 17:43 | NUR ---
[address] BRIZUELA TO NOTIFY PT SBP CONSISITENTLY 160S-180S. PT DENIES ANY CHEST PAIN, DYSPNEA OR HEADACHE. NEW ORDERS RECIEVED TO RESTART HOME MED LISINOPRIL 40MG PO NOW AND QD THERE AFTER. ORDER PLACED PER DR BRIZUELA.
--- NOTE | 2024-06-30 17:49 | NUR ---
SHIFT SUMMARY PATIENT ALERT AND ORIENTED X4. CALLS APPROPRIATELY AND ABLE TO MAKE HIS NEEDS KNOWN. CHRONIC NEUROPATHY PRESENT TO BLE. S/P THROMBECTOMY TODAY DUE TO REOCCULSION OF VESSEL IN LLE. SHEATH IS PRESENT TO HIS DORSALIS PEDIS INFUSING TPA AT 1MG/HR. LIMB IS COOL AND CYANOTIC BELOW THE ANKLE WITH CHRONIC STASIS WOUNDS PRESENT PRIOR TO ADMISSION. +2 PULSE VIA DOPPLE TO L POPLITEAL BUT UNABLE TO LOCATE PULSES IN THE FOOT WITH DOPPLER- DR WALTERS AWARE. MOVEMENT RESTRICTIONS IN PLACE TO LLE, EDUCATION PROVIDED. CARDIAC: HTN SBP 160-180S. RESTARTED HOME MED LISINOPRIL, SR HR 90-100S. LUNGS: CLEAR : USING URINAL AT BEDSIDE URINE IS CLEAR/YELLOW. GI: BOWEL TONES PRESENT PT UP TO CHAIR THIS AM FOR BREAKFAST NOW HAS RESTRICTIONS TO LLE. FATHER INTO VIIST TODAY, PROVIDED UPDATES AFTER PROCEDURE HEPARIN WAS STOPPED IN CUSTOMER SALES DISTRIBUTOR AT 1425 AND NOT RESTARTED.
[2024-06-30] MEDS ORDERED: Ampicillin Sod/Sulbactam Sod 3 GM in NS 100 ML IV SCH (20:00)
[2024-06-30] MEDS ORDERED: Vancomycin HCL 1,000 MG in NS 250 ML IV SCH (21:00)
--- NOTE | 2024-06-30 22:12 | NUR ---
NURSE NOTE: PT'S FIBROGEN LEVEL DROPED FROM 811 TO 587. WAS NOTIFED AND STATES THEY ARE NOT CONCERNED ABOUT IT AT THIS TIME. FIBRINOGEN TO BE RECHECKED IN 6 HOURS
--- NOTE | 2024-06-30 22:27 | NUR ---
ASSUMPTION OF CARE: ASSUMED CARE AT START OF SHIFT (1899) REPORT RECEIVED FROM DAY SHIFT RN. PT IS DOING WELL AND LAYING IN BED. PT IS A&OX4 GCS15 IS CURRENTLY HAVING 6/10 LEFT CALF PAIN AT THIS TIME. SURGICAL SITE ON RIGHT FEMORAL LOOKS GOOD. THEY ARE ON AN ALTEPASE DRIP AT 1MG/HR. THEY WENT TO ENERGY ATTORNEY EARLIER TODAY AND FOUND THE OCCLUSION IN POPLITEAL VEIN IN LEFT LEG. PERIPHERAL IV IN LEFT ARM IS PATENT AND DRESSED WITH TAGEDERM. WOUNDS ON LEFT FOOT, UNABLE TO FIND PULSE IN LEFT FOOT. MIDDLE OF LEFT LOWER LEG AND FOOT IS COOL TO TOUCH. LINES AND CORDS ARE OUT OF THE WAY. CALL LIGHT HAS BEEN PLACED WITHIN REACH. PT TOLD TO PRESS CALL LIGHT IF THEY NEED HELP. PT IS NPO AFTER MIDNIGHT. WILL CONTINUE TO MONITOR.
[2024-07-01] VITALS (50 sets, daily range): BP systolic 87–180; BP diastolic 55–125
--- NOTE | 2024-07-01 06:22 | NUR ---
SHIFT SUMMARY: PT IS DOING WELL AND RESTING IN BED. PT WAS ABLE TO GET SOME SLEEP DURING THE NIGHT. THEY HAVE BEEN NPO SINCE MIDNIGHT. THEIR BP HAS BEEN HIGH, SYSTOLIC RANGING FROM 150-170'S AND THEY HAVE RECIEVED LABETALOL WHICH HELPED BRING SYSTOLIC PRESSURE <160. STILL UNABLE TO FIND PULSES IN LEFT FOOT, TEMPERATURE IN LOWER LEFT LEG IS WARM TO TOUCH UP TO THE ANKLE, THEN FROM THE ANKLE TO FOOT THE TEMPERATURE IS COOL. THEY RECIEVED PAIN MEDS FORM PAIN IN THE LEFT CALF. PT IS ABLE TO REPOSITION THEMSELF AND WILL USE THE URINAL ON THEIR OWN. THEIR LINES AND CORDS ARE PLACED OUT OF THE WAY. CALL LIGHT IS PLACED WITHIN REACH AND THEY WERE TOLD TO PRESS CALL BUTTON IF THEY NEED ASSISTANCE.
[2024-07-01] MEDS ORDERED: AmLODIPine Besylate 5 MG Tab PO SCH (09:00)
[2024-07-01 09:08] LABS: Hematocrit 35.1 % (37.0-53.0); Hemoglobin 11.2 g/dL (13.5-17.5); Mean Corpuscular HGB 27.7 pg (26.0-34.0); Mean Corpuscular HGB Conc 31.9 g/dL (31.5-36.5); Mean Corpuscular Volume 87 fL (80-100); Platelet Count 418 K/mm3 (150-400); RDW Coefficient Variation 12.7 % (11.7-14.2); RDW Standard Deviation 40.5 fL (35.1-46.3); Red Blood Cell Count 4.04 M/mm3 (4.30-5.90); White Blood Cell Count 20.27 K/mm3 (4.00-11.30)
[2024-07-01 09:19] LABS: Bun/Creatinine Ratio 12.5 (12.0-20.0); Calcium, Blood 8.4 mg/dL (8.5-10.1); Creatinine, Blood 1.44 mg/dL (0.60-1.20); Potassium, Blood 3.3 mmol/L (3.5-5.5)
[2024-07-01] MEDS ORDERED: NS 250 ML IV ONE (13:48)
[2024-07-01] MEDS ORDERED: NS 1,000 ML IV ONE ×2 (13:49→14:12)
[2024-07-01] MEDS ORDERED: Heparin Sodium 1000 Units/ML 10ML MDV ONE ×3 (13:50→16:24)
[2024-07-01] MEDS ORDERED: Midazolam HCl 1MG / ML 2ML Vial ONE (14:11)
[2024-07-01] MEDS ORDERED: FentaNYL Citrate 50 MCG/ML 2 ML Injection ONE (14:12)
[2024-07-01] MEDS ORDERED: Nitroglycerin 2 MG/20 ML BTL ONE (14:44)
[2024-07-01] MEDS ORDERED: Verapamil HCL 2.5 MG/ML 2ML Injection ONE (14:44)
[2024-07-01] MEDS ORDERED: Potassium Chloride 20 MEQ TabCR PO ONE (15:00)
[2024-07-01] MEDS ORDERED: Dextrose 50% 50 ML Vial IV ONE ×2 (15:35→15:40)
[2024-07-01] MEDS ORDERED: HydrALAZINE HCl 20 MG / ML 1ML Vial ONE (16:01)
[2024-07-01] MEDS ORDERED: CeFAZolin Sodium 2,000 MG in NS 100 ML IV SCH (16:06)
[2024-07-01] MEDS ORDERED: NS 500 ML IV ONE (16:22)
--- NOTE | 2024-07-01 18:51 | NUR ---
PT WITH TPA GOING THROUGH LLE SHEATH UPON ARRIVAL. PT STABLE AND NPO FOR JAVA PROGRAMMING PROFESSOR. PT WENT TO JAVA PROGRAMMING PROFESSOR AND THEY TOOK OUT THE SHEATH AND STARTED A HEPARIN DRIP. XA HAS BEEN SENT AND PHARMACY IS CURRENTLY WAITING ON RESULTS. PT NOW HAS A CARB CONST DIET AND EATING. ABLE TO SIT UP AT 2115.
[2024-07-01] MEDS ORDERED: Heparin Sodium,Porcine/0.5 NS 500 ML IV SCH (19:50)
[2024-07-02] VITALS (11 sets, daily range): BP systolic 110–162; BP diastolic 59–89
[2024-07-02 02:39] LABS: Hematocrit 26.8 % (37.0-53.0); Hemoglobin 8.8 g/dL (13.5-17.5); Mean Corpuscular HGB 28.6 pg (26.0-34.0); Mean Corpuscular HGB Conc 32.8 g/dL (31.5-36.5); Mean Corpuscular Volume 87 fL (80-100); Mean Platelet Volume 10.2 fL (9.1-12.4); Platelet Count 454 K/mm3 (150-400); RDW Standard Deviation 41.1 fL (35.1-46.3); Red Blood Cell Count 3.08 M/mm3 (4.30-5.90); White Blood Cell Count 25.47 K/mm3 (4.00-11.30)
[2024-07-02 03:03] LABS: Albumin, Blood 1.6 g/dL (3.4-5.0); Anion Gap 9 mmol/L (3-11); Blood Urea Nitrogen 21 mg/dL (8-24); Bun/Creatinine Ratio 13.1 (12.0-20.0); CO2, Blood 25 mmol/L (21-32); Calcium, Blood 7.9 mg/dL (8.5-10.1); Chloride, Blood 107 mmol/L (98-108); Glomerular Filtration Rate 55 (60-); Glucose, Blood 54 mg/dL (70-99); Magnesium, Blood 1.8 mg/dL (1.6-2.4); Phosphorus, Blood 5.2 mg/dL (2.5-4.9); Potassium, Blood 3.4 mmol/L (3.5-5.5); Sodium, Blood 138 mmol/L (136-145)
[2024-07-02] MEDS ORDERED: Dose Adjust by Pharmacy XX STA ×3 (03:27→16:09)
--- NOTE | 2024-07-02 03:40 | NUR ---
SHIFT SUMMARY NEURO: A/OX4, BASELINE NEUROPATHY BLE. CARDIAC: NSR/ST. LEFT TIBIAL PULSE PRESENT WITH DOPPLER, IMPROVING THE NIGHT PROGRESSES. NO FOOT PAIN, CALF PAIN REMAINS. SOFT BLOOD PRESSURES AT THE BEGINNING OF THE SHIT THEN PROGRESSED TO HTN. LUNGS: WNL GI/: USING URINAL. IV: POWER GLIDE PLACED. HEPARIN GTT RUNNING. LAC PIV OOZING BLOOD FROM SITE. SKIN: LLE WOUND CARE COMPLETED. MACERATION/PARTIAL DEGLOVING NOTED TO FOURTH TOE. UNSTAGEABLE NOTED ON HEAL. DUSKY TOES WITHOUT SENSATION OR PAIN. BOTH GROIN SITES WITHOUT GROSS BLEEDING, HEMATOMA OR PAIN. WBC'S TRENDING UP, HEMAGLOBIN TRENDING DOWN. POTASSIUM REPLACEMENT ORDERED AND REPEAT H&H SCHEDULED.
[2024-07-02 08:39] LABS: Hematocrit 25.4 % (37.0-53.0); Hemoglobin 8.1 g/dL (13.5-17.5)
[2024-07-02] MEDS ORDERED: Potassium Chloride 20 MEQ TabCR PO ONE (09:00)
--- NOTE | 2024-07-02 16:32 | NUR ---
RECEIVED REPORT FROM FLOYD OF ICU.
--- NOTE | 2024-07-02 16:32 | NUR ---
UPDATE REPORT GIVEN TO MEDICAL FLOOR RN. PT TO BE TAKEN VIA WC WITH ALL OF HIS BELONGINGS.
--- NOTE | 2024-07-02 18:04 | NUR ---
SHIFT SUMMARY PT AOX4, COOPERATIVE, ABLE TO MAKE NEEDS KNOWN. RUNNING HEPARIN CURRENTLY PER EMAR. WOUND CARE ORDERS FOR LEFT FOOT PLACED. COMPLAINTS OF BEING HOT AND COLD. NO OTHER ACUTE EVENTS TAKEN PLACE. BED IN LOWEST POSITION, CALL LIGHT WITHIN REACH.
[2024-07-03] MEDS ORDERED: Dose Adjust by Pharmacy XX STA ×3 (00:12→15:00)
[2024-07-03 02:56] VITALS: BP 134/72
--- NOTE | 2024-07-03 05:05 | NUR ---
SHIFT SUMMARY PT ADMITTED FOR SEPSIS DUE TO CELLULITUS LEFT FOOT.. PT HAS FOOT PAIN LIKELY DUE TO PAD AND SEPSI FROM THE WOUND. PT WAS SEEN BY DR. GARCIA FOR THROMBOECTOMY AND TPA TO IMPROVE BLOOD FLOW INTO FOOT. PT IS ON HEPARIN IV MANAGED BY PHARMACY AND IV ABX. PT PT S BED IS IN LOW POSITION, CALL LIGHT WITHIN REACH, AND RAILS ARE TIMES 2.
[2024-07-03 06:38] LABS: Hematocrit 22.3 % (37.0-53.0); Hemoglobin 7.3 g/dL (13.5-17.5); Mean Corpuscular HGB 28.4 pg (26.0-34.0); Mean Corpuscular HGB Conc 32.7 g/dL (31.5-36.5); Mean Corpuscular Volume 87 fL (80-100); Mean Platelet Volume 10.2 fL (9.1-12.4); Platelet Count 401 K/mm3 (150-400); RDW Coefficient Variation 12.8 % (11.7-14.2); Red Blood Cell Count 2.57 M/mm3 (4.30-5.90)
[2024-07-03 06:58] LABS: Albumin, Blood 1.5 g/dL (3.4-5.0); Anion Gap 11 mmol/L (3-11); Blood Urea Nitrogen 18 mg/dL (8-24); Bun/Creatinine Ratio 12.8 (12.0-20.0); CO2, Blood 26 mmol/L (21-32); Calcium, Blood 8.3 mg/dL (8.5-10.1); Chloride, Blood 106 mmol/L (98-108); Creatinine, Blood 1.41 mg/dL (0.60-1.20); Glomerular Filtration Rate 64 (60-); Glucose, Blood 57 mg/dL (70-99); Phosphorus, Blood 3.1 mg/dL (2.5-4.9); Potassium, Blood 3.6 mmol/L (3.5-5.5); Sodium, Blood 139 mmol/L (136-145)
[2024-07-03 07:29] VITALS: BP 158/84
[2024-07-03] MEDS ORDERED: Metoclopramide HCl 5MG / ML 2ML Vial IV PRN (11:50)
[2024-07-03 15:38] VITALS: BP 137/90
--- NOTE | 2024-07-03 17:53 | NUR ---
SUMMARY- AAOX4. NWB TO LEFT FOOT. X1 ASSIST WHEN UP. PT ON RA. L FOOT PAIN WELL CONTROLLED W/EMAR PAIN MEDS. PT WAS HYPOGLYCEMIC AT DINNER; BG=57. 8OZ OJ, ENSURE-PROTEIN, AND ICE CREAM GIVEN; 15 MIN RECHECK BG=64. PT IS ASYMPTOMATIC. NEXT 15 MIN RECHECK AFTER DINNER =101. MD BRIZUELA NOTIFIED. MS STATED HE WOULD DECREASE THE LANTUS DOSAGE FOR THE AM. WOUND DRESSINGS CHANGED PER ORDER THIS SHIFT.
[2024-07-03 19:21] VITALS: BP 142/75
[2024-07-04 03:23] VITALS: BP 140/83
[2024-07-04 04:58] LABS: Hematocrit 23.8 % (37.0-53.0); Hemoglobin 7.7 g/dL (13.5-17.5); Mean Corpuscular HGB 28.3 pg (26.0-34.0); Mean Corpuscular HGB Conc 32.4 g/dL (31.5-36.5); Mean Corpuscular Volume 88 fL (80-100); Mean Platelet Volume 10.3 fL (9.1-12.4); Platelet Count 398 K/mm3 (150-400); RDW Coefficient Variation 12.7 % (11.7-14.2); RDW Standard Deviation 40.4 fL (35.1-46.3); Red Blood Cell Count 2.72 M/mm3 (4.30-5.90); White Blood Cell Count 18.85 K/mm3 (4.00-11.30)
[2024-07-04] MEDS ORDERED: Dose Adjust by Pharmacy XX STA ×2 (05:20→11:39)
[2024-07-04 05:25] LABS: Albumin, Blood 1.6 g/dL (3.4-5.0); Anion Gap 10 mmol/L (3-11); Blood Urea Nitrogen 16 mg/dL (8-24); Bun/Creatinine Ratio 11.8 (12.0-20.0); CO2, Blood 26 mmol/L (21-32); Calcium, Blood 8.1 mg/dL (8.5-10.1); Chloride, Blood 105 mmol/L (98-108); Creatinine, Blood 1.36 mg/dL (0.60-1.20); Ferritin, Serum 485 ng/mL (26-388); Glomerular Filtration Rate 67 (60-); Glucose, Blood 118 mg/dL (70-99); Magnesium, Blood 1.9 mg/dL (1.6-2.4); Phosphorus, Blood 2.4 mg/dL (2.5-4.9); Potassium, Blood 3.8 mmol/L (3.5-5.5); Sodium, Blood 137 mmol/L (136-145)
[2024-07-04 07:43] VITALS: BP 131/75
[2024-07-04] MEDS ORDERED: Sertraline HCl 50 MG Tab PO SCH (09:00)
[2024-07-04] MEDS ORDERED: Insulin Glargine-Yfgn 100 Unit/mL 3 ML SYR SC SCH (09:00)
[2024-07-04] MEDS ORDERED: Clopidogrel Bisulfate 75 MG Tab PO ONE (11:50)
--- NOTE | 2024-07-04 11:51 | NUR ---
1145- MD MOLINA GAVE VERBAL TO PLACE 300MG PLAVIX NOW.
[2024-07-04] MEDS ORDERED: Aspirin 81 MG Chew PO SCH (12:00)
[2024-07-04 15:15] VITALS: BP 133/73
--- NOTE | 2024-07-04 17:11 | NUR ---
1645- PT'S LLE WOUND DRESSING CHANGED PER ORDER.
--- NOTE | 2024-07-04 17:54 | NUR ---
SUMMARY- AAOX4. X1 ASSIST. ON RA. LLE PAIN WELL CONTROLLED W/EMAR PAIN MEDS. BLOOD SUGARS WELL CONTROLLED W/ CHANGE IN LANTUS DOSAGE. WOUND DRESSING CHANGED PER ORDERS THIS SHIFT. NO ACUTE EVENTS THIS SHIFT.
[2024-07-04 19:17] VITALS: BP 127/65
[2024-07-04] MEDS ORDERED: Arginine/Glutamine/Calcium Hmb 1 Packet PO SCH (21:00)
--- NOTE | 2024-07-04 22:48 | NUR ---
SHIFT SUMMARY PT ADMITTED FOR SEPSIS DUE TO CELLULITUS LEFT FOOT.. PT HAS FOOT PAIN LIKELY DUE TO PAD AND SEPSI FROM THE WOUND. PT WAS SEEN BY DR. GARCIA FOR THROMBOECTOMY AND TPA TO IMPROVE BLOOD FLOW INTO FOOT. PT WAS GIVEN SHOWER ON SHIFT AND WOUND CARE. PT IS ON HEPARIN IV MANAGED BY PHARMACY AND IV ABX. PT PT S BED IS IN LOW POSITION, CALL LIGHT WITHIN REACH, AND RAILS ARE TIMES 2.
[2024-07-05] VITALS (7 sets, daily range): BP systolic 130–155; BP diastolic 73–94
[2024-07-05 02:46] LABS: BASOPHILS ABSOLUTE AUTO 0.02 K/mm3 (0.00-0.23); BASOPHILS PERCENT AUTO 0 % (0-2); EOSINOPHILS ABSOLUTE AUTO 0.18 K/mm3 (0.00-0.68); EOSINOPHILS PERCENT AUTO 1 % (0-6); Hematocrit 21.2 % (37.0-53.0); Hemoglobin 6.7 g/dL (13.5-17.5); IMMATURE GRAN ABSOLUTE AUTO 0.05 K/mm3 (0.00-0.10); IMMATURE GRAN PERCENT AUTO 0 % (0-1); LYMPHOCYTES ABSOLUTE AUTO 2.32 K/mm3 (0.84-5.20); LYMPHOCYTES PERCENT AUTO 15 % (21-46); MONOCYTES ABSOLUTE AUTO 0.99 K/mm3 (0.16-1.47); MONOCYTES PERCENT AUTO 6 % (4-13); Mean Corpuscular HGB 27.6 pg (26.0-34.0); Mean Corpuscular HGB Conc 31.6 g/dL (31.5-36.5); Mean Corpuscular Volume 87 fL (80-100); Mean Platelet Volume 10.1 fL (9.1-12.4); NEUTROPHILS ABSOLUTE AUTO 12.03 K/mm3 (1.96-9.15); NEUTROPHILS PERCENT AUTO 77 % (41-73); Platelet Count 384 K/mm3 (150-400); RDW Coefficient Variation 12.5 % (11.7-14.2); RDW Standard Deviation 40.3 fL (35.1-46.3); Red Blood Cell Count 2.43 M/mm3 (4.30-5.90); White Blood Cell Count 15.59 K/mm3 (4.00-11.30)
[2024-07-05] MEDS ORDERED: Dose Adjust by Pharmacy XX STA ×2 (03:09→10:34)
[2024-07-05 03:10] LABS: Alanine Aminotransfer (ALT/SGP <6 U/L (12-78); Albumin, Blood 1.4 g/dL (3.4-5.0); Albumin/Globulin Ratio 0.4 (0.8-1.8); Alk Phos 145 U/L (50-136); Anion Gap 7 mmol/L (3-11); Aspartate Aminotrans (AST/SGOT 17 U/L (12-37); Bilirubin, Total <0.1 mg/dL (0.1-1.0); Blood Urea Nitrogen 19 mg/dL (8-24); Bun/Creatinine Ratio 15.6 (12.0-20.0); CO2, Blood 28 mmol/L (21-32); Calcium, Blood 7.8 mg/dL (8.5-10.1); Chloride, Blood 105 mmol/L (98-108); Creatinine, Blood 1.22 mg/dL (0.60-1.20); Glomerular Filtration Rate 76 (60-); Glucose, Blood 207 mg/dL (70-99); Potassium, Blood 4.2 mmol/L (3.5-5.5); Sodium, Blood 136 mmol/L (136-145); Total Protein, Blood 5.4 g/dL (6.4-8.2)
[2024-07-05] MEDS ORDERED: Pantoprazole Sodium 40 MG Tab PO SCH (06:00)
--- NOTE | 2024-07-05 06:30 | NUR ---
SHIFT SUMMARY PT ADMITTED FOR SEPSIS DUE TO CELLULITUS LEFT FOOT.. PT HAS FOOT PAIN LIKELY DUE TO PAD AND SEPSI FROM THE WOUND. PT WAS SEEN BY DR. GARCIA FOR THROMBOECTOMY AND TPA TO IMPROVE BLOOD FLOW INTO FOOT. PT HAD WOUND CARE. PT IS ON HEPARIN IV MANAGED BY PHARMACY AND IV ABX. PT PT S BED IS IN LOW POSITION, CALL LIGHT WITHIN REACH, AND RAILS ARE TIMES 2.
[2024-07-05] MEDS ORDERED: Clopidogrel Bisulfate 75 MG Tab PO SCH (09:00)
[2024-07-05] MEDS ORDERED: Atorvastatin 40 MG Tab PO SCH (09:00)
[2024-07-05 09:47] LABS: Hematocrit 22.5 % (37.0-53.0)
[2024-07-05] MEDS ORDERED: Apixaban 5 MG Tab PO SCH (11:00)
--- NOTE | 2024-07-05 19:55 | NUR ---
PT admitted for sepsis caused by celluitis on the left foot. Received a blood transfusion today, PT it tolerated well. Patient also had wound care performed on 07/05/2024. Patient is on heparin IV that is managed by pharmacy and IV antibiotics. Call light within reach, bed in low position.
--- NOTE | 2024-07-05 22:16 | NUR ---
I HAVE ASSISTED/ OBSERVED STUDENT WITH PT CARE AND DOCUMENTATION, AND AGREE WITH ABOVE INFO, ETC
[2024-07-06 02:29] VITALS: BP 146/97
[2024-07-06 04:15] LABS: BASOPHILS ABSOLUTE AUTO 0.03 K/mm3 (0.00-0.23); BASOPHILS PERCENT AUTO 0 % (0-2); EOSINOPHILS ABSOLUTE AUTO 0.26 K/mm3 (0.00-0.68); EOSINOPHILS PERCENT AUTO 2 % (0-6); Hematocrit 25.1 % (37.0-53.0); Hemoglobin 8.2 g/dL (13.5-17.5); IMMATURE GRAN ABSOLUTE AUTO 0.09 K/mm3 (0.00-0.10); IMMATURE GRAN PERCENT AUTO 1 % (0-1); LYMPHOCYTES ABSOLUTE AUTO 2.37 K/mm3 (0.84-5.20); LYMPHOCYTES PERCENT AUTO 15 % (21-46); MONOCYTES ABSOLUTE AUTO 1.03 K/mm3 (0.16-1.47); MONOCYTES PERCENT AUTO 7 % (4-13); Mean Corpuscular HGB 27.6 pg (26.0-34.0); Mean Corpuscular HGB Conc 32.7 g/dL (31.5-36.5); Mean Corpuscular Volume 85 fL (80-100); Mean Platelet Volume 9.6 fL (9.1-12.4); NEUTROPHILS ABSOLUTE AUTO 11.72 K/mm3 (1.96-9.15); NEUTROPHILS PERCENT AUTO 76 % (41-73); Platelet Count 442 K/mm3 (150-400); RDW Coefficient Variation 13.2 % (11.7-14.2); RDW Standard Deviation 40.5 fL (35.1-46.3); Red Blood Cell Count 2.97 M/mm3 (4.30-5.90)
--- NOTE | 2024-07-06 04:29 | NUR ---
laborer cook house shift summary Vital signs stable. Admitted for Sepsis due to cellulitis. IV antibiotics given per EMAR. Bandage to LLE clean, dry, and intact. Patient resting quietly with few interuptions. Bed rails up x2, bed in lowest position for safety and call light within reach. Will continue to monitor.
[2024-07-06 04:50] LABS: Alanine Aminotransfer (ALT/SGP <6 U/L (12-78); Albumin, Blood 1.6 g/dL (3.4-5.0); Albumin/Globulin Ratio 0.4 (0.8-1.8); Alk Phos 149 U/L (50-136); Anion Gap 9 mmol/L (3-11); Aspartate Aminotrans (AST/SGOT 13 U/L (12-37); Bilirubin, Total 0.3 mg/dL (0.1-1.0); Blood Urea Nitrogen 29 mg/dL (8-24); Bun/Creatinine Ratio 24.8 (12.0-20.0); CO2, Blood 28 mmol/L (21-32); Calcium, Blood 8.3 mg/dL (8.5-10.1); Chloride, Blood 103 mmol/L (98-108); Creatinine, Blood 1.17 mg/dL (0.60-1.20); Globulin, Blood 4.3 g/dL (2.2-4.0); Glomerular Filtration Rate 80 (60-); Glucose, Blood 216 mg/dL (70-99); Potassium, Blood 4.3 mmol/L (3.5-5.5); Sodium, Blood 136 mmol/L (136-145); Total Protein, Blood 5.9 g/dL (6.4-8.2)
[2024-07-06 07:14] VITALS: BP 148/80
[2024-07-06] MEDS ORDERED: Insulin Human Lispro 100 Units/ML 3ML Syringe SC ONE (11:45)
[2024-07-06] MEDS ORDERED: AMLO5 PO (13:03)
[2024-07-06] MEDS ORDERED: ELIQUIS5 MG PO (13:05)
[2024-07-06] MEDS ORDERED: JUVEN PACKET1 EAC3 PO (13:06)
[2024-07-06] MEDS ORDERED: ELIQUIS5 M2 PO (13:06)
[2024-07-06] MEDS ORDERED: CLOP75 PO (13:08)
[2024-07-06] MEDS ORDERED: DOXY100 PO (13:08)
[2024-07-06] MEDS ORDERED: ATOR80 PO (13:08)
[2024-07-06] MEDS ORDERED: LACT PO (13:09)
[2024-07-06] MEDS ORDERED: PANT40 PO (13:10)
[2024-07-06] MEDS ORDERED: OXYC5 PO (13:10)
[2024-07-06] MEDS ORDERED: FT SENNA-S 8.61 EACH PO (13:11)
--- NOTE | 2024-07-06 15:00 | NUR ---
SHIFT SUMMARY AND DISCHARGE PATIENT ALERT AND INTERACTIVE. PATIENT AMBULATED TO WITH WALKER. PATIENT STATED HE LOST HIS BALANCE AND SLID DOWN THE WALL LOWERING HIMSELF. PATIENT DENIES FALLING. FATHER IN ROOM AND ALSO STATES THAT HE DID NOT FALL. PATIENT DENIES HITTING HIS HEAD AND OR INJURY. PATIENT ASSISTED OFF THE FLOOR AND CHECKED FOR ANY INJURIES. PATIENT COMPLETED SHOWER AND ASSISTED WITH DRESSING. DISCHARGE INSTRUCTIONS REVIEWED WITH PATIENT AND FATHER. IV AND POWERGLIDE REMOVED. FOOT DRESSING REPLACED AFTER SHOWER. BELONGINGS RETURNED TO PATIENT. PATIENT LEFT IN OWN POWER SCOOTER.
[2024-07-12] MEDS ORDERED: Apixaban 5 MG Tab PO SCH (09:00)
== END 2024-07-06 15:24 | disposition home or self-care (01) | DRG 854 ==
LOC: ER 11:49 → ERHOLD 16:40 → MEDS 16:40 → PCU 06-29 17:46 → ICUE 06-29 19:25 → MEDS 07-02 16:57 → ENPENDDIS 07-06 11:42 → MEDS 07-06 15:24
PROVIDERS: Internal Medicine; Physician Assistant; Student in an Organized Health Care Education/Training Program; ADMIT Internal Medicine
PROC: B41G1ZZ Fluoroscopy of Left Lower Extremity Arteries using Low Osmolar Contrast (ICD-10-PCS; 2024-06-29)
PROC: 047Q3ZZ Dilation of Left Anterior Tibial Artery, Percutaneous Approach (ICD-10-PCS; principal; 2024-06-30)
PROC: 04CQ3ZZ Extirpation of Matter from Left Anterior Tibial Artery, Percutaneous Approach (ICD-10-PCS; 2024-07-01)
PROC: 04CN3ZZ Extirpation of Matter from Left Popliteal Artery, Percutaneous Approach (ICD-10-PCS; 2024-07-01)
PROC: 04CL3ZZ Extirpation of Matter from Left Femoral Artery, Percutaneous Approach (ICD-10-PCS; 2024-07-01)
PROC: B44GZZ3 Ultrasonography of Left Lower Extremity Arteries, Intravascular (ICD-10-PCS; 2024-07-01)
PROC: 30233N1 Transfusion of Nonautologous Red Blood Cells into Peripheral Vein, Percutaneous Approach (ICD-10-PCS; 2024-07-05)
DX: A41.01 Sepsis due to Methicillin susceptible Staphylococcus aureus (principal); E11.52 Type 2 diabetes mellitus with diabetic peripheral angiopathy with gangrene; N17.9 Acute kidney failure, unspecified; A41.51 Sepsis due to Escherichia coli [E. coli]; F17.210 Nicotine dependence, cigarettes, uncomplicated; E87.6 Hypokalemia; J45.909 Unspecified asthma, uncomplicated; E11.621 Type 2 diabetes mellitus with foot ulcer; L97.529 Non-pressure chronic ulcer of other part of left foot with unspecified severity; E78.5 Hyperlipidemia, unspecified; M54.2 Cervicalgia; M54.9 Dorsalgia, unspecified; G89.29 Other chronic pain; K21.9 Gastro-esophageal reflux disease without esophagitis; I10 Essential (primary) hypertension; D64.89 Other specified anemias; Z86.14 Personal history of Methicillin resistant Staphylococcus aureus infection; Z98.890 Other specified postprocedural states; Z89.432 Acquired absence of left foot; Z79.51 Long term (current) use of inhaled steroids; Z79.899 Other long term (current) drug therapy; Z79.811 Long term (current) use of aromatase inhibitors; Z79.4 Long term (current) use of insulin; Z79.84 Long term (current) use of oral hypoglycemic drugs; Z79.01 Long term (current) use of anticoagulants; Z79.82 Long term (current) use of aspirin; Z79.85 Long-term (current) use of injectable non-insulin antidiabetic drugs; Z89.422 Acquired absence of other left toe(s)
CPT/HCPCS: 36415; 36430; 37252; 73701; 76770; 76937; 80048; 80053; 80069; 80202; 82728; 82947; 83605; 83735; 85014; 85018; 85025; 85027; 85347; 85384; 85520; 85610; 85651; 85730; 86850; 86900; 86901; 86923; 87040; 87070; 87077; 87186; 87205; 93005; 93010; 93926; 93971; 99152; 99153; 99285-25; A9270; C1725; C1751; C1753; C1757; C1760; C1769; C1887; C1894; J0295; J0360; J0690; J0780; J1171; J1644; J1815; J2250; J2543; J2997; J3010; J3370; J7030; J7040; J7050; J7799; P9016; Q9967

== ENCOUNTER 2024-07-08 02:59 | Day surgery (SDC) | payer OTHER ==
[~2024-07-08 02:59] MED LIST changes: +AMLO5 PO; +ATOR80 PO; +CLOP75 PO; +DOXY100 PO; +FT SENNA-S 8.61 EACH PO; +JUVEN PACKET1 EAC3 PO; +OXYC5 PO; +PANT40 PO
[2024-07-08] MEDS ORDERED: Lidocaine HCl 4% Cream 5 GM ONE (10:38)
== END 2024-07-08 23:00 | disposition home or self-care (01) ==
LOC: WOUND 02:59
DX: E11.621 Type 2 diabetes mellitus with foot ulcer (principal); L97.423 Non-pressure chronic ulcer of left heel and midfoot with necrosis of muscle; L89.623 Pressure ulcer of left heel, stage 3; L89.890 Pressure ulcer of other site, unstageable; E11.42 Type 2 diabetes mellitus with diabetic polyneuropathy; E11.51 Type 2 diabetes mellitus with diabetic peripheral angiopathy without gangrene; I87.2 Venous insufficiency (chronic) (peripheral); I70.213 Atherosclerosis of native arteries of extremities with intermittent claudication, bilateral legs
CPT/HCPCS: A9270; G0463

== ENCOUNTER → 2024-07-13 | Day surgery (SDC) | payer OTHER ==
[~2024-07-13] MED LIST changes: +Lidocaine HCl 4% Cream 5 GM ONE
== END ==
LOC: WOUND 01:43
DX: L89.623 Pressure ulcer of left heel, stage 3 (principal); L89.890 Pressure ulcer of other site, unstageable; L97.529 Non-pressure chronic ulcer of other part of left foot with unspecified severity; E11.621 Type 2 diabetes mellitus with foot ulcer; E11.42 Type 2 diabetes mellitus with diabetic polyneuropathy; E11.51 Type 2 diabetes mellitus with diabetic peripheral angiopathy without gangrene; I70.213 Atherosclerosis of native arteries of extremities with intermittent claudication, bilateral legs; I87.2 Venous insufficiency (chronic) (peripheral); I10 Essential (primary) hypertension; E78.5 Hyperlipidemia, unspecified; J45.909 Unspecified asthma, uncomplicated; F17.210 Nicotine dependence, cigarettes, uncomplicated
CPT/HCPCS: A9270; G0463

== ENCOUNTER 2024-07-20 19:37 | Inpatient (IN) | payer OTHER ==
[~2024-07-20] VITALS: Ht 182.9 cm; Wt 85.2 kg
[~2024-07-20 19:37] MED LIST changes: -Lidocaine HCl 4% Cream 5 GM ONE; +NS 1,000 ML IV SCH
[2024-07-20 20:49] LABS: BASOPHILS ABSOLUTE AUTO 0.04 K/mm3 (0.00-0.23); BASOPHILS PERCENT AUTO 0 % (0-2); EOSINOPHILS PERCENT AUTO 2 % (0-6); Hematocrit 26.6 % (37.0-53.0); Hemoglobin 8.7 g/dL (13.5-17.5); IMMATURE GRAN ABSOLUTE AUTO 0.04 K/mm3 (0.00-0.10); IMMATURE GRAN PERCENT AUTO 0 % (0-1); LYMPHOCYTES ABSOLUTE AUTO 2.28 K/mm3 (0.84-5.20); LYMPHOCYTES PERCENT AUTO 18 % (21-46); MONOCYTES ABSOLUTE AUTO 0.71 K/mm3 (0.16-1.47); MONOCYTES PERCENT AUTO 6 % (4-13); Mean Corpuscular HGB 27.4 pg (26.0-34.0); Mean Corpuscular HGB Conc 32.7 g/dL (31.5-36.5); Mean Corpuscular Volume 84 fL (80-100); Mean Platelet Volume 10.7 fL (9.1-12.4); NEUTROPHILS ABSOLUTE AUTO 9.09 K/mm3 (1.96-9.15); NEUTROPHILS PERCENT AUTO 74 % (41-73); Platelet Count 365 K/mm3 (150-400); RDW Coefficient Variation 13.3 % (11.7-14.2); RDW Standard Deviation 40.9 fL (35.1-46.3); Red Blood Cell Count 3.18 M/mm3 (4.30-5.90); White Blood Cell Count 12.36 K/mm3 (4.00-11.30)
[2024-07-20 21:15] LABS: Albumin, Blood 2.1 g/dL (3.4-5.0); Albumin/Globulin Ratio 0.5 (0.8-1.8); Bilirubin, Total 0.2 mg/dL (0.1-1.0); Bun/Creatinine Ratio 41.6 (12.0-20.0); Calcium, Blood 8.6 mg/dL (8.5-10.1); Creatinine, Blood 1.01 mg/dL (0.60-1.20); Globulin, Blood 4.1 g/dL (2.2-4.0); Potassium, Blood 4.8 mmol/L (3.5-5.5); Total Protein, Blood 6.2 g/dL (6.4-8.2)
[2024-07-20] MEDS ORDERED: Insulin Regular 100 Unit/ML 1ML Dose SC ONE (21:20)
[2024-07-20] MEDS ORDERED: Lactated Ringer's 1,000 ML IV ONE (21:20)
[2024-07-20 21:30] LABS: Beta-hydroxybutyrate 0.8 mg/dL (0.2-2.8)
[2024-07-20 21:56] LABS: Base Excess Venous 2.2 mmol/L; Bicarbonate Venous 26.1 mmol/L (24.0-30.0); PCO2 Venous 41.1 mmHg (38-42); pH Blood Venous 7.42 (7.34-7.37)
[2024-07-20] MEDS ORDERED: Magnesium Hydroxide Conc 10 ML UDC PO PRN (23:15)
[2024-07-20] MEDS ORDERED: Ondansetron 4 MG TAB PO PRN (23:15)
[2024-07-20 23:22] LABS: RETICULOCYTE ABSOLUTE 0.0601 M/mm3 (0.0200-0.1100); RETICULOCYTE COUNT PERCENT 1.92 % (0.50-2.50)
[2024-07-20] MEDS ORDERED: Labetalol HCL 5 MG/ML 4ML Injection (Single Dose) IV PRN (23:40)
[2024-07-20] MEDS ORDERED: Vancomycin HCL 2,000 MG in NS 500 ML IV ONE (23:45)
[2024-07-20 23:58] LABS: Ferritin, Serum 504 ng/mL (26-388); Iron Serum 37 ug/dL (65-175); Magnesium, Blood 1.6 mg/dL (1.6-2.4); Percent Saturation 23.6 % (20.0-50.0); Total Iron Binding Capacity 157 ug/dL (250-450)
[2024-07-21] VITALS (26 sets, daily range): BP systolic 102–165; BP diastolic 55–98
[2024-07-21 00:02] LABS: Glucose, Blood 655 mg/dL (70-99)
[2024-07-21 00:06] LABS: Osmolality, Serum 318 mos/KG (275-300)
[2024-07-21] MEDS ORDERED: Insulin Human Regular 100 UNIT in NS 100 ML IV SCH (00:25)
[2024-07-21] MEDS ORDERED: Potassium Chl 20MEQ/Water100ML 100 ML IV ONE (00:30)
[2024-07-21] MEDS ORDERED: Piperacillin/Tazobactam Sod 3.375 GM in NS 100 ML IV SCH ×2 (01:19)
[2024-07-21 02:27] LABS: Bun/Creatinine Ratio 37.6 (12.0-20.0); Creatinine, Blood 1.01 mg/dL (0.60-1.20); Potassium, Blood 4.2 mmol/L (3.5-5.5)
[2024-07-21] MEDS ORDERED: Insulin Glargine-Yfgn 100 Unit/mL 3 ML SYR SC ONE (03:20)
[2024-07-21] MEDS ORDERED: OxyCODONE HCL 5 MG TAB PO PRN (03:20)
[2024-07-21] MEDS ORDERED: NS 1,000 ML BAG IR SCH (03:25)
[2024-07-21 06:05] LABS: BASOPHILS ABSOLUTE AUTO 0.03 K/mm3 (0.00-0.23); BASOPHILS PERCENT AUTO 0 % (0-2); EOSINOPHILS ABSOLUTE AUTO 0.32 K/mm3 (0.00-0.68); EOSINOPHILS PERCENT AUTO 2 % (0-6); Hematocrit 21.7 % (37.0-53.0); Hemoglobin 7.3 g/dL (13.5-17.5); IMMATURE GRAN ABSOLUTE AUTO 0.08 K/mm3 (0.00-0.10); IMMATURE GRAN PERCENT AUTO 1 % (0-1); LYMPHOCYTES ABSOLUTE AUTO 2.84 K/mm3 (0.84-5.20); LYMPHOCYTES PERCENT AUTO 20 % (21-46); MONOCYTES ABSOLUTE AUTO 0.89 K/mm3 (0.16-1.47); MONOCYTES PERCENT AUTO 6 % (4-13); Mean Corpuscular HGB 28.1 pg (26.0-34.0); Mean Corpuscular HGB Conc 33.6 g/dL (31.5-36.5); Mean Corpuscular Volume 84 fL (80-100); Mean Platelet Volume 10.8 fL (9.1-12.4); NEUTROPHILS ABSOLUTE AUTO 10.01 K/mm3 (1.96-9.15); NEUTROPHILS PERCENT AUTO 71 % (41-73); Platelet Count 300 K/mm3 (150-400); RDW Coefficient Variation 13.2 % (11.7-14.2); RDW Standard Deviation 40.3 fL (35.1-46.3); White Blood Cell Count 14.17 K/mm3 (4.00-11.30)
[2024-07-21 06:22] LABS: Albumin, Blood 1.7 g/dL (3.4-5.0); Albumin/Globulin Ratio 0.5 (0.8-1.8); Bilirubin, Total 0.2 mg/dL (0.1-1.0); Bun/Creatinine Ratio 37.4 (12.0-20.0); Calcium, Blood 8.5 mg/dL (8.5-10.1); Creatinine, Blood 0.94 mg/dL (0.60-1.20); Globulin, Blood 3.7 g/dL (2.2-4.0); Potassium, Blood 4.2 mmol/L (3.5-5.5); Total Protein, Blood 5.4 g/dL (6.4-8.2)
--- NOTE | 2024-07-21 06:36 | NUR ---
SHIFT SUMMARY PT ARRIVED AT ICU 14 AT 0100 VIA BED FROM ED, ALERT AND ORIENTED TO ALL, IN NO APPARENT DISTRESS. NUMBNESS IN BOTH FEET, WORSE IN LEFT, WITH SEVERE DIABETIC ULCERS IN LEFT FOOT. PT SENT TO HOSPITAL FOR POTENTIAL AMPUTATION OF REMAINING 3,4,5TH METATARSALS. PT IN PAIN 5/10, THROBBING IN LEFT FOOT- WILL TREAT PRN. SINUS RHYTHM IN THE 80'S WITH STABLE BP. 100 SATURATION ON RA. NO BM DURING SHIFT. NO CHEST PAIN/PRESSURE, SOB, AB PAIN, N/V THROUGHOUT SHIFT. PT STARTED ON INSULIN DRIP UPON ARRIVAL. STARTED AT 8.5 DUE TO WEIGHT AND WAS QUICKLY OFF THE DRIP BY 0500, SHORTLY AFTER LANTUS DOSE OF 40 UNITS. LAST POC GLUCOSE WAS 165 AND GLUCOSE WITH AM LABS WAS 198 (AFTER EATING TWO SANDWICHES). PODIATRY CONSULT PLACED AND CALLED. CC DIET ORDERED BUT TOLD PT I AM UNSURE IF HE WILL BE ALLOWED TO EAT BREAKFAST DUE TO POTENTIAL SURGERY. REPORT GIVEN ON ONC DAY RN.
[2024-07-21] MEDS ORDERED: Insulin Human Lispro 100 Units/ML 3ML Syringe SC SCH (07:30)
[2024-07-21] MEDS ORDERED: Sennosides 8.6 MG Tab PO SCH (09:00)
[2024-07-21] MEDS ORDERED: Lactobacil 2-S.Thermo-Bifido 1 1 Cap PO SCH (09:00)
[2024-07-21] MEDS ORDERED: HUMALOG KW100 UNIT/1 SC (09:37)
[2024-07-21] MEDS ORDERED: AMARYL PO (09:41)
[2024-07-21] MEDS ORDERED: STEGLATRO15 MG PO (09:44)
[2024-07-21] MEDS ORDERED: ALBU90OI INH (09:45)
[2024-07-21 10:12] LABS: Bun/Creatinine Ratio 39.6 (12.0-20.0); Calcium, Blood 8.7 mg/dL (8.5-10.1); Creatinine, Blood 0.88 mg/dL (0.60-1.20); Potassium, Blood 4.2 mmol/L (3.5-5.5)
[2024-07-21] MEDS ORDERED: Ropivacaine 0.5% HCL/PF 5 MG/ML 30ML Vial ONE (14:20)
[2024-07-21] MEDS ORDERED: propofoL 50 ML IV ONE (14:20)
[2024-07-21] MEDS ORDERED: propofoL 40 ML IV ONE (14:25)
[2024-07-21] MEDS ORDERED: Metoclopramide HCl 5MG / ML 2ML Vial ONE (14:27)
[2024-07-21] MEDS ORDERED: EpiNEPhrine 1 MG/1 ML 1ML Vial ONE (14:27)
[2024-07-21] MEDS ORDERED: Ondansetron HCl 2 MG / ML 2ML Vial ONE (14:27)
[2024-07-21] MEDS ORDERED: Dexamethasone Sod Phos 10 MG/ML 1ML VIAL ONE (14:27)
[2024-07-21] MEDS ORDERED: Lactated Ringer's 1,000 ML IV SCH (14:30)
[2024-07-21 14:36] LABS: Vancomycin, Random 16.5 ug/mL
[2024-07-21] MEDS ORDERED: Dexmedetomidine HCL 200 MCG / 2 ML ONE (14:39)
--- NOTE | 2024-07-21 14:49 | NUR ---
History, Chart, Medications and Allergies reviewed before start of procedure. Lungs clear T/O to Auscultation. Patient confirms NPO status and agrees with scheduled surgerY since last ate at breakfast. Anes aware. Pre-Op teaching done. Pt verbalizes understanding.
[2024-07-21] MEDS ORDERED: FentaNYL Citrate 50 MCG/ML 2 ML Injection ONE ×2 (14:57→16:00)
--- NOTE | 2024-07-21 15:23 | NUR ---
1458: Dr. Cole at bedside to perform nerve blocks in preop. 1459: Timeout complete by RN. Premeds given by Dr. Cole, see anesthesia notes. 1500: Adductor canal nerve block time start. 1502: Adductor canal nerve block time end. Pt repositioned for second block. 1506: Popliteal Sciatic nerve block time start. 1509: Popliteal Sciatic nerve block end time. Pt tolerated procedure well. HR. BP, pulse ox monitored and stable throughout procedure.
[2024-07-21] MEDS ORDERED: Famotidine 10 MG/ML 2ML Vial ONE (15:24)
[2024-07-21] MEDS ORDERED: CeFAZolin Sodium 2,000 MG in NS 100 ML IV SCH (15:40)
[2024-07-21] MEDS ORDERED: Tranexamic Acid 100 ML IV SCH (15:45)
[2024-07-21] MEDS ORDERED: Rocuronium Bromide 10 MG/ML 5ML Injection IV ONE (15:51)
[2024-07-21] MEDS ORDERED: Sugammadex Sodium 200 MG/2ML SDV (100 MG/ML) ONE (15:51)
[2024-07-21] MEDS ORDERED: Ketorolac Tromethamine 30mg Vial ONE (15:51)
[2024-07-21] MEDS ORDERED: Vancomycin HCL 1,250 MG in NS 250 ML IV SCH (16:00)
[2024-07-21] MEDS ORDERED: Midazolam HCl 1MG / ML 2ML Vial ONE (16:00)
[2024-07-21] MEDS ORDERED: Vancomycin HCl 1000 MG ADDvantage ONE (16:36)
--- NOTE | 2024-07-21 18:05 | NUR ---
PT ARRIVED TO RM 224 FROM PACU TRANSFERRED PT FROM [facility] TO BED. DRESSING/STUMP SOCK TO LLE CDI. PT DENIES PAIN. VSS. COVERED CBG PER ORDERS. PT EATING DINNER. CALL LIGHT IN REACH.
[2024-07-21] MEDS ORDERED: Insulin Glargine-Yfgn 100 Unit/mL 3 ML SYR SC SCH (21:00)
[2024-07-22] VITALS (8 sets, daily range): BP systolic 143–160; BP diastolic 81–92
[2024-07-22] MEDS ORDERED: NS 250 ML IV PRN (00:20)
[2024-07-22 04:42] LABS: Hematocrit 25.5 % (37.0-53.0); Hemoglobin 8.2 g/dL (13.5-17.5); Mean Corpuscular HGB 27.4 pg (26.0-34.0); Mean Corpuscular HGB Conc 32.2 g/dL (31.5-36.5); Mean Corpuscular Volume 85 fL (80-100); Mean Platelet Volume 10.8 fL (9.1-12.4); Platelet Count 301 K/mm3 (150-400); RDW Coefficient Variation 13.6 % (11.7-14.2); RDW Standard Deviation 42.3 fL (35.1-46.3); Red Blood Cell Count 2.99 M/mm3 (4.30-5.90); White Blood Cell Count 14.36 K/mm3 (4.00-11.30)
[2024-07-22] MEDS ORDERED: Piperacillin/Tazobactam Sod 3.375 GM in NS 100 ML IV SCH (06:00)
--- NOTE | 2024-07-22 07:04 | NUR ---
SHIFT SUMMARY NOC. 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 STUMP SOCK DRESSING C/D/I. PT MEDICATED FOR PAIN WITH OXY 5MG Q6 HOURS WITH REPORTED RELIEF OF SX. PT'S BEDTIME GLUCOSE 328 MG/DL. MEDICATED WITH 40 UNITS LONG ACTING AND 3 UNITS SHORT ACTING. ABX RUNNING PER EMAR ORDERS. PT VOIDING AND TOLERATING PO INTAKE. MAKES NEEDS KNOWN, CALL LIGHT IN REACH.
[2024-07-22] MEDS ORDERED: Insulin Glargine-Yfgn 100 Unit/mL 3 ML SYR SC SCH (08:00)
[2024-07-22] MEDS ORDERED: Gabapentin 300 MG Cap PO PRN (09:50)
[2024-07-22] MEDS ORDERED: Empagliflozin 25 MG TAB PO SCH (09:52)
[2024-07-22] MEDS ORDERED: Albuterol HFA200 ACT/6.7 GM INH INH PRN (09:55)
[2024-07-22] MEDS ORDERED: Sertraline HCl 50 MG Tab PO SCH (10:00)
[2024-07-22] MEDS ORDERED: Aspirin 81 MG TabEC PO SCH (10:00)
[2024-07-22] MEDS ORDERED: AmLODIPine Besylate 5 MG Tab PO SCH (10:00)
[2024-07-22] MEDS ORDERED: OxyCODONE HCL 5 MG TAB PO PRN (15:10)
[2024-07-22] MEDS ORDERED: FentaNYL Citrate 50 MCG/ML 2 ML Injection IV PRN (15:10)
--- NOTE | 2024-07-22 15:11 | NUR ---
INCREASED PAIN PATIENT REPORTING 8/10 PAIN DESPITE 5MG PO OXYCODONE ADMINISTRATION PER EMAR EARLIER. MD NIXON CONTACTED - ORDER RECEIVED TO ADJUST CURRENT OXYCODONE ORDER TO 5-10MG PO Q4H PRN, FOR SCHEDULED TYLENOL 1000MG Q8H, AND FOR IV FENTANYL 25-50MCG Q4 PRN FOR BREAK THROUGH PAIN.
[2024-07-22] MEDS ORDERED: Acetaminophen 500 MG Tab PO SCH (16:00)
[2024-07-22 16:24] LABS: Vancomycin, Trough 16.8 ug/mL (5.0-10.0)
--- NOTE | 2024-07-22 18:07 | NUR ---
SHIFT SUMMARY PATIENT ALERT AND ORIENTED X4. COMMUNICATING NEEDS EFFECTIVELY. SBP 140s-160s. MAP >65. HOME NORVASC STARTED THIS MORNING. DENIES CHEST PAIN, PRESSURE. ON ROOM AIR, SATs >90%. DENIES SOB. POD 1 L BKA. MANAGING PAIN PER EMAR WITH ADJUSTED REGIMEN (SEE PREVIOUS NOTE). STUMP SOCK C/D/I. WORKED WITH PHYSICAL AND OCCUPATIONAL THERAPY - [facility] [place]. AMBULATING WITH 1P ASSIST FWW GB TO CHAIR. IR CONSULT IN PLACE - MD GARCIA NOTIFIED OF CONSULT VIA FAX. BEDBATH COMPLETED TODAY. TOLERATING PO INTAKE. VOIDING. CALL LIGHT IN REACH.
[2024-07-22] MEDS ORDERED: Docusate Sodium/Senna 1 Tab PO SCH (21:00)
[2024-07-23 04:54] VITALS: BP 154/87
[2024-07-23] MEDS ORDERED: Pantoprazole Sodium 40 MG Tab PO SCH (06:00)
--- NOTE | 2024-07-23 06:53 | NUR ---
SHIFT SUMMARY PT WAS HAVING PAIN AT START OF SHIFT, MEDICATED PRN PER EMAR. GAVE SCHEDULED MEDS PER EMAR. AFTER PAIN WAS UNDER CONTROL PT SLEPT WELL WHEN UNDISTURBED. DRSG AND NET C/D/I LEFT STUMP. POWER PICC LT UPPER ARM NOT WORKING. PATIENT HAS TWO SL LT AC AND RIGHT FA BOTH FLUSH WELL. MEDICATED THIS AM FOR PAIN WITH OXYCODONE 10 MG, IT HAD BEEN 8 HOURS. GOOD URINE OUTPUT. EMPTIED 1150ML FROM URINAL THIS AM. WILL GIVE REPORT TO ONCOMING RN.
[2024-07-23 07:09] VITALS: BP 154/81
[2024-07-23] MEDS ORDERED: Atorvastatin 40 MG Tab PO SCH (09:00)
--- NOTE | 2024-07-23 12:59 | NUR ---
DISCHARGE SUMMARY POD 2 LEFT BKA. DRESSING CHANGED- OLD DRESSING REMOVED, CLEANSED, REDRESSED WITH STERILE 4X4s AND MARISELA WRAP. STUMP SOCK APPLIED OVER CLEAN DRESSING. INCISION C/D/I. ALL BELONGING RETURNED TO PT. REPORT GIVEN TO ANDRA. PT DISCHARGED TO ANDRA.
== END 2024-07-23 12:52 | DRG 240 ==
LOC: ER 19:37 → ICUE 23:12 → SURS 07-21 17:18
PROVIDERS: Family Medicine; Internal Medicine; Orthopaedic Surgery Sports Medicine; Student in an Organized Health Care Education/Training Program; ADMIT Internal Medicine
PROC: 0Y6J0Z3 Detachment at Left Lower Leg, Low, Open Approach (ICD-10-PCS; principal; 2024-07-21 15:00)
DX: E11.52 Type 2 diabetes mellitus with diabetic peripheral angiopathy with gangrene (principal); E87.1 Hypo-osmolality and hyponatremia; E87.20 Acidosis, unspecified; E11.9 Type 2 diabetes mellitus without complications; J45.909 Unspecified asthma, uncomplicated; I10 Essential (primary) hypertension; E78.5 Hyperlipidemia, unspecified; M54.2 Cervicalgia; I87.2 Venous insufficiency (chronic) (peripheral); E11.65 Type 2 diabetes mellitus with hyperglycemia; M54.9 Dorsalgia, unspecified; D64.9 Anemia, unspecified; G89.29 Other chronic pain; K21.9 Gastro-esophageal reflux disease without esophagitis; Z89.422 Acquired absence of other left toe(s); Z79.811 Long term (current) use of aromatase inhibitors; Z79.84 Long term (current) use of oral hypoglycemic drugs; Z79.899 Other long term (current) drug therapy; Z79.82 Long term (current) use of aspirin; Z79.01 Long term (current) use of anticoagulants; Z79.4 Long term (current) use of insulin; Z79.51 Long term (current) use of inhaled steroids; Z79.2 Long term (current) use of antibiotics; Z79.891 Long term (current) use of opiate analgesic; Z87.891 Personal history of nicotine dependence; Z89.432 Acquired absence of left foot; Z86.14 Personal history of Methicillin resistant Staphylococcus aureus infection; Z86.19 Personal history of other infectious and parasitic diseases; Z87.19 Personal history of other diseases of the digestive system
CPT/HCPCS: 36415; 80048; 80053; 80202; 82010; 82607; 82728; 82746; 82803; 82947; 83540; 83550; 83605; 83735; 83930; 85025; 85027; 85045; 86140; 87040; 87070; 87075; 87205; 94762; 96360; 97110; 97116; 97162; 97165; 97530; 97535; 99285; A9270; C1751; J0171; J1100; J1815; J1885; J2250; J2405; J2543; J2704; J2765; J2795; J3010; J3370; J3480; J7030; J7040; J7050; J7120

== ENCOUNTER → 2024-08-23 | Outpatient (CLI) | payer OTHER ==
[~2024-08-23] MED LIST changes: +AMARYL PO; -NS 1,000 ML IV SCH
[2024-08-23 20:54] LABS: Creatinine, Urine Random 14.8 mg/dL (27.00-270.00)
[2024-08-23 21:15] LABS: Microalb/Creat Ratio UR, Rand 6189.19 mg/g (0.000-30.000)
== END ==
LOC: LAB SHORT 13:15 → LAB 13:15
PROVIDERS: Physician Assistant
DX: E11.65 Type 2 diabetes mellitus with hyperglycemia (principal); Z79.4 Long term (current) use of insulin
CPT/HCPCS: 82043; 82570

== ENCOUNTER 2024-11-29 10:32 | Observation (INO) | payer OTHER ==
[2024-11-29] VITALS (25 sets, daily range): BP systolic 129–173; BP diastolic 79–99
[~2024-11-29] VITALS: Ht 182.9 cm; Wt 74.9 kg
[2024-11-29] MEDS ORDERED: Ondansetron HCl 2 MG / ML 2ML Vial IV ONE (11:00)
[2024-11-29] MEDS ORDERED: NS 1,000 ML IV SCH ×3 (11:00→14:25)
[2024-11-29 12:09] LABS: BASOPHILS ABSOLUTE AUTO 0.02 K/mm3 (0.00-0.23); BASOPHILS PERCENT AUTO 0 % (0-2); EOSINOPHILS ABSOLUTE AUTO 0.02 K/mm3 (0.00-0.68); EOSINOPHILS PERCENT AUTO 0 % (0-6); Hematocrit 45.0 % (37.0-53.0); Hemoglobin 15.1 g/dL (13.5-17.5); IMMATURE GRAN ABSOLUTE AUTO 0.08 K/mm3 (0.00-0.10); IMMATURE GRAN PERCENT AUTO 1 % (0-1); LYMPHOCYTES ABSOLUTE AUTO 2.20 K/mm3 (0.84-5.20); LYMPHOCYTES PERCENT AUTO 15 % (21-46); MONOCYTES ABSOLUTE AUTO 1.17 K/mm3 (0.16-1.47); MONOCYTES PERCENT AUTO 8 % (4-13); Mean Corpuscular HGB Conc 33.6 g/dL (31.5-36.5); Mean Corpuscular Volume 83 fL (80-100); NEUTROPHILS ABSOLUTE AUTO 11.24 K/mm3 (1.96-9.15); NEUTROPHILS PERCENT AUTO 77 % (41-73); NRBC ABSOLUTE 0.00 K/mm3 (0.00-0.02); NRBC Auto 0.0 /100 WBC (0.0-0.2); Platelet Count 299 K/mm3 (150-400); RDW Coefficient Variation 12.7 % (11.7-14.2); RDW Standard Deviation 38.2 fL (35.1-46.3)
[2024-11-29 12:16] LABS: pH Blood Venous 7.31 (7.34-7.37)
[2024-11-29 12:31] LABS: Anion Gap 17.0 mmol/L (3-11); Blood Urea Nitrogen 38.0 mg/dL (8-24); CO2, Blood 22.0 mmol/L (21-32); Calcium, Blood 8.1 mg/dL (8.5-10.1); Chloride, Blood 92.0 mmol/L (98-108); Creatinine, Blood 1.05 mg/dL (0.60-1.20); Glucose, Blood 631.0 mg/dL (70-99); Potassium, Blood 4.5 mmol/L (3.5-5.5); Sodium, Blood 126.0 mmol/L (136-145)
[2024-11-29] MEDS ORDERED: Insulin Human Regular 100 UNIT in NS 100 ML IV SCH (14:25)
[2024-11-29 14:52] LABS: Source, Urine Clean Catch
[2024-11-29 14:58] LABS: Bilirubin, Urine Neg (Neg); Glucose Qualitative, Urine 4+ (Neg); Ketones, Urine 3+ (Neg); Leukocyte Esterase, Urine Neg (Neg); Protein, Urine 3+ (Neg); Specific Gravity, Urine 1.010 (1.003-1.022); Urobilinogen, Urine NORM (Normal)
[2024-11-29] MEDS ORDERED: Ondansetron HCl 2 MG / ML 2ML Vial IV PRN (15:00)
[2024-11-29] MEDS ORDERED: CYCL10 (15:04)
[2024-11-29] MEDS ORDERED: Lovastatin20 MG PO (15:04)
[2024-11-29] MEDS ORDERED: OMEP20ER PO (15:05)
[2024-11-29] MEDS ORDERED: METO10 (15:05)
[2024-11-29] MEDS ORDERED: GLIM4 (15:05)
[2024-11-29] MEDS ORDERED: LISI20 PO (15:05)
[2024-11-29] MEDS ORDERED: ELIQUIS5 M2 PO (15:09)
[2024-11-29 15:22] LABS: U Amphetamine Screen Not Detected; U Barbituate Screen Not Detected; U Benzodiazapine Screen Not Detected; U Buprenorphine Screen Not Detected; U Cannabinoids Screen DETECTED; U Cocaine Screen Not Detected; U Methadone Screen Not Detected; U Methamphetamine Screen Not Detected; U Opiates Screen Not Detected; U Oxycodone Screen Not Detected; U Phencyclidine Screen Not Detected
[2024-11-29 15:53] LABS: Anion Gap 14 mmol/L (3-11); Blood Urea Nitrogen 38 mg/dL (8-24); CO2, Blood 22 mmol/L (21-32); Calcium, Blood 7.5 mg/dL (8.5-10.1); Chloride, Blood 96 mmol/L (98-108); Creatinine, Blood 0.99 mg/dL (0.60-1.20); Glucose, Blood 540 mg/dL (70-99); Potassium, Blood 4.6 mmol/L (3.5-5.5); Sodium, Blood 127 mmol/L (136-145)
[2024-11-29 16:01] LABS: Color, Urine Pale Yellow (P-Yellow); White Blood Cells, Urine 0-2 /hpf (0-5)
[2024-11-29] MEDS ORDERED: Albuterol HFA200 ACT/6.7 GM INH INH PRN (16:05)
[2024-11-29] MEDS ORDERED: D5W-1/2NS 1,000 ML IV SCH (17:00)
--- NOTE | 2024-11-29 17:59 | NUR ---
TRANSFER TO ICU/END OF SHIFT SUMMARY PT TRANSFERED TO ICU BY RICHARD, TRANSFERED TO BED WITH SBA. PT IS A&O X4, ABLE TO MAKE NEEDS KNOWN AND CAN MOVE ALL EXTREMITIES EQUALLY AND BILATERALLY, PT HAS L BKA. CONTINUOUS CARDIAC MONITORING IN PLACE SHOWING SINUS TACH WITH HR IN THE 100'S. PT IS ON RA WITH SP02 >92%. PT IS HAVING SLIGHT NUASEA WITH RETCHING. INSLUIN IS INFUSING AT 3 U/HR AND NS W/ 20MEQ KCL @ 200MLS/HR. TWO PIV'S IN PLACE AT LAC AND LFA. BED IN LOWEST POSITION, CARE CONTINUES.
[2024-11-29 19:16] LABS: Anion Gap 10.0 mmol/L (3-11); Blood Urea Nitrogen 34.0 mg/dL (8-24); CO2, Blood 24.0 mmol/L (21-32); Calcium, Blood 7.8 mg/dL (8.5-10.1); Chloride, Blood 104.0 mmol/L (98-108); Creatinine, Blood 0.88 mg/dL (0.60-1.20); Glucose, Blood 305.0 mg/dL (70-99); Potassium, Blood 4.0 mmol/L (3.5-5.5); Sodium, Blood 134.0 mmol/L (136-145)
--- NOTE | 2024-11-29 21:26 | NUR ---
ASSUMED CARE AT 1900 PATIENT IS ALERT AND ORIENTED X4. INDEPENDENT IN BED. SP02 98% ON RA, DENIES SOB. HR ST 101, BP STABLE. DENIES CP/PRESSURE. INSULIN DRIP INFUSING, CBG Q1H, SWITCHED TO D5 1/2 NS AT 200 MLS/HR. STATES NAUSEA IS MILD RIGHT NOW, NO VOMITTING. CALL LIGHT IN REACH
[2024-11-29 23:28] LABS: Anion Gap 9.0 mmol/L (3-11); Blood Urea Nitrogen 31.0 mg/dL (8-24); CO2, Blood 24.0 mmol/L (21-32); Calcium, Blood 7.2 mg/dL (8.5-10.1); Chloride, Blood 107.0 mmol/L (98-108); Creatinine, Blood 0.8 mg/dL (0.60-1.20); Glucose, Blood 239.0 mg/dL (70-99); Potassium, Blood 3.9 mmol/L (3.5-5.5); Sodium, Blood 136.0 mmol/L (136-145)
[2024-11-30] VITALS (11 sets, daily range): BP systolic 135–160; BP diastolic 84–106
[2024-11-30] MEDS ORDERED: Insulin Glargine 100 Unit/ML 3 ML SYR SC SCH (00:40)
[2024-11-30 04:15] LABS: BASOPHILS ABSOLUTE AUTO 0.02 K/mm3 (0.00-0.23); BASOPHILS PERCENT AUTO 0 % (0-2); EOSINOPHILS ABSOLUTE AUTO 0.13 K/mm3 (0.00-0.68); EOSINOPHILS PERCENT AUTO 1 % (0-6); Hematocrit 37.5 % (37.0-53.0); Hemoglobin 12.7 g/dL (13.5-17.5); IMMATURE GRAN ABSOLUTE AUTO 0.05 K/mm3 (0.00-0.10); IMMATURE GRAN PERCENT AUTO 1 % (0-1); LYMPHOCYTES ABSOLUTE AUTO 3.58 K/mm3 (0.84-5.20); LYMPHOCYTES PERCENT AUTO 33 % (21-46); MONOCYTES ABSOLUTE AUTO 0.99 K/mm3 (0.16-1.47); MONOCYTES PERCENT AUTO 9 % (4-13); Mean Corpuscular HGB Conc 33.9 g/dL (31.5-36.5); Mean Corpuscular Volume 82 fL (80-100); NEUTROPHILS ABSOLUTE AUTO 6.24 K/mm3 (1.96-9.15); NEUTROPHILS PERCENT AUTO 57 % (41-73); NRBC ABSOLUTE 0.00 K/mm3 (0.00-0.02); NRBC Auto 0.0 /100 WBC (0.0-0.2); Platelet Count 202 K/mm3 (150-400); RDW Coefficient Variation 12.5 % (11.7-14.2); RDW Standard Deviation 37.5 fL (35.1-46.3)
[2024-11-30 04:47] LABS: Alanine Aminotransfer (ALT/SGP 10.0 U/L (12-78); Albumin, Blood 1.9 g/dL (3.4-5.0); Albumin/Globulin Ratio 0.7 (0.8-1.8); Anion Gap 7.0 mmol/L (3-11); Aspartate Aminotrans (AST/SGOT 9.0 U/L (12-37); Bilirubin, Total 0.4 mg/dL (0.1-1.0); Blood Urea Nitrogen 26.0 mg/dL (8-24); CO2, Blood 26.0 mmol/L (21-32); Calcium, Blood 7.4 mg/dL (8.5-10.1); Chloride, Blood 107.0 mmol/L (98-108); Creatinine, Blood 0.76 mg/dL (0.60-1.20); Globulin, Blood 2.7 g/dL (2.2-4.0); Glucose, Blood 136.0 mg/dL (70-99); Potassium, Blood 3.5 mmol/L (3.5-5.5); Sodium, Blood 136.0 mmol/L (136-145); Total Protein, Blood 4.6 g/dL (6.4-8.2)
[2024-11-30] MEDS ORDERED: Pantoprazole Sodium 40 MG Injection IV SCH (06:00)
--- NOTE | 2024-11-30 06:08 | NUR ---
SHIFT SUMMARY PATIENT ABLE TO EAT FOOD, LONG ACTING INSULIN GIVEN PER EMAR AND INSULIN DRIP TITRATED OFF AT APPROX 0300. DENIES N/V. DIET ORDERED. PATIENT INDEPENDENT IN ROOM. CALL LIGHT IN REACH
--- NOTE | 2024-11-30 07:00 | NUR ---
ASSUMPTION OF CARE PT IS ALERT AND ORIENTED. REPORTS FEELING WELL TODAY AND IS HOPING TO BE DISCHARGED. TOLERATING PO FLUIDS AND JELLO, WAITING FOR BREAKFAST TRAY TO ARRIVE. BED IN LOW POSITION, CALL LIGHT WITHIN REACH.
[2024-11-30] MEDS ORDERED: Insulin Human Lispro 100 Units/ML 3ML Syringe SC SCH ×3 (07:30→08:30)
[2024-11-30] MEDS ORDERED: Insulin Glargine-Yfgn 100 Unit/mL 3 ML SYR SC SCH (08:00)
[2024-11-30] MEDS ORDERED: Enoxaparin 40 MG/0.4 ML SYR SC SCH (09:00)
--- NOTE | 2024-11-30 09:27 | NUR ---
UPDATE PT TOLERATED BREAKFAST WELL. HOSPITALIST ROUNDED WITH PLAN TO DISCHARGE TODAY. PT STS HE HAS ALL MEDICATIONS AT HOME AND CONTINUOUS GLUCOSE MONITORING EQUIPMENT AT HOME. PT CURRENTLY SITTING UP IN CHAIR, CALL LIGHT WITHIN REACH.
--- NOTE | 2024-11-30 11:52 | NUR ---
DISCHARGE PT AND FAMILY PROVIDED DISCHARGE INSTRUCTIONS. PRESCRIPTIONS FAXED TO [facility]. FOLLOW UP APPT SCHEDULED WITH PCP ON 12/02 AT 1100. PT DRESSED SELF. PROVIDED WHEELCHAIR RIDE OUT TO VEHICLE.
== END 2024-11-30 11:35 | disposition home or self-care (01) ==
LOC: ER 10:32 → ICUE 10:33
PROVIDERS: Student in an Organized Health Care Education/Training Program; ADMIT Student in an Organized Health Care Education/Training Program
DX: E11.10 Type 2 diabetes mellitus with ketoacidosis without coma (principal); I10 Essential (primary) hypertension; K21.9 Gastro-esophageal reflux disease without esophagitis; E78.5 Hyperlipidemia, unspecified; E11.51 Type 2 diabetes mellitus with diabetic peripheral angiopathy without gangrene; D72.829 Elevated white blood cell count, unspecified; F17.210 Nicotine dependence, cigarettes, uncomplicated; Z79.4 Long term (current) use of insulin; Z79.84 Long term (current) use of oral hypoglycemic drugs; Z79.82 Long term (current) use of aspirin; Z79.899 Other long term (current) drug therapy; Z89.422 Acquired absence of other left toe(s); Z89.512 Acquired absence of left leg below knee
CPT/HCPCS: 36415; 74177; 80048; 80053; 81001; 82010; 82803; 82947; 83036; 83690; 85025; 93005; 93010; 94762; 96361; 96375; 99285-25; G0378; J1815; J2405; J2470; J3480; J7030; J7042; Q9967